=== PATIENT | female | born 1995 | race Caucasian/White ===

== ENCOUNTER 2022-01-15 17:16 | Outpatient (CLI) | payer OTHER, SELFPAY ==
[2022-01-15 17:41] LABS: Amphetamine Urine VISTA NEGATIVE (<1000 ng/mL); Barbiturate Urine VISTA NEGATIVE (< 200 ng/mL); Benzodiazepine Urine VISTA NEGATIVE (< 200 ng/mL); Cocaine Urine VISTA NEGATIVE (< 300 ng/mL); Ecstacy Urine VISTA NEGATIVE (< 500 ng/mL); Methadone Urine VISTA NEGATIVE (< 300 ng/mL); PCP Urine VISTA NEGATIVE (< 25 ng/mL); THC Urine VISTA NEGATIVE (< 50 ng/mL); Vista UDS pH Range 6
[2022-01-18 09:08] LABS: Chlamydia By Nucleic Acid AMP Negative (Negative)
[2022-01-18 10:21] LABS: Gonococcus By Nucleic Acid AMP Negative (Negative)
[2022-01-21 16:43] LABS: HPV Reflexed? NOT INDICATED
== END 2022-01-15 23:59 | disposition home or self-care (01) ==
PROVIDERS: PCP Family Medicine; Visit Provider Obstetrics & Gynecology
DX: Z34.91 Encounter for supervision of normal pregnancy, unspecified, first trimester (principal); Z12.4 Encounter for screening for malignant neoplasm of cervix
CPT/HCPCS: 80307; 87086; 87088; 87491; 87591; 88175; G0145

== ENCOUNTER 2022-01-29 16:17 | Outpatient (CLI) | payer OTHER, SELFPAY ==
[2022-01-29 16:43] LABS: Absolute Lymphocyte Count 1.58 X10^3/uL (0.83-4.51); Absolute Neutrophil Count 4.1 X10^3/uL (2.0-7.7); Basophil# 0.04 X10^3/uL; Basophil% 0.6 % (0-1); Eosinophil# 0.05 X10^3/uL; Eosinophils% 0.8 % (0-5); Hematocrit 34.9 % (37-47); Hemoglobin 11.7 g/dL (12.0-15.0); Lymphocyte # 1.58 X10^3/ul (0.83-4.51); Lymphocyte % 25.5 % (19-41); Mean Corp Hgb Conc 33.5 g/dL (32-36); Mean Corpuscular Hgb 30.2 pg (27.0-32.0); Mean Corpuscular Volume 90.2 fL (81-99); Mean Platelet Vol. 10.4 fl (6.2-12.0); Monocyte# 0.39 X10^3/uL; Monocyte% 6.3 % (0-10); NRBC Flagged by Analyzer 0 % (0-5); Neutrophil # 4.12 X10^3/uL (2.7-7.7); Neutrophil % 66.5 % (47-70); Platelet Count 183 K/mm3 (150-450); RBC Distribution Width CV 12.6 % (11.6-14.6); RBC Distribution Width SD 41.3 fl (35.1-43.9); Red Blood Count 3.87 M/mm3 (4.2-5.4); White Blood Count 6.2 K/mm3 (4.4-11.0)
[2022-01-29 17:24] LABS: NATERA MAILED SPECIMEN
[2022-01-30 09:08] LABS: HIV - WCH Non-Reactive (Nonreactive); Hepatitis B Surface Antigen Preliminary Reactive (Nonreactive); Hepatitis C Antibody Non-Reactive (Nonreactive); Rubella IgG Reactive (Nonreactive); Syphilis Antibodies Non-reactive
== END 2022-01-29 23:59 | disposition home or self-care (01) ==
PROVIDERS: PCP Family Medicine; Visit Provider Obstetrics & Gynecology
DX: Z34.81 Encounter for supervision of other normal pregnancy, first trimester (principal); Z31.430 Encounter of female for testing for genetic disease carrier status for procreative management; Z82.8 Family history of other disabilities and chronic diseases leading to disablement, not elsewhere classified
CPT/HCPCS: 36415; 85025; 86703; 86762; 86780; 86803; 86850; 86900; 86901; 87340

== ENCOUNTER → 2022-03-13 | Outpatient (CLI) | payer OTHER, SELFPAY ==
[2022-03-17 18:07] LABS: Dilute Prothrombin Time (dPT) 34.3 sec (0.0-47.6); Dilute Russell Viper Venom 33.4 sec (0.0-47.0); PTT-LA 34.4 sec (0.0-51.9); Thrombin Time 14.9 sec (0.0-23.0); dPT Confirm Ratio 1.09 Ratio (0.00-1.34)
[2022-03-18 09:07] LABS: Anti-Cardiolipin Ab, IgA, Qn < 9 APL U/mL (0-11); Anti-Cardiolipin Ab, IgG, Qn < 9 GPL U/mL (0-14); Anti-Cardiolipin Ab, IgM, Qn < 9 MPL U/mL (0-12); Beta-2-Glycoprotein I IgA <9 (0-25); Beta-2-Glycoprotein I IgG <9 (0-20); Beta-2-Glycoprotein I IgM <9 (0-32); Interpretation Comment: (.)
== END | disposition home or self-care (01) ==
LOC: LAB 15:38
PROVIDERS: PCP Family Medicine; Visit Provider Nurse Practitioner Women's Health
DX: N96 Recurrent pregnancy loss (principal)
CPT/HCPCS: 36415; 86146; 86147

== ENCOUNTER → 2022-03-26 | Outpatient (CLI) | payer OTHER, SELFPAY ==
--- NOTE | 2022-03-26 07:56 | US_ITS ---
STUDY: SECOND AND THIRD TRIMESTER OBSTETRICAL ULTRASOUND REASON FOR EXAM: Female, 26 years old LMP: 11/13/2021. TECHNIQUE: Transabdominal and Transvaginal TECHNICAL QUALITY: Adequate. PRIOR ULTRASOUND: None. FINDINGS: There is a single intrauterine fetus. The fetus is in a cephalic presentation. There is demonstrated cardiac activity with a heart rate of 157 bpm. There is a normal amniotic fluid volume. The largest amniotic fluid pocket measures 3.7 cm x 7.3 cm. The amniotic fluid index (KEIRY) is normal limits. The placenta is posterior and low lying but not previa in location. The tip of the placenta is 1.5 cm from the internal cervical os. There are Grade 0 placental changes. The cervix measures 4.8 cm in length. The bilateral adnexal regions are normal. BIOMETRY: BPD: 4.1 cm: 18 weeks, 2 days HC: 15.4 cm: 18 weeks, 2 days AC: 13.2 cm: 18 weeks, 4 days FL: 2.8 cm: 18 weeks, 3 days CI: 78% FL/BPD: 68% FL/HC: FL/AC: 21% HC/AC: 1.16 age by current US: 18 weeks, 2 days. ESTEFANI by current US: 08/25/2022. Estimated weight: 247 grams, +/- 37 grams, 24 %. Age by LMP: 19 weeks, 0 days. ESTEFANI by LMP: 08/20/2022. ANATOMY: Gender: Female Cranium: Normal lateral ventricles. Normal choroid plexus. Normal cerebellum. Normal cisterna magna. Normal face, nose and lips. Chest: Normal 4-chamber heart. Abdomen/Pelvis: Normal diaphragm. Normal stomach. Normal abdominal wall. Normal cord insertion. Normal 3 vessel cord. Normal kidneys. Normal bladder. Spine: Normal cervical spine. Normal thoracic spine. Normal lumbar spine. Normal sacrum. Extremities: Normal bilateral upper extremities. Normal bilateral lower extremities. IMPRESSION: Single live intrauterine gestation with mean gestational age of 18 weeks and 2 days. Electronically Signed: Nghia Mansfield MD at 11:01 EDT , STUDY: FIRST TRIMESTER OBSTETRICAL ULTRASOUND REASON FOR EXAM: Female, 26 years old . Cervical length measurement. LMP: 11/13/2021. TECHNIQUE: Transvaginal TECHNICAL QUALITY: Adequate. PRIOR ULTRASOUND: None. FINDINGS: The cervical length measures 4.8 cm US/OB Anatomy Scan IMPRESSION: Cervical length measures 4.8 cm. Electronically Signed: Nghia Mansfield MD at 11:02 EDT ,
== END | disposition home or self-care (01) ==
PROVIDERS: PCP Family Medicine; Referring Provider Nurse Practitioner Women's Health; Visit Provider Nurse Practitioner Women's Health
DX: Z34.92 Encounter for supervision of normal pregnancy, unspecified, second trimester (principal)
CPT/HCPCS: 76805; 76830

== ENCOUNTER 2022-05-14 11:49 | Outpatient (CLI) | payer OTHER, SELFPAY ==
[2022-05-14 12:27] LABS: Absolute Lymphocyte Count 1.22 X10^3/uL (0.83-4.51); Absolute Neutrophil Count 5.9 X10^3/uL (2.0-7.7); Basophil# 0.02 X10^3/uL; Basophil% 0.3 % (0-1); Eosinophil# 0.03 X10^3/uL; Eosinophils% 0.4 % (0-5); Hematocrit 30.9 % (37-47); Hemoglobin 10.2 g/dL (12.0-15.0); Lymphocyte # 1.22 X10^3/ul (0.83-4.51); Lymphocyte % 15.5 % (19-41); Mean Corpuscular Hgb 29.6 pg (27.0-32.0); Mean Corpuscular Volume 89.6 fL (81-99); Mean Platelet Vol. 10.3 fl (6.2-12.0); Monocyte# 0.69 X10^3/uL; Monocyte% 8.8 % (0-10); NRBC Flagged by Analyzer 0 % (0-5); Neutrophil # 5.85 X10^3/uL (2.7-7.7); Neutrophil % 74.4 % (47-70); Platelet Count 194 K/mm3 (150-450); RBC Distribution Width CV 12.5 % (11.6-14.6); RBC Distribution Width SD 40.3 fl (35.1-43.9); Red Blood Count 3.45 M/mm3 (4.2-5.4); White Blood Count 7.9 K/mm3 (4.4-11.0)
[2022-05-14 12:54] LABS: Anion Gap 5 (5-15); BUN 7 mg/dL (7-18); BUN/Creat Ratio 11.8 RATIO (10-20); Calcium,Total 8.6 mg/dL (8.5-10.1); Chloride 107 mmol/L (98-107); Creatinine, Serum 0.59 mg/dL (0.55-1.02); EST Glomerular Filtration Rate 132 mL/min (>60); Est Glom Filt Rate - Afr Amer 159 mL/min (>60); Glucose 96 mg/dL (74-106); Potassium 3.7 mmol/L (3.5-5.1); Sodium Level 138 mmol/L (136-145)
== END 2022-05-14 23:59 | disposition home or self-care (01) ==
LOC: LAB 11:50
PROVIDERS: Obstetrics & Gynecology; PCP Family Medicine; Referring Provider Nurse Practitioner Women's Health; Visit Provider Nurse Practitioner Women's Health
DX: Z34.92 Encounter for supervision of normal pregnancy, unspecified, second trimester (principal)
CPT/HCPCS: 36415; 80048; 85025; 86900; 86901

== ENCOUNTER → 2022-05-28 | Outpatient (CLI) | payer OTHER, SELFPAY ==
--- NOTE | 2022-05-28 17:31 | US_ITS ---
STUDY: LIMITED TRIMESTER OBSTETRICAL ULTRASOUND EXAMINATION FOR PLACENTA IS 1737 HOURS AND 05/28/2022 REASON FOR EXAM: Female, 26 years old placenta follow-up LMP: Not given. PRIOR ULTRASOUND: None. TECHNIQUE: Transabdominal and endovaginal ultrasound examination was performed per protocol. TECHNICAL QUALITY: Adequate. FINDINGS: A single fetus in cephalic presentation. There is a heartbeat of 158 bpm. There is a gestational age of 18 weeks and 3 days. There is a posterior grade 2 placenta lying 4.1 cm from the os (not low lying). US/OB Limited (No Biometrics) IMPRESSION: 1. Posterior grade 2 placenta lying 4.1 cm from the os (not low-lying). 2. Single fetus in cephalic presentation with a gestational age of 18 weeks and 3 days and a heart rate of 158 bpm. Electronically Signed: Sam West MD at 23:20 EDT ,
== END | disposition home or self-care (01) ==
PROVIDERS: PCP Family Medicine; Visit Provider Nurse Practitioner Women's Health
DX: O44.42 Low lying placenta NOS or without hemorrhage, second trimester (principal); Z3A.18 18 weeks gestation of pregnancy
CPT/HCPCS: 76815

== ENCOUNTER → 2022-06-04 | Outpatient (CLI) | payer OTHER, SELFPAY ==
[2022-06-04 18:13] LABS: Glucose Challenge Gest 1H 50g 113 mg/dL (70-140)
== END | disposition home or self-care (01) ==
LOC: LAB 16:21
PROVIDERS: PCP Family Medicine; Referring Provider Obstetrics & Gynecology; Visit Provider Obstetrics & Gynecology
DX: Z34.91 Encounter for supervision of normal pregnancy, unspecified, first trimester (principal); Z13.1 Encounter for screening for diabetes mellitus
CPT/HCPCS: 36415; 82950

== ENCOUNTER → 2022-06-12 | Outpatient (CLI) | payer OTHER, SELFPAY | END | disposition home or self-care (01) | LOC: LAB 16:39 | PROVIDERS: PCP Family Medicine; Visit Provider Obstetrics & Gynecology | DX: Z34.92 Encounter for supervision of normal pregnancy, unspecified, second trimester (principal) | CPT/HCPCS: 36415; 86900; 86901 ==

== ENCOUNTER → 2022-07-24 | Outpatient (CLI) | payer OTHER, SELFPAY | END | disposition home or self-care (01) | PROVIDERS: PCP Family Medicine; Visit Provider Obstetrics & Gynecology | DX: Z34.90 Encounter for supervision of normal pregnancy, unspecified, unspecified trimester (principal) | CPT/HCPCS: 87081 ==

== ENCOUNTER 2022-08-26 09:10 | Outpatient (CLI) | payer OTHER, SELFPAY ==
[2022-08-26 09:35] VITALS: BP 123/91; PULSE 103
[2022-08-26 09:36] VITALS: PULSE 101; O2SAT 94
[2022-08-26 09:48] VITALS: BMI 33.5
[2022-08-26 10:13] LABS: ROM Internal Control Test YES-OK TO RESULT pt. (Internal QC); ROM Patient Test Negative (Negative)
--- NOTE | 2022-08-26 11:06 | OB.TRI.HP_ITS ---
HPI - General HPI Narrative MRAQUES RUVALCABA, is a 26 y/o G1 who presents to L&D with thought that she may be ruptured. Nurses were given an order to collect a ROM + and this was negative. She is scheduled fro IOL tomorrow if no active labor. Maternal Data Information ESTEFANI Calculator Estimated Delivery Date Method Current WG Current Estimate 08/20/22 LMP (Certain) 40w 6d PFSH PFSH Medical History Anemia Low lying placenta nos or without hemorrhage, second trimester Palpitations Patent foramen ovale Home Medications escitalopram oxalate 10 mg tablet (Lexapro) 10 mg PO DAILY 01/07/22 [History Last Taken 08/25/22 22:00] famotidine 40 mg tablet 40 mg PO DAILY 01/07/22 [History Last Taken 08/26/22 09:00] lansoprazole 30 mg capsule,delayed release 30 mg PO DAILY 01/07/22 [History Last Taken 08/25/22 22:00] prenat.vits,pooja,[id number]-blrzc 1 tab PO DAILY 01/07/22 [History Last Taken 08/25/22 22:00] Flucelvax Quad [id number] (PF) 60 mcg (15 mcg x 4)/0.5 mL IM syringe (flu vac qs 2021(6 ms up)CD(PF)) 0.5 ml IM ONCE #0.5 mL 07/10/22 [Clinic Last Taken Unknown] ferrous sulfate 27 mg iron tablet 27 mg PO DAILY 07/24/22 [History Last Taken 08/26/22 07:00] magnesium 200 mg tablet 200 mg PO DAILY 08/14/22 [History Last Taken Unknown] docusate sodium 50 mg capsule 50 mg PO DAILY 08/26/22 [History Last Taken 08/26/22 09:00] Allergy/AdvReac Type Severity Reaction Status Date / Time No Known Allergies Allergy Verified 08/21/22 15:45 Family History Father Asthma Anxiety Surgical History S/P endoscopy S/P wisdom tooth extraction Social History adopted: No household members: spouse current occupational status: employed current occupation: [employer] pets and animals: Yes (avoid litter box) pets and animals: cat(s) Smoking Status: Never smoker alcohol intake: never substance use type: does not use do you feel safe at home: Yes additional social history: Jagjit History 1 Elective abortions Hx Para 0 Spontaneous abortions Hx # Term Pregnancies Ectopic pregnancies Hx # Pregnancies Multiple births # of living children Visit Details Expected Delivery Route/Plan Labor Preferences- CB/BF classes: did both labor support person: jagjit labor intervention preferences: deciding pain management options preferred: deciding, leaning to no cut cord/dad catch: ask first : yes PP control planned: unsure discussed possible routes of delivery and associated risks: [] special requests: tub room if availablen Plans Covid status: discussed Flu vaccine: discussed Tdap vaccine: given Rhogam: given LARC form signed: declined movement and labor precautions reviewed. Problem list reviewed and updated with the most current plan of care details and appropriate orders placed. Relevant counseling for the gestational age provided. Continue routine care and follow up unless otherwise noted in visit notes/problem list details OB Flowsheet Initial Weight: 143 lb Date -?-?-?-?-?-?-?-?-?-?-?-?- EGA Weight BP Urine Prot -?-?-?-?-?-?-?-?-?-?-?-?- Glucose FHR FuHt Pres Dilation -?-?-?-?-?-?-?-?-?-?-?-?- Effaced St Visit Note 01/15/22 -?-?-?-?-?-?-?-?-?-?-?-?- 9w 0d 163 lb (+20 lb) 100/80 -?-?-?-?-?-?-?-?-?-?-?-?- 180 -?-?-?-?-?-?-?-?-?-?-?-?- SM- CRL 2.1 cm c ons with LMP 02/20/22 -?-?-?-?-?-?-?-?-?-?-?-?- 14w 1d 142 lb (-16 oz) 114/62 Negative -?-?-?-?-?-?-?-?-?-?-?-?- Negative 163 -?-?-?-?-?-?-?-?-?-?-?-?- MH-NO VB, LOF. D enies concerns. 03/13/22 -?-?-?-?-?-?-?-?-?-?-?-?- 17w 1d 141 lb 8 oz (-1 lb 8 oz) 118/66 -?-?-?-?-?-?-?-?-?-?-?-?- -?-?-?-?-?-?-?-?-?-?-?-?- SM- no vb crampi 04/10/22 -?-?-?-?-?-?-?-?-?-?-?-?- 21w 1d 149 lb 8 oz (+6 lb 8 oz) 108/60 Negative -?-?-?-?-?-?-?-?-?-?-?-?- Negative 140 -?-?-?-?-?-?-?-?-?-?-?-?- SM- no vb crampi ng 05/06/22 -?-?-?-?-?-?-?-?-?-?-?-?- 24w 6d 151 lb (+8 lb) 100/72 -?-?-?-?-?-?-?-?-?-?-?-?- 150 28 -?-?-?-?-?-?-?-?-?-?-?-?- JV-no lof, vagin al bleeding, or dec fm. glucola given. plan for gct, rhogam, and tdap next visit. 06/12/22 -?-?-?-?-?-?-?-?-?-?-?-?- 30w 1d 163 lb 2 oz (+20 lb 2 oz) 114/72 Negative -?-?-?-?-?-?-?-?-?-?-?-?- Negative 140 31 -?-?-?-?-?-?-?-?-?-?-?-?- SM- no vb lof go od fm no regular ctx 07/10/22 -?-?-?-?-?-?-?-?-?-?-?-?- 34w 1d 169 lb (+26 lb) 105/70 Negative -?-?-?-?-?-?-?-?-?-?-?-?- Negative 135 34 -?-?-?-?-?-?-?-?-?-?-?-?- JV- no lof, vagi nal bleeding, or dec fm. no complaints. signed LARC today 07/24/22 -?-?-?-?-?-?-?-?-?-?-?-?- 36w 1d 173 lb (+30 lb) 121/79 -?-?-?-?-?-?-?-?-?-?-?-?- 145 36 Cephalic 0.5 -?-?-?-?-?-?-?-?-?-?-?-?- SM- no vb lof go od fm no regular ctx gbs done 07/31/22 -?-?-?-?-?-?-?-?-?-?-?-?- 37w 1d 177 lb (+34 lb) 130/82 Negative -?-?-?-?-?-?-?-?-?-?-?-?- Negative 145 37 Cephalic 1 -?-?-?-?-?-?-?-?-?-?-?-?- 0 -3 SM- no vb lof good fm no regular ctx 08/07/22 -?-?-?-?-?-?-?-?-?-?-?-?- 38w 1d 180 lb 8 oz (+37 lb 8 oz) 124/79 Negative -?-?-?-?-?-?-?-?-?-?-?-?- Negative 147 38 Cephalic 1 .5 -?-?-?-?-?-?-?-?-?-?-?-?- 70 -2 JV- labor precautions discussed. no lof, vaginal bleeding, or dec fm. 08/14/22 -?-?-?-?-?-?-?-?-?-?-?-?- 39w 1d 182 lb 4 oz (+39 lb 4 oz) 112/79 Negative -?-?-?-?-?-?-?-?-?-?-?-?- Negative 140 39 Cephalic 1 .5 -?-?-?-?-?-?-?-?-?-?-?-?- 70 -2 SM- no vb lof good fm no regular ctx 08/21/22 -?-?-?-?-?-?-?-?-?-?-?-?- 40w 1d 183 lb (+40 lb) 118/80 Negative -?-?-?-?-?-?-?-?-?-?-?-?- Negative 169 40 Cephalic 2 -?-?-?-?-?-?-?-?-?-?-?-?- 30 -3 JV- no lof , vaginal bleeding, or dec fm. planning IOL at 41 weeks . ROS Constitutional Constitutional: Reports systems reviewed and no addt'l complaints, except as documented Gastrointestinal Gastrointestinal: Denies bloating, constipation, cramping, diarrhea, nausea or vomiting Genitourinary Genitourinary: Reports other Details: Denies vaginal odor, vaginal bleeding, or vaginal discharge ; Denies difficulty urinating or flank pain NST FHR Rate Baby A Baseline: 140 Variability:: Moderate Accelerations:: 15 x 15 Decelerations:: None NST Reactive:: Yes FHR Category:: Category I Charges/Coding Multi Select Codes Urinary/Genital Urinary/Genital CPT Codes: 12418-85 non-stress test Interp
--- NOTE | 2022-08-26 11:06 | OB.TRI.NOTE ---
HPI - General HPI Narrative MARQUES RUVALCABA, is a 26 y/o G1 who presents to L&D with thought that she may be ruptured. Nurses were given an order to collect a ROM + and this was negative. She is scheduled fro IOL tomorrow if no active labor. Maternal Data Information ESTEFANI Calculator Estimated Delivery Date Method Current WG Current Estimate 08/20/22 LMP (Certain) 40w 6d PFSH PFSH Medical History Anemia Low lying placenta nos or without hemorrhage, second trimester Palpitations Patent foramen ovale Home Medications escitalopram oxalate 10 mg tablet (Lexapro) 10 mg PO DAILY 01/07/22 [History Last Taken 08/25/22 22:00] famotidine 40 mg tablet 40 mg PO DAILY 01/07/22 [History Last Taken 08/26/22 09:00] lansoprazole 30 mg capsule,delayed release 30 mg PO DAILY 01/07/22 [History Last Taken 08/25/22 22:00] prenat.vits,pooja,ivw-agbn-tbpel 1 tab PO DAILY 01/07/22 [History Last Taken 08/25/22 22:00] Flucelvax Quad [id number] (PF) 60 mcg (15 mcg x 4)/0.5 mL IM syringe (flu vac qs 2021(6 ms up)CD(PF)) 0.5 ml IM ONCE #0.5 mL 07/10/22 [Clinic Last Taken Unknown] ferrous sulfate 27 mg iron tablet 27 mg PO DAILY 07/24/22 [History Last Taken 08/26/22 07:00] magnesium 200 mg tablet 200 mg PO DAILY 08/14/22 [History Last Taken Unknown] docusate sodium 50 mg capsule 50 mg PO DAILY 08/26/22 [History Last Taken 08/26/22 09:00] Allergy/AdvReac Type Severity Reaction Status Date / Time No Known Allergies Allergy Verified 08/21/22 15:45 Family History Father Asthma Anxiety Surgical History S/P endoscopy S/P wisdom tooth extraction Social History adopted: No household members: spouse current occupational status: employed current occupation: [employer] pets and animals: Yes (avoid litter box) pets and animals: cat(s) Smoking Status: Never smoker alcohol intake: never substance use type: does not use do you feel safe at home: Yes additional social history: Jagjit History 1 Elective abortions Hx Para 0 Spontaneous abortions Hx # Term Pregnancies Ectopic pregnancies Hx # Pregnancies Multiple births # of living children Visit Details Expected Delivery Route/Plan Labor Preferences- CB/BF classes: did both labor support person: jagjit labor intervention preferences: deciding pain management options preferred: deciding, leaning to no cut cord/dad catch: ask first : yes PP control planned: unsure discussed possible routes of delivery and associated risks: [] special requests: tub room if availablen Plans Covid status: discussed Flu vaccine: discussed Tdap vaccine: given Rhogam: given LARC form signed: declined movement and labor precautions reviewed. Problem list reviewed and updated with the most current plan of care details and appropriate orders placed. Relevant counseling for the gestational age provided. Continue routine care and follow up unless otherwise noted in visit notes/problem list details OB Flowsheet Initial Weight: 143 lb Date <del>?</del> EGA Weight BP Urine Prot <del>?</del> Glucose FHR FuHt Pres Dilation <del>?</del> Effaced St Visit Note 01/15/22 <del>?</del> 9w 0d 163 lb (+20 lb) 100/80 <del>?</del> 180 <del>?</del> SM- CRL 2.1 cm cons with LMP 02/20/22 <del>?</del> 14w 1d 142 lb (-16 oz) 114/62 Negative <del>?</del> Negative 163 <del>?</del> MH-NO VB, LOF. Denies concerns. 03/13/22 <del>?</del> 17w 1d 141 lb 8 oz (-1 lb 8 oz) 118/66 <del>?</del> <del>?</del> SM- no vb cramping 04/10/22 <del>?</del> 21w 1d 149 lb 8 oz (+6 lb 8 oz) 108/60 Negative <del>?</del> Negative 140 <del>?</del> SM- no vb cramping 05/06/22 <del>?</del> 24w 6d 151 lb (+8 lb) 100/72 <del>?</del> 150 28 <del>?</del> JV-no lof, vaginal bleeding, or dec fm. glucola given. plan for gct, rhogam, and tdap next visit. 06/12/22 <del>?</del> 30w 1d 163 lb 2 oz (+20 lb 2 oz) 114/72 Negative <del>?</del> Negative 140 31 <del>?</del> SM- no vb lof good fm no regular ctx 07/10/22 <del>?</del> 34w 1d 169 lb (+26 lb) 105/70 Negative <del>?</del> Negative 135 34 <del>?</del> JV- no lof, vaginal bleeding, or dec fm. no complaints. signed LARC today 07/24/22 <del>?</del> 36w 1d 173 lb (+30 lb) 121/79 <del>?</del> 145 36 Cephalic 0.5 <del>?</del> SM- no vb lof good fm no regular ctx gbs done 07/31/22 <del>?</del> 37w 1d 177 lb (+34 lb) 130/82 Negative <del>?</del> Negative 145 37 Cephalic 1 <del>?</del> 0 -3 SM- no vb lof good fm no regular ctx 08/07/22 <del>?</del> 38w 1d 180 lb 8 oz (+37 lb 8 oz) 124/79 Negative <del>?</del> Negative 147 38 Cephalic 1.5 <del>?</del> 70 -2 JV- labor precautions discussed. no lof, vaginal bleeding, or dec fm. 08/14/22 <del>?</del> 39w 1d 182 lb 4 oz (+39 lb 4 oz) 112/79 Negative <del>?</del> Negative 140 39 Cephalic 1.5 <del>?</del> 70 -2 SM- no vb lof good fm no regular ctx 08/21/22 <del>?</del> 40w 1d 183 lb (+40 lb) 118/80 Negative <del>?</del> Negative 169 40 Cephalic 2 <del>?</del> 30 -3 JV- no lof, vaginal bleeding, or dec fm. planning IOL at 41 weeks . ROS Constitutional Constitutional: Reports systems reviewed and no addt'l complaints, except as documented Gastrointestinal Gastrointestinal: Denies bloating, constipation, cramping, diarrhea, nausea or vomiting Genitourinary Genitourinary: Reports other Details: Denies vaginal odor, vaginal bleeding, or vaginal discharge ; Denies difficulty urinating or flank pain NST FHR Rate Baby A Baseline: 140 Variability:: Moderate Accelerations:: 15 x 15 Decelerations:: None NST Reactive:: Yes FHR Category:: Category I Charges/Coding Multi Select Codes Urinary/Genital Urinary/Genital CPT Codes: 86584-54 non-stress test Interp
== END 2022-08-26 11:25 | disposition home or self-care (01) ==
LOC: WPOUT 09:23 → WP 09:24
PROVIDERS: PCP Family Medicine; Referring Provider Obstetrics & Gynecology; Visit Provider Obstetrics & Gynecology
DX: O47.1 False labor at or after 37 completed weeks of gestation (principal); Z3A.40 40 weeks gestation of pregnancy
CPT/HCPCS: 59025; 59050; 84112; 99218; G0378

== ENCOUNTER 2022-08-27 07:00 | Inpatient (IN) | payer OTHER, SELFPAY ==
[2022-08-27] VITALS (32 sets, daily range): BP systolic 112–157; BP diastolic 55–99; PULSE 77–111; TEMP 36.6–37.8; O2SAT 79–100; BMI 33.5
--- NOTE | 2022-08-27 07:57 | HP.PCM.OB_ITS ---
HPI - General General Date of Admission: 08/27/22 HPI Narrative MARQUES RUVALCABA, is a 26 y/o who presents to L&D at 41 weeks gestation for induction of labor Maternal Data Information ESTEFANI Calculator Estimated Delivery Date Method Current WG Current Estimate 08/20/22 LMP (Certain) 41w 0d PFS PFS Medical History (Updated 08/27/22 @ 09:00 by Chauncey Ramesh) Anemia Anxiety Low lying placenta nos or without hemorrhage, second trimester Palpitations Patent foramen ovale Home Medications escitalopram oxalate 10 mg tablet (Lexapro) 10 mg PO DAILY anxiety 01/07/22 [History Last Taken 08/26/22 22:00 10 mg] famotidine 40 mg tablet 40 mg PO DAILY gerd 01/07/22 [History Last Taken 08/27/22 06:00 40 mg] lansoprazole 30 mg capsule,delayed release 30 mg PO DAILY gerd 01/07/22 [History Last Taken 08/26/22 22:00 30 mg] prenat.vits,pooja,ouh-bccr-nnpna 1 tab PO DAILY 01/07/22 [History Last Taken 08/26/22 22:00 1 tab] ferrous sulfate 27 mg iron tablet 27 mg PO DAILY anemia 07/24/22 [History Last Taken 08/27/22 06:00 27 mg] magnesium 200 mg tablet 200 mg PO DAILY 08/14/22 [History Last Taken Unknown] docusate sodium 50 mg capsule 50 mg PO DAILY constipation 08/26/22 [History Last Taken 08/27/22 06:00 50 mg] Allergy/AdvReac Type Severity Reaction Status Date / Time No Known Allergies Allergy Verified 08/27/22 07:45 Family History Father Asthma Anxiety Surgical History S/P endoscopy S/P wisdom tooth extraction Social History adopted: No household members: spouse current occupational status: employed current occupation: [employer] pets and animals: Yes (avoid litter box) pets and animals: cat(s) Smoking Status: Never smoker alcohol intake: never substance use type: does not use do you feel safe at home: Yes additional social history: Jagjit History 1 Elective abortions Hx Para 0 Spontaneous abortions Hx # Term Pregnancies Ectopic pregnancies Hx # Pregnancies Multiple births # of living children Visit Details Expected Delivery Route/Plan Labor Preferences- CB/BF classes: did both labor support person: jagjit labor intervention preferences: deciding pain management options preferred: deciding, leaning to no cut cord/dad catch: ask first : yes PP control planned: unsure discussed possible routes of delivery and associated risks: [] special requests: tub room if availablen Plans Covid status: discussed Flu vaccine: discussed Tdap vaccine: given Rhogam: given LARC form signed: declined movement and labor precautions reviewed. Problem list reviewed and updated with the most current plan of care details and appropriate orders placed. Relevant counseling for the gestational age provided. Continue routine care and follow up unless otherwise noted in visit notes/problem list details OB Flowsheet Initial Weight: 143 lb Date -?-?-?-?-?-?-?-?-?-?-?-?- EGA Weight BP Urine Prot -?-?-?-?-?-?-?-?-?-?-?-?- Glucose FHR FuHt Pres Dilation -?-?-?-?-?-?-?-?-?-?-?-?- Effaced St Visit Note 01/15/22 -?-?-?-?-?-?-?-?-?-?-?-?- 9w 0d 163 lb (+20 lb) 100/80 -?-?-?-?-?-?-?-?-?-?-?-?- 180 -?-?-?-?-?-?-?-?-?-?-?-?- SM- CRL 2.1 cm c ons with LMP 02/20/22 -?-?-?-?-?-?-?-?-?-?-?-?- 14w 1d 142 lb (-16 oz) 114/62 Negative -?-?-?-?-?-?-?-?-?-?-?-?- Negative 163 -?-?-?-?-?-?-?-?-?-?-?-?- MH-NO LOF. Chanelle PEDRAZA enies concerns. 03/13/22 -?-?-?-?-?-?-?-?-?-?-?-?- 17w 1d 141 lb 8 oz (-1 lb 8 oz) 118/66 -?-?-?-?-?-?-?-?-?-?-?-?- -?-?-?-?-?-?-?-?-?-?-?-?- SM- no vb crampi ng 04/10/22 -?-?-?-?-?-?-?-?-?-?-?-?- 21w 1d 149 lb 8 oz (+6 lb 8 oz) 108/60 Negative -?-?-?-?-?-?-?-?-?-?-?-?- Negative 140 -?-?-?-?-?-?-?-?-?-?-?-?- SM- no vb crampi ng 05/06/22 -?-?-?-?-?-?-?-?-?-?-?-?- 24w 6d 151 lb (+8 lb) 100/72 -?-?-?-?-?-?-?-?-?-?-?-?- 150 28 -?-?-?-?-?-?-?-?-?-?-?-?- JV-no lof, vagin al bleeding, or dec fm. glucola given. plan for gct, rhogam, and tdap next visit. 06/12/22 -?-?-?-?-?-?-?-?-?-?-?-?- 30w 1d 163 lb 2 oz (+20 lb 2 oz) 114/72 Negative -?-?-?-?-?-?-?-?-?-?-?-?- Negative 140 31 -?-?-?-?-?-?-?-?-?-?-?-?- SM- no vb lof go od fm no regular ctx 07/10/22 -?-?-?-?-?-?-?-?-?-?-?-?- 34w 1d 169 lb (+26 lb) 105/70 Negative -?-?-?-?-?-?-?-?-?-?-?-?- Negative 135 34 -?-?-?-?-?-?-?-?-?-?-?-?- JV- no lof, vagi nal bleeding, or dec fm. no complaints. signed LARC today 07/24/22 -?-?-?-?-?-?-?-?-?-?-?-?- 36w 1d 173 lb (+30 lb) 121/79 -?-?-?-?-?-?-?-?-?-?-?-?- 145 36 Cephalic 0.5 -?-?-?-?-?-?-?-?-?-?-?-?- SM- no vb lof go od fm no regular ctx gbs done 07/31/22 -?-?-?-?-?-?-?-?-?-?-?-?- 37w 1d 177 lb (+34 lb) 130/82 Negative -?-?-?-?-?-?-?-?-?-?-?-?- Negative 145 37 Cephalic 1 -?-?-?-?-?-?-?-?-?-?-?-?- 0 -3 SM- no vb lof good fm no regular ctx 08/07/22 -?-?-?-?-?-?-?-?-?-?-?-?- 38w 1d 180 lb 8 oz (+37 lb 8 oz) 124/79 Negative -?-?-?-?-?-?-?-?-?-?-?-?- Negative 147 38 Cephalic 1 .5 -?-?-?-?-?-?-?-?-?-?-?-?- 70 -2 JV- labor precautions discussed. no lof, vaginal bleeding, or dec fm. 08/14/22 -?-?-?-?-?-?-?-?-?-?-?-?- 39w 1d 182 lb 4 oz (+39 lb 4 oz) 112/79 Negative -?-?-?-?-?-?-?-?-?-?-?-?- Negative 140 39 Cephalic 1 .5 -?-?-?-?-?-?-?-?-?-?-?-?- 70 -2 SM- no vb lof good fm no regular ctx 08/21/22 -?-?-?-?-?-?-?-?-?-?-?-?- 40w 1d 183 lb (+40 lb) 118/80 Negative -?-?-?-?-?-?-?-?-?-?-?-?- Negative 169 40 Cephalic 2 -?-?-?-?-?-?-?-?-?-?-?-?- 30 -3 JV- no lof , vaginal bleeding, or dec fm. planning IOL at 41 weeks . 08/27/22 -?-?-?-?-?-?-?-?-?-?-?-?- 41w 0d 183 lb 6.793 oz (+40 lb 6.793 oz) 134/83 134/83 114/63 123/76 -?-?-?-?-?-?-?-?-?-?-?-?- -?-?-?-?-?-?-?-?-?-?-?-?- ROS Constitutional Constitutional: Denies change in weight, fatigue, fever(s), headache(s), poor appetite or weakness Eyes Eyes: Denies blurry vision, change in vision, seeing flashes or spots in vision ENT HEENT: Denies dizziness, headache(s), loss taste/smell or sore throat Cardiovascular Cardiovascular: Denies chest pain, dizziness, dyspnea, irregular heart rhythm, leg edema, palpitations, rapid heart rate or vomiting Respiratory/Chest Respiratory/Chest: Denies chest tightness, cough, dyspnea or breast pain Gastrointestinal Gastrointestinal: Denies abdominal pain, anorexia, constipation, cramping, diarrhea, hemorrhoids, vomiting or weight changes Genitourinary Genitourinary: Denies dysuria, flank pain, genital lesions, genital pain, urinary frequency or urinary urgency Musculoskeletal Musculoskeletal: Denies back pain, difficulty walking, joint pain, limited range of motion, muscle cramps or numbness Integumentary Integumentary: Denies lesions or unusual bruising Neurologic Neurologic: Denies abnormal movements, abnormal speech, dizziness, numbness, seizure-like activity or syncope Psychiatric Psychiatric: Denies anxiety, behavioral changes, change in appetite, change in libido, cognitive impairment, confusion, depression, difficulty concentrating, hallucinations or suicidal thoughts Endocrine Endocrinology: Denies excessive sweating, polydipsia or polyuria Hematologic/Lymphatic Hematologic/Lymphatic: Denies easy bleeding, easy bruising or lymphadenopathy Allergic/Immunologic Allergic/Immunologic: Denies itchy eyes, lip swelling, seasonal rhinorrhea, rhinitis, throat swelling, tongue swelling, eczemia, wheezing or asthma Vital Signs Vital Signs Vital Signs: 08/27/22 07:38 08/27/22 07:38 08/27/22 07:38 Temperature Temperature Source Pulse Rate 109 H Blood Pressure 134/83 H BP Systolic 134 BP Diastolic 83 Pulse Ox 94 08/27/22 07:38 08/27/22 07:38 08/27/22 07:38 Temperature Temperature Source Temporal Pulse Rate 111 H Blood Pressure BP Systolic BP Diastolic Pulse Ox 95 08/27/22 07:38 08/27/22 07:38 08/27/22 07:38 Temperature Temperature Source Pulse Rate 109 H Blood Pressure 134/83 H BP Systolic 134 BP Diastolic 83 Pulse Ox 94 08/27/22 07:38 08/27/22 08:08 08/27/22 08:08 Temperature 97.8 F Temperature Source Pulse Rate 105 H Blood Pressure BP Systolic BP Diastolic Pulse Ox 79 08/27/22 11:09 08/27/22 11:09 08/27/22 11:09 Temperature Temperature Source Temporal Pulse Rate 85 Blood Pressure 114/63 BP Systolic 114 BP Diastolic 63 Pulse Ox 08/27/22 11:09 08/27/22 12:29 08/27/22 12:30 Temperature 98.2 F Temperature Source Temporal Pulse Rate Blood Pressure 123/76 H BP Systolic 123 BP Diastolic 76 Pulse Ox 08/27/22 12:30 08/27/22 12:29 08/27/22 12:31 Temperature 97.9 F Temperature Source Pulse Rate 86 83 Blood Pressure BP Systolic BP Diastolic Pulse Ox 08/27/22 12:31 Temperature Temperature Source Pulse Rate Blood Pressure BP Systolic BP Diastolic Pulse Ox 96 Weight Weight: 183 lb 6.793 oz Body Mass Index (BMI) 33.5 Physical Exam Const alert, oriented x3, no apparent distress and healthy appearing General Appearance: cooperative; Negative for anxious HEENT normocephalic Face and Sinus: normal facial exam Eyes EOMs intact bilaterally and no scleral icterus General Eye: normal appearance of both eyes Neck full ROM and supple Lymph Lymphatic: no lymphadenopathy noted Chest Chest: abnormal inspection of the chest Resp normal respiratory effort Effort and Inspection: able to speak in complete sentences Cardio regular rate GI soft to palpation and non-tender Inspection: gravid Palpation: soft; Negative for tender external exam normal Amniotic Fluid: ROM+plus Back/Spine no CVA tenderness Extremity normal to inspection, full ROM and no clubbing, cyanosis or edema General Extremity: Negative for calf tenderness or edema Skin Lesions: no lesions Rashes: no rashes Psych mental status grossly normal Labs Labs Labs: Blood Type A NEGATIVE Antibody Screen NEGATIVE Hct 37.3 % (37-47) Hgb 12.0 g/dL (12.0-15.0) Pap Smear Negative Obstetrics US Syphilis Total Ab Non-reactive Rubella IgG Antibody Reactive (Nonreactive) Hep Bs Antigen Preliminary Reactive (Nonre active) H Chlamydia DNA ([place]) Negative (Negative) Neisseria gonorrhoeae DNA ([place]) Negative (Negative) HIV 1&2 Antibody Non-Reactive (Nonreactive) Glucose 1 Hr 50 gm 113 mg/dL (70-140) Miscellaneous Test Assessment & Plan (1) GERD (gastroesophageal reflux disease): QUALIFIERS: Esophagitis presence: without esophagitis Qualified Code(s): K21.9 - Gastro-esophageal reflux disease without esophagitis COMMENT: pepcid prilosec. (2) Anxiety: COMMENT: lexapro. counseling. (3) : QUALIFIERS: Weeks of gestation: 40 weeks Qualified Code(s): Z3A.40 - 40 weeks gestation of COMMENT: GBS Negative, APL neg., low risk NIPT, declined carrier screening, ntd screening declined. (4) Supervision of normal first : QUALIFIERS: Trimester: second trimester Qualified Code(s): Z34.02 - Encounter for supervision of normal first , second trimester COMMENT: PRR ESTEFANI:08/20/22 girl Spouse:Jagjit (5) Family history of Down syndrome: COMMENT: Jagjit's brother. NIPT low risk (6) Rh negative status during : COMMENT: rhogam given (7) Anemia: COMMENT: iron supplement (8) False-positive serological test result: COMMENT: Prelim Hep B positive, confirming test is negative. APL panel neg PLAN: Plan Patient presents IOL, plan management for with cytotec/arom, and possibily pitocin later today. Pain management: plans epidural. GBS negative. Management of any complications: none I have reviewed the [facility] and made any clinically relevant updates.
[2022-08-27] MEDS: Lactated Ringers 1,000 ML 50 ML IV (08:05)
[2022-08-27 08:27] LABS: Absolute Lymphocyte Count 1.35 X10^3/uL (0.83-4.51); Absolute Neutrophil Count 7.2 X10^3/uL (2.0-7.7); Basophil# 0.02 X10^3/uL; Basophil% 0.2 % (0-1); Eosinophil# 0.04 X10^3/uL; Eosinophils% 0.4 % (0-5); Hematocrit 37.3 % (37-47); Lymphocyte # 1.35 X10^3/ul (0.83-4.51); Lymphocyte % 14.4 % (19-41); Mean Corp Hgb Conc 32.2 g/dL (32-36); Mean Corpuscular Hgb 29.7 pg (27.0-32.0); Mean Corpuscular Volume 92.3 fL (81-99); Mean Platelet Vol. 10.4 fl (6.2-12.0); Monocyte# 0.62 X10^3/uL; Monocyte% 6.6 % (0-10); NRBC Flagged by Analyzer 0 % (0-5); Neutrophil # 7.23 X10^3/uL (2.7-7.7); Neutrophil % 77.3 % (47-70); Platelet Count 168 K/mm3 (150-450); RBC Distribution Width CV 13.7 % (11.6-14.6); RBC Distribution Width SD 46.2 fl (35.1-43.9); Red Blood Count 4.04 M/mm3 (4.2-5.4); White Blood Count 9.4 K/mm3 (4.4-11.0)
[2022-08-27] MEDS: miSOPROStol 50 MCG TABLET BUCCAL (08:55)
--- NOTE | 2022-08-27 12:59 | PN_ITS ---
Progress Note pt is feeling contractions every 2-4 minutes but able to talk through them. her family states that she is still laughing and has a good attitude. She consents to AROM if vaginal exam is favorable. current tracing: FHT: 130's Moderate variability reactive no decelerations category I tracing [place]: some coupling Contractions, overall 1-3 min apart. cx: 2/60/-1, membranes ruptured with clear fluid return reviewed tracing abnormalities since last note: no changes A/P: IOL for post dates continue monitoring. 2:30 is te 6 hr sasha for the cytotec. epidural prn.
[2022-08-27] MEDS: LACTATED RINGERS 500 ML 999 ML IV (15:44)
[2022-08-27] MEDS: fentaNYL-bupivacaine (epidural) 100 ML BAG EPIDURAL (16:58)
[2022-08-27] MEDS: Oxytocin 15 Units/NS 250ml 15 UNITS/250 ML IV.SOLN 2 UNITS IV (17:39)
[2022-08-27] MEDS: Lactated Ringers 1,000 ML 200 ML IV (17:40)
[2022-08-27] MEDS: Famotidine 20 MG Tablet PO (21:16)
[2022-08-27] MEDS: Methylergonovine 0.2 MG/ML Ampul IM (21:50)
[2022-08-27] MEDS: Oxytocin 10 UNITS/ML Vial IM (21:55)
--- NOTE | 2022-08-27 22:05 | OP.PCM_ITS ---
Assessment & Plan (1) GERD (gastroesophageal reflux disease): QUALIFIERS: Esophagitis presence: without esophagitis Qualified Code(s): K21.9 - Gastro-esophageal reflux disease without esophagitis COMMENT: africa coronel. (2) Anxiety: COMMENT: lexapro. counseling. (3) : QUALIFIERS: Weeks of gestation: 40 weeks Qualified Code(s): Z3A.40 - 40 weeks gestation of COMMENT: GBS Negative, APL neg., low risk NIPT, declined carrier screening, ntd screening declined. (4) Supervision of normal first : QUALIFIERS: Trimester: second trimester Qualified Code(s): Z34.02 - Encounter for supervision of normal first , second trimester COMMENT: PRR ESTEFANI:08/20/22 girl Spouse:Jagjit (5) Family history of Down syndrome: COMMENT: Jagjit's brother. NIPT low risk (6) False-positive serological test result: COMMENT: Prelim Hep B positive, confirming test is negative. APL panel neg (7) Rh negative status during : COMMENT: rhogam given (8) Anemia: COMMENT: iron supplement Maternal Data Information ESTEFANI Calculator Estimated Delivery Date Method Current WG Current Estimate 08/20/22 LMP (Certain) 41w 0d Final ESTEFANI: 08/20/22 Final ESTEFANI Source: LMP Gestational age: 41 weeks Vaginal Delivery Operative Information Date of Procedure: 08/27/22 Pre-Operative Diagnosis: 41 weeks , induction for post dates Post-Operative Diagnosis: 41 weeks , induction for post dates, hemorrhage Surgery / Procedure Performed: Spontaneous Vaginal Delivery Type of Anesthesia: Epidural Estimated Blood Loss: 500cc Findings Description of Procedure: Patient began pushing and delivered the head in the SHAHLA presentation. The head was delivered atraumatically. The anterior and posterior shoulders delivered without complication followed by the rest of the and the was placed on the maternal abdomen. Delayed cord clamping was employed for approximately 60 seconds. The baby was cyanotic and had a poor respiratory effort and was passed of for pediatric assessment. Cord was clamped and cut and gentle traction was applied to the cord and the placenta delivered spontaneously immediately following it was noted to be intact with three-vessel cord. The perineum and vagina were inspected and noted to have s 2nd degree laceration. This was repaired using a 3-0 vicryl rapide suture. Pitocin IV was started, however there was a kink in the line and a problem with the pump resulting in ut erine atony. The patient had a large gush of blood. Internal uterine massage was performed and a 7 cm clot was removed from the uterus. IM pitocin was then given followed by methergine. The pump then starte to work again with the help of the attending bedside nurse and the bleeding slowed drastically. EBL was 500cc. Patient and recovered well with scores of 5/6/9 Presentation: Vertex Amniotic Membrane Rupture Type: Spontaneous Amniotic Fluid Description: Clear Placental Delivery Description: Spontaneous Placenta Disposition: [facility] Cord Vessel Description: 3 Vessels Cord Entanglement: None A Gender: Female (1 minute): 5 (5 minute): 6 Delayed Cord Clamping: Yes Post Vaginal Delivery Medications Given After Delivery: IV Pitocin, IM Methergin and - (IM pitocin ) Episiotomy Description: None Laceration: 2nd degree Procedures Urinary/Genital [id number]: [id number] Vaginal Delivery [facility]
--- NOTE | 2022-08-27 22:17 | DCINST_ITS ---
Discharge Instructions Diet Discharge Diet: No restrictions Activity Discharge Activity: Return to Normal Activity, May Not Drive (while taking narcotic pain medications.) and May Shower May resume sexual activity in: 4-6 weeks Dressing / Incision Call your doctor if your incision/area has: Continuous Slow Oozing, Sudden Increased Bleeding, Increased Pain/ Swelling, Increased Redness and Foul Smelling Discharge Follow Up Care Please Follow Up With: Marcia Kennedy, When: Call [phone] to make an appointment with your doctor in 6 weeks. If you had elevated blood pressure or 4th degree laceration, you will need to be seen in 2 weeks. Test Results: Test results from this visit will be discussed in further detail at your follow- up appointment, if applicable. Discharge Plan Admission Admit Date/Time: 08/27/22 07:00 Attending Provider: Marcia Kennedy Primary Care Provider: Odette Chao Discharge Orders/Prescriptions Prescriptions: No Action prenat.vits,pooja,uoy-bvfe-svrqp Tablet 1 tab PO DAILY escitalopram oxalate [Lexapro] 10 mg tablet 10 mg PO DAILY lansoprazole 30 mg capsule,delayed release(DR/EC) 30 mg PO DAILY famotidine 40 mg tablet 40 mg PO DAILY ferrous sulfate 27 mg iron tablet 27 mg PO DAILY magnesium 200 mg tablet 200 mg PO DAILY Colace 50 mg Capsule 50 mg PO DAILY Referrals / Follow Up: Odette Chao MD [Primary Care Provider] -
[2022-08-27] MEDS: 0.9% Saline Lock 10 ML Syringe IV (22:31)
[2022-08-27] MEDS: Escitalopram Oxalate 10 MG Tablet PO (23:49)
[2022-08-27] MEDS: Lansoprazole 15 MG Capsule.DR 30 MG PO (23:49)
[2022-08-28] VITALS (7 sets, daily range): BP systolic 106–123; BP diastolic 69–79; PULSE 60–100; RESP 16; TEMP 35.8–37.2; O2SAT 96
[2022-08-28] MEDS: Acetaminophen 500 MG Tablet 1000 MG PO ×3 (01:29→20:02)
[2022-08-28] MEDS: Naproxen 500 MG Tablet PO ×2 (06:04→16:15)
[2022-08-28 06:32] LABS: Hematocrit 34.7 % (37-47); Hemoglobin 11.2 g/dL (12.0-15.0); Mean Corp Hgb Conc 32.3 g/dL (32-36); Mean Corpuscular Hgb 29.9 pg (27.0-32.0); Mean Corpuscular Volume 92.8 fL (81-99); Mean Platelet Vol. 10.2 fl (6.2-12.0); Platelet Count 154 K/mm3 (150-450); RBC Distribution Width CV 13.8 % (11.6-14.6); RBC Distribution Width SD 46.6 fl (35.1-43.9); Red Blood Count 3.74 M/mm3 (4.2-5.4); White Blood Count 15.7 K/mm3 (4.4-11.0)
[2022-08-28] MEDS: Senna/Docusate Sodium 1 Tablet PO (12:26)
[2022-08-28] MEDS: Prenatal Vits Tablet 1 TABLET PO (12:26)
[2022-08-28] MEDS: Ferrous Sulfate 325 MG Tablet 162.5 MG PO (12:26)
--- NOTE | 2022-08-28 14:11 | CASEMGMT ---
Social Work Brief Assessment Labor and Delivery Unit Patient Address: [facility] [place] [address] Phone number: [phone] Date of Referral/Notification: 08/28/2022 Time of Referral: [phone] Referred By: Dr. Le Date of Intervention: 08/28/2022 Time of Intervention: 1400 Reason for Referral: Maternal anxiety Informant: Medical record and mother of baby (TRE) Deborah Angelo; father of baby (FOB) Jagjit Angelo present. History: TRE is a 26-year-old female, to the [facility] for the last 2 and half years. TRE and FOJulian have been together for about 6 years altogether. Upon admission TRE denied any safety concerns or history of violence. TRE is 1, para 0 now 1 after delivering baby girl Cristina on 08/27/2022. weight 7 pounds 11 ounces. Apgars 5-6-9 at 1-5-10 minutes of life respectively. care started at 9 weeks gestation and regular thereafter. There is a family history of the MAKENNA's brother having Down syndrome. Maternal history of anxiety for which TRE has done counseling on and off with the last counselor being at [facility]. TRE reports to be on a low-dose of Lexapro which seems to be helping, so does plan to remain on this in the timeframe. 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 MOB and FOJulian deny any history or concerns with substances including alcohol and marijuana. Neither smoke. TRE's drug screen on 01/15/2022 was negative. Assessment: Met with MOB and FOB in room, introducing to self and social work role. Both engaged in conversation and appeared relaxed with each other. MOB and FOB report to have adequate housing, no concerns with transportation, adequate supplies for baby including safe sleep space and car seat. MOB and FOB have support from both sides of the family, hindu family, and friends. TRE admits having some worry about anxiety, but at this point reports to feel mood and anxiety are stable and overall feeling good. MOB indicates willingness to return back to counseling should symptoms arise and become distressing. Does plan to remain on Lexapro in the timeframe. MOB and FOB both agree they do pretty well talking with each other when needed. MOB excepted information on mood and anxiety disorders, reviewed risk factors, and provided at the counseling list should MOB need in the future. MOB denies any needs with home-going and no concerns voiced by nursing staff regarding parent-child interactions or bonding. MOB with bright affect, good eye contact, and spontaneous conversation. MOB agrees to help me grow referral. Online referral to help me grow via the [facility] secure website completed this date. Plan: MOB and infant will discharge home when medically stable. Support in place and FOB reports plan to be at home for 2 weeks to help with the transition. Resources for mood and anxiety disorders provided. Help me grow referral made. No further needs requested or indicated. -JOSE ANTONIO Stacy, THADDEUS *This note was generated with Cloud[employer] dictation software. It may contain incorrect words, spelling, and punctuation that were not noted in review of the chart prior to signing*
--- NOTE | 2022-08-28 18:01 | PCM.PN.OB ---
Subjective Subjective Patient doing well without complaints. Tolerating PO. Ambulating and voiding without difficulty. Feeding well. Denies chest pain, shortness of breath, calf pain/swelling, fevers, chills, lightheadedness. Objective Data Objective Data Vital Signs: Vital Signs Temp Pulse Resp BP Pulse Ox O2 Del Method 96.4 F L 60 16 106/79 96 Room Air 08/28/22 14:00 08/28/22 14:00 08/28/22 14:00 08/28/22 14:00 08/28/22 00:04 08/28/22 14:00 Oxygen Delivery Method Room Air Weight: 183 lb 6.793 oz Body Mass Index (BMI) 33.5 Intake & Output: Intake and Output for Last 24 Hours 08/26/22 08/27/22 08/28/22 23:59 23:59 23:59 Intake Total 2154.17 / 2154.17 Output Total 575 / 575 1350 / 1350 Balance 1579.17 / 1579.17 -1350 / -1350 Lab / Micro Data Result Diagrams: 08/28/22 06:20 Labs: Laboratory Results - last 24 hr 08/28/22 06:20: WBC 15.7 H, RBC 3.74 L, Hgb 11.2 L, Hct 34.7 L, MCV 92.8, MCH 29.9, MCHC 32.3, RDW Std Deviation 46.6 H, RDW Coeff of Abimael 13.8, Plt Count 154, MPV 10.2 Micro: Microbiology 08/27/22 08:10 Nasal Secretion SARS-CoV-2 Antigen (Rapid) - Final ROS Constitutional Constitutional: Denies chills, fatigue, fever(s), poor appetite or weakness Eyes Eyes: Denies blurry vision, change in vision, seeing flashes or spots in vision ENT HEENT: Denies dizziness, headache(s), loss taste/smell or sore throat Cardiovascular Cardiovascular: Denies chest pain, dizziness, dyspnea, irregular heart rhythm, palpitations or rapid heart rate Respiratory/Chest Respiratory/Chest: Denies chest tightness, cough, dyspnea or breast pain Gastrointestinal Gastrointestinal: Denies abdominal pain, constipation or vomiting Genitourinary Genitourinary: Denies dysuria or flank pain Musculoskeletal Musculoskeletal: Denies difficulty walking, joint pain, limited range of motion or numbness Neurologic Neurologic: Denies abnormal movements, abnormal speech, dizziness, numbness, seizure-like activity or syncope Psychiatric Psychiatric: Denies anxiety, behavioral changes, change in appetite, confusion, depression or suicidal thoughts Physical Exam Const alert, oriented x3 and no apparent distress General Appearance: cooperative and comfortable Resp normal respiratory effort Cardio regular rate GI normal to inspection, nondistended, normoactive bowel sounds GI Narrative: uterus is firm below umbilicus Palpation: soft Back/Spine no CVA tenderness and thoraco-lumbar ROM normal Extremity normal to inspection, no clubbing, cyanosis or edema, no calf tenderness and no pedal edema Psych mental status grossly normal, thought process normal, cooperative, affect normal, speech normal, activity/motor behavior normal, denies homicidal ideation and denies suicidal ideation Assessment & Plan (1) GERD (gastroesophageal reflux disease): QUALIFIERS: Esophagitis presence: without esophagitis Qualified Code(s): K21.9 - Gastro-esophageal reflux disease without esophagitis COMMENT: africa coronel. (2) Anxiety: COMMENT: lexapro. counseling. (3) : QUALIFIERS: Weeks of gestation: 40 weeks Qualified Code(s): Z3A.40 - 40 weeks gestation of COMMENT: GBS Negative, APL neg., low risk NIPT, declined carrier screening, ntd screening declined. (4) Supervision of normal first : QUALIFIERS: Trimester: second trimester Qualified Code(s): Z34.02 - Encounter for supervision of normal first , second trimester COMMENT: PRR ESTEFANI:08/20/22 girl Spouse:Jagjit (5) Family history of Down syndrome: COMMENT: Jagjit's brother. NIPT low risk (6) False-positive serological test result: COMMENT: Prelim Hep B positive, confirming test is negative. APL panel neg (7) Rh negative status during : COMMENT: rhogam given (8) Anemia: COMMENT: iron supplement (9) Status post vaginal delivery: PLAN: Plan s/p PPD # 1 1. routine post delivery care 2. breast feeding- support given 3. rh positive 4. rubella immune 5. plan for dc to home tomorrow
[2022-08-28] MEDS: Lansoprazole 15 MG Capsule.DR 30 MG PO (21:59)
[2022-08-28] MEDS: Escitalopram Oxalate 10 MG Tablet PO (21:59)
[2022-08-29 02:00] VITALS: BP 107/64; PULSE 78; RESP 17; TEMP 36.2
[2022-08-29] MEDS: Acetaminophen 500 MG Tablet 1000 MG PO ×2 (02:05→09:14)
[2022-08-29 09:00] VITALS: BP 121/86; PULSE 84; RESP 16; TEMP 36.4
[2022-08-29] MEDS: Benzocaine/Lanolin/Aloe Vera 1 SPRAY EACH TOPICAL (09:15)
[2022-08-29] MEDS: FLU VACC QS2022-23(6MOS UP)/PF 60 MCG/0.5 ML SYRINGE IM (09:20)
--- NOTE | 2022-08-29 09:50 | PCM.DC.SUM ---
Providers Date of Admission: 08/27/22 Primary Care Physician: Dr. Odette Chao MD Reason For Visit: VAGINAL DELIVERY Diagnosis Discharge Diagnosis (1) GERD (gastroesophageal reflux disease): Status: Acute Code(s): K21.9 - Gastro-esophageal reflux disease without esophagitis Qualifiers: Esophagitis presence: without esophagitis Qualified Code(s): K21.9 - Gastro-esophageal reflux disease without esophagitis (2) Anxiety: Status: Acute Code(s): F41.9 - Anxiety disorder, unspecified (3) : Status: Acute Code(s): Z34.90 - Encounter for supervision of normal , unspecified, unspecified trimester Qualifiers: Weeks of gestation: 40 weeks Qualified Code(s): Z3A.40 - 40 weeks gestation of (4) Supervision of normal first : Status: Acute Code(s): Z34.00 - Encounter for supervision of normal first , unspecified trimester Qualifiers: Trimester: second trimester Qualified Code(s): Z34.02 - Encounter for supervision of normal first , second trimester (5) Family history of Down syndrome: Status: Acute Code(s): Z82.79 - Family history of other congenital malformations, deformations and chromosomal abnormalities (6) False-positive serological test result: Status: Acute Code(s): R76.8 - Other specified abnormal immunological findings in serum (7) Rh negative status during : Status: Acute Code(s): O26.899 - Other specified related conditions, unspecified trimester; Z67.91 - Unspecified blood type, Rh negative (8) Anemia: Status: Acute Code(s): D64.9 - Anemia, unspecified (9) Status post vaginal delivery: Status: Acute Medications at Discharge Home Medications escitalopram oxalate 10 mg tablet (Lexapro) 10 mg PO DAILY anxiety 01/07/22 famotidine 40 mg tablet 40 mg PO DAILY gerd 01/07/22 lansoprazole 30 mg capsule,delayed release 30 mg PO DAILY gerd 01/07/22 prenat.vits,pooja,coe-wzvd-gwmry 1 tab PO DAILY 01/07/22 ferrous sulfate 27 mg iron tablet 27 mg PO DAILY anemia 07/24/22 magnesium 200 mg tablet 200 mg PO DAILY 08/14/22 docusate sodium 50 mg capsule 50 mg PO DAILY constipation 08/26/22 naproxen 250 mg tablet 500 mg PO Q8H PRN PRN Mild Pain #30 TABLETS 08/27/22 Hospital Course Procedures - (vaginal delivery ) Summary of Care Provided Minutes Spent on Discharge: 15 Hospital Course: The patient was admitted to labor and delivery for induction of labor on 08/27/22. She delivered a viable female and recovered well on ppd#1. She was observed over night on ppd#1 for a 500 cc ebl and did well over night. She was then dc'd to home on ppd #2 Physical Exam Const alert, oriented x3 and no apparent distress General Appearance: cooperative and comfortable Resp normal respiratory effort Cardio regular rate GI normal to inspection, nondistended, normoactive bowel sounds GI Narrative: uterus is firm below umbilicus Palpation: soft Back/Spine no CVA tenderness and thoraco-lumbar ROM normal Extremity normal to inspection, no clubbing, cyanosis or edema, no calf tenderness and no pedal edema Psych mental status grossly normal, thought process normal, cooperative, affect normal, speech normal, activity/motor behavior normal, denies homicidal ideation and denies suicidal ideation Weight / BMI Weight Weight: 183 lb 6.793 oz Body Mass Index (BMI) 33.5 ABG / Lab / Microbiology Data Result Diagrams: 08/28/22 06:20 Microbiology: Microbiology 08/27/22 08:10 Nasal Secretion SARS-CoV-2 Antigen (Rapid) - Final D/C Instructions Discharge Diet: No restrictions May resume sexual activity in: 4-6 weeks Call your doctor if your incision/area has: Continuous Slow Oozing, Sudden Increased Bleeding, Increased Pain/ Swelling, Increased Redness and Foul Smelling Discharge Please Follow Up With: Marcia Kennedy DO When: Call [phone] to make an appointment with your doctor in 6 weeks. If you had elevated blood pressure or 4th degree laceration, you will need to be seen in 2 weeks. Meaningful Use Info Meaningful Use Diagnoses (Choose all that apply): None applicable Discharge Plan Admission Admit Date/Time: 08/27/22 07:00 Primary Reason for Your Visit: vaginal delivery Attending Provider: Marcia Kennedy Primary Care Provider: Odette Chao Discharge Orders/Prescriptions Prescriptions: New naproxen 250 mg tablet 500 mg PO Q8H PRN PRN (Reason: Mild Pain ) Qty: 30 0RF Continued prenat.vits,pooja,ear-jdle-jcwef Tablet 1 tab PO DAILY escitalopram oxalate [Lexapro] 10 mg tablet 10 mg PO DAILY lansoprazole 30 mg capsule,delayed release(DR/EC) 30 mg PO DAILY famotidine 40 mg tablet 40 mg PO DAILY ferrous sulfate 27 mg iron tablet 27 mg PO DAILY magnesium 200 mg tablet 200 mg PO DAILY docusate sodium 50 mg Capsule 50 mg PO DAILY Referrals / Follow Up: Odette Chao MD [Primary Care Provider] - Disposition Disposition (needs filled in before D/C Order can be placed): Home, Self Care
[2022-08-29] MEDS: Prenatal Vits Tablet 1 TABLET PO (13:20)
[2022-08-29] MEDS: Ferrous Sulfate 325 MG Tablet 162.5 MG PO (13:21)
[2022-08-29 13:25] VITALS: BP 113/79; PULSE 79; RESP 16; TEMP 36.1
--- NOTE | 2022-08-29 13:43 | NURSING ---
1341 Vitals, round, and assessment documented on wrong patient
== END 2022-08-29 16:20 | disposition home or self-care (01) | DRG 806 ==
PROVIDERS: Admitting Provider Obstetrics & Gynecology; PCP Family Medicine; Visit Provider Obstetrics & Gynecology
DX: O48.0 Post-term pregnancy (principal); Z37.0 Single live birth; O72.1 Other immediate postpartum hemorrhage; F41.9 Anxiety disorder, unspecified; K21.9 Gastro-esophageal reflux disease without esophagitis; O99.344 Other mental disorders complicating childbirth; O99.62 Diseases of the digestive system complicating childbirth; O70.1 Second degree perineal laceration during delivery; Z3A.41 41 weeks gestation of pregnancy; O99.02 Anemia complicating childbirth; Z79.899 Other long term (current) drug therapy
CPT/HCPCS: 59025; 59050; 85025; 85027; 86850; 86900; 86901; 87426; 99218; J7120; 90686; A4216; G0378

== ENCOUNTER → 2024-03-06 | Outpatient (CLI) | payer MEDICAID, SELFPAY ==
[2024-03-09 06:09] LABS: Chlamydia By Nucleic Acid AMP Negative (Negative); Gonococcus By Nucleic Acid AMP Negative (Negative)
== END | disposition home or self-care (01) ==
LOC: LABSPEC 16:03
PROVIDERS: PCP Family Medicine; Referring Provider Obstetrics & Gynecology; Visit Provider Obstetrics & Gynecology
DX: O09.90 Supervision of high risk pregnancy, unspecified, unspecified trimester (principal); Z3A.00 Weeks of gestation of pregnancy not specified
CPT/HCPCS: 87086; 87491; 87591

== ENCOUNTER → 2024-03-15 | Outpatient (CLI) | payer OTHER, SELFPAY ==
[2024-03-15 14:33] LABS: Absolute Lymphocyte Count 1.96 X10^3/uL (0.83-4.51); Absolute Neutrophil Count 4.2 X10^3/uL (2.0-7.7); Basophil# 0.03 X10^3/uL; Basophil% 0.5 % (0-1); Eosinophil# 0.03 X10^3/uL; Eosinophils% 0.5 % (0-5); Hematocrit 39.8 % (37-47); Lymphocyte # 1.96 X10^3/ul (0.83-4.51); Lymphocyte % 29.7 % (19-41); Mean Corp Hgb Conc 32.7 g/dL (32-36); Mean Corpuscular Hgb 28.3 pg (27.0-32.0); Mean Corpuscular Volume 86.5 fL (81-99); Mean Platelet Vol. 9.9 fl (6.2-12.0); Monocyte# 0.39 X10^3/uL; Monocyte% 5.9 % (0-10); NRBC Flagged by Analyzer 0 % (0-5); Neutrophil # 4.17 X10^3/uL (2.7-7.7); Neutrophil % 63.2 % (47-70); Platelet Count 249 K/mm3 (150-450); RBC Distribution Width CV 13.2 % (11.6-14.6); RBC Distribution Width SD 41.3 fl (35.1-43.9); White Blood Count 6.6 K/mm3 (4.4-11.0)
[2024-03-15 15:53] LABS: HIV - WCH Non-Reactive (Nonreactive); Hepatitis B Surface Antigen Non-Reactive (Nonreactive); Hepatitis C Antibody Non-Reactive (Nonreactive); Rubella IgG Reactive (Nonreactive); Syphilis Antibodies Non-reactive
== END | disposition home or self-care (01) ==
PROVIDERS: PCP Family Medicine; Visit Provider Obstetrics & Gynecology
DX: Z34.90 Encounter for supervision of normal pregnancy, unspecified, unspecified trimester (principal); Z3A.00 Weeks of gestation of pregnancy not specified
CPT/HCPCS: 36415; 83036; 85025; 86703; 86762; 86780; 86803; 86850; 86870; 86900; 86901; 87340

== ENCOUNTER → 2024-03-20 | Outpatient (CLI) | payer OTHER, SELFPAY | END | disposition home or self-care (01) | LOC: LAB 15:05 | PROVIDERS: PCP Family Medicine; Referring Provider Obstetrics & Gynecology; Visit Provider Obstetrics & Gynecology | DX: Z34.01 Encounter for supervision of normal first pregnancy, first trimester (principal); Z3A.00 Weeks of gestation of pregnancy not specified | CPT/HCPCS: 36415 ==

== ENCOUNTER → 2024-03-27 | Outpatient (CLI) | payer OTHER, SELFPAY | END | disposition home or self-care (01) | PROVIDERS: PCP Family Medicine; Referring Provider Obstetrics & Gynecology; Visit Provider Obstetrics & Gynecology | DX: R76.0 Raised antibody titer (principal) ==

== ENCOUNTER → 2024-05-26 | Outpatient (CLI) | payer OTHER, SELFPAY ==
--- NOTE | 2024-05-26 15:31 | US_ITS ---
HISTORY: Anatomy Scan. TECHNIQUE: Transabdominal pelvic ultrasound was performed. 115 images. COMPARISON: None. FINDINGS: INTRAUTERINE GESTATION(s): Single. PRESENTATION: Breech. HEART MOTION: 144 bpm. PLACENTA: Posterior, no placenta previa. CERVIX: 4.5 cm long and closed AMNIOTIC FLUID: Maximum vertical pocket 3.8 cm. biometry- BIPARIETAL DIAMETER: 4.5 cm, corresponding to 19 weeks 3 days. HEAD CIRCUMFERENCE: 16.7 cm, corresponding to 19 weeks 2 days. ABDOMINAL CIRCUMFERENCE: 14.1 cm, corresponding to 19 weeks 3 days. FEMUR LENGTH: 2.9 cm, corresponding to 18 weeks 6 days. ESTIMATED GESTATIONAL AGE: 19 weeks 2 days. ESTIMATED DUE DATE (ESTEFANI): 10/18/2024. ESTIMATED WEIGHT: 280 g corresponding to 26th percentile ANATOMY: Anterior and posterior cranial fossa, orbits, nose/lips, facial profile, spine, upper and lower extremities, 4 chamber heart, three-vessel cord insertion, stomach, kidneys, and bladder visualized. IMPRESSION: Single living intrauterine currently in breech presentation with an estimated gestational age of 19 weeks 2 days. Unremarkable anatomic survey. Electronically Signed: Daisy Banuelos MD at 9:59 EDT , HISTORY: Anatomy Scan. TECHNIQUE: Transabdominal and transvaginal pelvic ultrasound was performed. 115 images. COMPARISON: None. FINDINGS: INTRAUTERINE GESTATION(s): Single. PRESENTATION: Breech. HEART MOTION: 144 bpm. PLACENTA: Posterior, no placenta previa. CERVIX: 4.5 cm long and closed AMNIOTIC FLUID: Maximum vertical pocket 3.8 cm. biometry- BIPARIETAL DIAMETER: 4.5 cm, corresponding to 19 weeks 3 days. HEAD CIRCUMFERENCE: 16.7 cm, corresponding to 19 weeks 2 days. ABDOMINAL CIRCUMFERENCE: 14.1 cm, corresponding to 19 weeks 3 days. FEMUR LENGTH: 2.9 cm, corresponding to 18 weeks 6 days. ESTIMATED GESTATIONAL AGE: 19 weeks 2 days. ESTIMATED DUE DATE (ESTEFANI): 10/18/2024. ESTIMATED WEIGHT: 280 g corresponding to 26th percentile ANATOMY: Anterior and posterior cranial fossa, orbits, nose/lips, facial profile, spine, upper and lower extremities, 4 chamber heart, three-vessel cord insertion, stomach, kidneys, and bladder visualized. US/OB Anatomy w/ Transvaginal
== END | disposition home or self-care (01) ==
LOC: US 15:28
PROVIDERS: PCP Family Medicine; Referring Provider Advanced Practice Midwife; Visit Provider Advanced Practice Midwife
DX: O09.90 Supervision of high risk pregnancy, unspecified, unspecified trimester (principal); Z3A.00 Weeks of gestation of pregnancy not specified
CPT/HCPCS: 76805; 76817

== ENCOUNTER → 2024-06-01 | Outpatient (CLI) | payer OTHER, SELFPAY | END | disposition home or self-care (01) | LOC: LAB 10:19 | PROVIDERS: PCP Family Medicine; Referring Provider Obstetrics & Gynecology; Visit Provider Obstetrics & Gynecology | DX: Z00.00 Encounter for general adult medical examination without abnormal findings (principal) ==

== ENCOUNTER → 2024-07-03 | Outpatient (CLI) | payer OTHER, SELFPAY | END | disposition home or self-care (01) | PROVIDERS: Obstetrics & Gynecology; PCP Family Medicine; Referring Provider Obstetrics & Gynecology; Visit Provider Obstetrics & Gynecology | DX: R76.0 Raised antibody titer (principal) | CPT/HCPCS: 36415 ==

== ENCOUNTER → 2024-07-26 | Outpatient (CLI) | payer OTHER, SELFPAY ==
[2024-07-26 09:51] LABS: Absolute Lymphocyte Count 1.51 X10^3/uL (0.83-4.51); Absolute Neutrophil Count 5.6 X10^3/uL (2.0-7.7); Basophil# 0.01 X10^3/uL; Basophil% 0.1 % (0-1); Eosinophil# 0.06 X10^3/uL; Eosinophils% 0.8 % (0-5); Hematocrit 35.6 % (37-47); Hemoglobin 11.6 g/dL (12.0-15.0); Lymphocyte # 1.51 X10^3/ul (0.83-4.51); Lymphocyte % 19.8 % (19-41); Mean Corp Hgb Conc 32.6 g/dL (32-36); Mean Corpuscular Hgb 29.5 pg (27.0-32.0); Mean Corpuscular Volume 90.6 fL (81-99); Mean Platelet Vol. 9.7 fl (6.2-12.0); Monocyte# 0.46 X10^3/uL; NRBC Flagged by Analyzer 0 % (0-5); Neutrophil # 5.55 X10^3/uL (2.7-7.7); Neutrophil % 72.9 % (47-70); Platelet Count 220 K/mm3 (150-450); RBC Distribution Width CV 13.3 % (11.6-14.6); RBC Distribution Width SD 43.8 fl (35.1-43.9); Red Blood Count 3.93 M/mm3 (4.2-5.4); White Blood Count 7.6 K/mm3 (4.4-11.0)
[2024-07-26 10:12] LABS: Glucose Challenge Gest 1H 50g 165 mg/dL (70-140)
[2024-07-26 10:45] LABS: HIV - WCH Non-Reactive (Nonreactive); Syphilis Antibodies Non-reactive
== END | disposition home or self-care (01) ==
LOC: LAB 09:21
PROVIDERS: PCP Family Medicine; Referring Provider Obstetrics & Gynecology; Visit Provider Obstetrics & Gynecology
DX: O26.899 Other specified pregnancy related conditions, unspecified trimester (principal); Z67.91 Unspecified blood type, Rh negative; Z3A.00 Weeks of gestation of pregnancy not specified; Z13.1 Encounter for screening for diabetes mellitus
CPT/HCPCS: 36415; 82950; 85025; 86703; 86780; 86850; 86870; 86900; 86901

== ENCOUNTER → 2024-08-01 | Outpatient (CLI) | payer OTHER, SELFPAY ==
[2024-08-01 09:18] LABS: Glucose GTT-Gestation. Fasting 101 mg/dL (<105)
== END | disposition home or self-care (01) ==
LOC: LAB 07:02
PROVIDERS: PCP Family Medicine; Referring Provider Obstetrics & Gynecology; Visit Provider Obstetrics & Gynecology
DX: O99.810 Abnormal glucose complicating pregnancy (principal); Z3A.00 Weeks of gestation of pregnancy not specified
CPT/HCPCS: 36415; 82951; 82952

== ENCOUNTER → 2024-08-09 | Outpatient (CLI) | payer OTHER, SELFPAY ==
--- OUTSIDE RECORDS SUMMARY | 2024-08-09 11:11 | XMS RPT_ITS | CCD ---
Author Organization [facility] Care Team Providers Care Machine Operator Hop Worker Name Role Phone Silvia Schmid Unavailable Unavailable Redick, Clara A Unavailable Unavailable Wadena, Sidra Unavailable Unavailable Wadena, Sidra Unavailable Unavailable Vonsdorf, Odette Unavailable Unavailable Vonsdorf, Odette A Unavailable Unavailab le Redick, Clara A Unavailable Unavailable VONSDORF ODETTE A Primary Care Unavailab DIONTE Ramirez Referring Unavailable Chinedu Reynoldsine A Primary Care Provider Jignesh Painting Unavailable Unavailable Unavailable Primary Care Provider Unavailabl e Odette Reynolds Primary Care Provider Odette Reynolds Unavailable Unavailable Unavailable Odette Reynolds MD Primary Care Provider Odette Reynolds MD Unavailable LILIBETH ROMERO Referring Unavailable LONGSDORF, ODETTE A Primary Care Unavailab le LONGLENOREORF, ODETTE A Attending Unavailab le LONGSDORF, ODETTE A Primary Care Unavailab DANIKA Dinero Attending Unavailable LONGSDORF, ODETTE A Referring Unavailab le LONGSDORF, ODETTE A Primary Care Unavailab le LONGSDORF, ODETTE A Attending Unavailab le RODOLFO, ODETTE A Primary Care Unavailab LILIBETH Kong Attending Unavailable LONGSDORF, ODETTE A Primary Care Unavailab le LONGSDORF, ODETTE A Referring Unavailab le LONGSDORF, ODETTE A Primary Care Unavailab DANIKA Dinero Referring Unavailable LONGSDORF, ODETTE A Primary Care Unavailab DANIKA Dinero Referring Unavailable ODETTE REYNOLDS Primary Care Unavailab DANIKA Dinero Referring Unavailable ODETTE REYNOLDS Primary Care Unavailab DANIKA Dinero Referring Unavailable ODETTE REYNOLDS Primary Care Unavailab flynn Medications Current Medications Medication Drug Class(es) Dates Sig (Normalized) Sig (Original) escitalopram 10 mg oral tablet (18 sources) Serotonin Reuptake Inhibitor Start: 08-16-2023 End: 11-08-2023 take 1 tablet by mouth once daily escitalopram (Lexapro) 10 mg tablet Indications: Generalized anxiety disorder Take 1 tablet (10 mg) by mouth once daily. 90 tablet 1 11/08/2023 Active Start: 08-06-2021 End: 02-16-2023 take 1 tablet by mouth once daily escitalopram (Lexapro) 10 mg tablet Indications: Generalized anxiety disorder Take 1 tablet (10 mg) by mouth once daily. 90 tablet 1 02/16/2023 Active famotidine 40 mg oral tablet (17 sources) Histamine-2 Receptor Antagonist Start: 12-23-2021 End: 11-08-2023 take 1 tablet by mouth once daily famotidine (Pepcid) 40 mg tablet Indications: Gastroesophageal reflux disease, unspecified whether esophagitis present Take 1 tablet (40 mg) by mouth once daily. 90 tablet 1 11/08/2023 Active Start: 12-23-2021 Famotidine 40 MG Oral Tablet Quantity: 90 Refills: 0 Ordered: 31-May-2022 DO Start : 23-Dec-2021 Active Start: 08-06-2021 Famotidine 20 MG Oral Tablet Quantity: 0 Refills: 0 Ordered: 06-Aug-2021 Odette Reynolds MD Start : 06-Aug-2021 Active lansoprazole 30 mg delayed release oral capsule (17 sources) Proton Pump Inhibitor Start: 07-30-2020 End: 11-08-2023 take 1 capsule by mouth once daily lansoprazole (Prevacid) [address] capsule Indications: Gastroesophageal reflux disease, unspecified whether esophagitis present Take 1 capsule (30 mg) by mouth once daily. 90 capsule 1 11/08/2023 Active meloxicam 15 mg oral tablet (6 sources) Nonsteroidal Anti-inflammatory Drug Start: 11-08-2023 End: 11-07-2024 take 1 tablet by mouth once daily meloxicam (Mobic) 15 mg tablet Indications: Bilateral hip pain , Acetabular dysplasia Take 1 tablet (15 mg) by mouth once daily. 30 tablet 1 11/08/2023 11/07/2024 Active Completed/Discontinued Medications Medication Drug Class(es) Dates Sig (Normalized) Sig (Original) Norgestim-Eth Estrad Triphasic 0.18/0.215/0.25 MG-25 MCG Oral Tablet (5 sources) Progestin, Estrogen Start: 10-02-2019 take 1 tablet by mouth once daily Norgestim-Eth Estrad Triphasic 0.18/0.215/0.25 MG-25 MCG Oral Tablet TAKE 1 TABLET BY MOUTH EVERY DAY Quantity: 1 Refills: 3 Sidra Ross DO Start : 02-Oct-2019 Active 28 Tablet Pack Start: 10-02-2019 take 1 tablet by denise th once daily Norgestim-Eth Estrad Triphasic 0.18/0.215/0.25 MG-25 MCG Oral Tablet TAKE 1 TABLET DAILY. Quantity: 1 Refills: 11 Sidra Ross DO Start : 02-Oct-2019 Active 28 Tablet Pack fluticasone propionate 0.05 mg/actuat metered dose nasal spray (2 sources) Corticosteroid Start: 08-21-2020 take 2 spray(s) nasal route once daily Fluticasone Propionate 50 MCG/ACT Nasal Suspension SPRAY 2 SPRAY Daily in each nostril Quantity: 1 Refills: 11 Odette Reynolds MD Start : 21-Aug-2020 Active 16 GM Bottle Omeprazole (5 sources) Proton Pump Inhibitor Omeprazole CPDR Refills: 0 DO Active Omeprazole CPDR Refills: 0 Active RABEprazole sodium 20 mg delayed release oral tablet (1 source) Proton Pump Inhibitor Start: 09-07-2019 take 1 tablet by mouth twice daily RABEprazole Sodium 20 MG Oral Tablet Delayed Release TAKE 1 TABLET TWICE DAILY. Quantity: 60 Refills: 5 Silvia Schmid DO Start : 07-Sep-2019 Active Problems Active Problems Problem Classification Problem Date Documented Da te Episodic/Chronic Anxiety disorders (20 sources) Anxiety disorder; Translations: [Anxiety state, unspecified] Onset: 3 02-16-2023 Chronic Cardiac and circulatory congenital anomalies (17 sources) Patent foramen ovale; Translations: [Ostium secundum type atrial septal defect] Onset: 3 02-16-2023 Chronic Cardiac dysrhythmias (11 sources) Palpitations; Translations: [Palpitations] Episodic Esophageal disorders (20 sources) Gastroesophageal reflux disease; Translations: [Esophageal reflux] Onset: 3 02-16-2023 Chronic Menstrual disorders (5 sources) Amenorrhea; Translations: [Absence of menstruation] Chronic Other congenital anomalies (6 sources) Disorder of hip joint; Translations: [Other specified congenital deformities of hip] Onset: 4 11-08-2023 Chronic Other congenital anomalies (4 sources) Other specified congenital deformities of hip; Translations: [Other specified congenital deformities of hip] Onset: 4 Chronic Other endocrine disorders (5 sources) Menarche; Translations: [History of Menarche] Chronic Other gastrointestinal disorders (1 source) Burping; Translations: [Eructation] Episodic Other non-traumatic joint disorders (11 sources) Hip pain; Translations: [Pain in right hip] Onset: 4 02-16-2023 Episodic Other and delivery including normal (1 source) ; Translations: [ state, incidental] Episodic Other screening for suspected conditions (not mental disorders or infectious disease) (20 sources) Cancer cervix screening status; Translations: [Screening for malignant neoplasms of cervix] Episodic Comment on above: 10/02/2019-NEGATIVE; Past or Other Problems Problem Classification Problem Date Documented Da te Episodic/Chronic Gastrointestinal hemorrhage (11 sources) Hematochezia; Translations: [Blood in stool] Resolved: 09-11-2020 Episodic Other ear and sense organ disorders (9 sources) Ear sensations - finding; Translations: [Other disorders of ear] Resolved: 09-11-2020 Episodic Other non-traumatic joint disorders (4 sources) Pain in right hip joint; Translations: [Pain in right hip] Onset: 11-11-2023 11-04-2023 Episodic Other non-traumatic joint disorders (3 sources) Pain in right hip; Translations: [Pain in right hip] Onset: 11-11-2023 Episodic Other non-traumatic joint disorders (6 sources) Pain in left hip; Translations: [Pain in left hip] Onset: 11-11-2023 Episodic Unclassified (5 sources) Cancer cervix screening status; Translations: [Screening for cervical cancer] Unclassified (13 sources) Patient encounter status; Translations: [Screening for breast cancer] Unclassified (2 sources) Ear sensations - finding; Translations: [Ear fullness] Unclassified (3 sources) Onset: 11-25-2023 11-25-2023 NEGATED: Highlighted row has not occurred!Residual codes; unclassified (15 sources) Disease Episodic Results Test Name Value Interpretation Reference Range Facility XR HIPS BILATERAL 5+ VW WITH PELVIS WHEN PERFORMEDon 01-04-2024 XR HIPS BILATERAL 5+ VW WITH PELVIS WHEN PERFORMED Interpreted By: Miguel Potts, STUDY: XR HIPS BILATERAL 5+ VW WITH PELVIS WHEN PERFORMED INDICATION: Signs/Symptoms:bilateral hip pain. COMPARISON: November 04, 2023 ACCESSION NUMBER(S): [id number] ORDERING CLINICIAN: LILIBETH ROMERO FINDINGS: Slight uncovering bilateral femoral heads unchanged suggesting a component of dysplasia. No other osseous, articular, or soft tissue abnormality. IMPRESSION: No acute findings bilateral hips. Signed by: Miguel Potts 01/06/2024 5:33 AM Dictation workstation: [id number] [facility] XR HIPS BILATERAL 3 OR 4 VW WITH PELVIS WHEN PERFORMEDon 11-04-2023 XR HIPS BILATERAL 3 OR 4 VW WITH PELVIS WHEN PERFORMED Interpreted By: Trista Hicks, STUDY: Single view pelvis. Two views right hip. Two views left hip. INDICATION: Signs/Symptoms:Bilateral hip pain. COMPARISON: None. ACCESSION NUMBER(S): [id number] ORDERING CLINICIAN: ODETTE REYNOLDS FINDINGS: No acute fracture or malalignment. Bilateral hip joint spaces are well preserved. Bilateral acetabular dysplasia with lateral uncovering of the femoral heads. Soft tissues are within normal limits. IMPRESSION: 1. Bilateral acetabular dysplasia. 2. No significant degenerative changes or acute radiographic findings of the hips. MACRO: None. Signed by: Trista Hicks 11/06/2023 7:18 AM Dictation workstation: [id number] [facility] Tobacco Screening.on 022 Fall risk assessment a) No falls within the last year -[facility] and Work Phone: Tobacco use status [facility] b) No -[facility] and Work Phone: HCG, Serum - Qualitativeon 0 12-15-2021 HCG ( test) Ql Positive Abnormal Negative -[facility] Work Phone: HCG,SERUM QUALITATIVEon 02- HCG,SERUM QUALITATIVE Positive Abnormal Negative [facility] Comment on above: Performed By: #### HCGS #### [facility] [address] [place] [address] Office Visiton 08-21-2021 Follow-up visit Diagnoses/Problems GERD (gastroesophageal reflux disease) (530.81) (K21.9) Anxiety disorder (300.00) (F41.9) Provider Impressions F/u in 3-4 months, if she decided she wants to increase the lexapro she will call. Chief Complaint 2 week check up, no concerns History of Present IllnessHere for f/u anxiety. She states that she is feeling much better with her stomach symptoms. She is still having a lot of anxiety though. We discussed giving it some more time vs increasing the dose of the lexapro and she would like to give it a little more time. Review of Systems Constitutional: Negative except as documented in history of present illness. Respiratory: Negative except as documented in history of present illness. Cardiovascular: Negative except as documented in history of present illness. Active Problems Anxiety disorder (300.00) (F41.9) GERD (gastroesophageal reflux disease) (530.81) (K21.9) Palpitations (785.1) (R00.2) Patent foramen ovale (745.5) (Q21.1) Screening for breast cancer (V76.10) (Z12.39) Screening for cervical cancer (V76.2) (Z12.4) Women's annual routine gynecological examination (V72.31) (Z01.419) Past Medical History History of Blood in stool (578.1) (K92.1) Resolved Date: 11 Sep 2020 History of Ear fullness (388.8) (H93.8X9) Resolved Date: 11 Sep 2020 History of Menarche (V21.8) AGE 12 History of Vaginal Pap smear (V76.47) (Z12.72) 10/02/2019-NEGATIVE Surgical History History of Esophagogastroduodenoscopy History of [place] tooth extraction Social History Denies alcohol consumption (V49.89) (Z78.9) Does not have living will Never a smoker No caffeine use No illicit drug use Sexually active Allergies No Known Drug Allergies Recorded By: Valarie Guadalupe; 09/07/2019 3:34:55 PM Current Meds Medication NameInstruction Escitalopram Oxalate 10 MG Oral TabletTake 1 tablet daily Famotidine 20 MG Oral Tablet Lansoprazole 30 MG Oral Capsule Delayed ReleaseTAKE 1 CAPSULE BY MOUTH EVERY DAY Vitals Vital Signs Recorded: 21Aug2021 04:39PM Xgfzejwecpv00.3 F Heart Rate66 Itthkbio468 Bmmyxhesc00 Height5 ft 2 in Asmjdz871 lb 2 oz BMI Cnmpcopijq91.26 kg/m2 BSA Calculated1.63 Tobacco Useb) No O2 Wurresyeyr56 Physical Exam General: Alert and oriented, No acute distress. Neurologic: Alert, Oriented, No focal deficits. Psychiatric: Cooperative, Appropriate mood AND affect. Signatures Electronically signed by : Odette Reynolds MD; Aug 22 2021 10:11PM EST (Author) Normal Touchwork s Tobacco Screening.on 021 Tobacco use status [facility] b) No [facility] and Work Phone: Office Visiton 08-06-2021 Follow-up visit Diagnoses/Problems Anxiety disorder (300.00) (F41.9) Orders Anxiety disorder Start: Escitalopram Oxalate 10 MG Oral Tablet; Take 1 tablet daily Provider Impressions Will start lexapro for the anxiety, f/u in 2 weeks, sooner if needed. Chief Complaint anxiety History of Present IllnessHere c/o worsening anxiety. She states that her GERD is worse and her GI specialist suggested that her stress may be contributing to it. She states that she has had some anxiety her whole life, thinks she may have some OCD. SHe has not been on medication for anxiety in the past. She is trying to get in to counselling right now. She states that she really doesn't feel depressed, just finds herself ruminating on things. Review of Systems Constitutional: Negative except as documented in history of present illness. Respiratory: Negative except as documented in history of present illness. Cardiovascular: Negative except as documented in history of present illness. Active Problems GERD (gastroesophageal reflux disease) (530.81) (K21.9) Palpitations (785.1) (R00.2) Patent foramen ovale (745.5) (Q21.1) Screening for breast cancer (V76.10) (Z12.39) Screening for cervical cancer (V76.2) (Z12.4) Women's annual routine gynecological examination (V72.31) (Z01.419) Past Medical History History of Blood in stool (578.1) (K92.1) Resolved Date: 11 Sep 2020 History of Ear fullness (388.8) (H93.8X9) Resolved Date: 11 Sep 2020 History of Menarche (V21.8) AGE 12 History of Vaginal Pap smear (V76.47) (Z12.72) 10/02/2019-NEGATIVE Surgical History History of Esophagogastroduodenoscopy History of [place] tooth extraction Social History Denies alcohol consumption (V49.89) (Z78.9) Does not have living will Never a smoker No caffeine use No illicit drug use Sexually active Allergies No Known Drug Allergies Recorded By: Valarie Guadalupe; 09/07/2019 3:34:55 PM Current Meds Medication NameInstruction Famotidine 20 MG Oral Tablet Lansoprazole 30 MG Oral Capsule Delayed ReleaseTAKE 1 CAPSULE BY MOUTH EVERY DAY Vitals Vital Signs Recorded: 06Aug2021 08:12AM Onnhadggtde54.7 F Heart Rate84 Bmxtuuyb380 Acpyismez64 Height5 ft 2 in Vivlhx737 lb 2 oz BMI Nrvhfwxlpy36.08 kg/m2 BSA Calculated1.63 Tobacco Useb) No O2 Vlqndtpwnt21 Physical Exam General: Alert and oriented, No acute distress. Neurologic: Alert, Oriented, No focal deficits. Psychiatric: Cooperative, Appropriate mood AND affect. Signatures Electronically signed by : Odette Reynolds MD; Aug 06 2021 8:35AM EST (Author) Normal Touchwork s Tobacco Screening.on [address] [facility] b) No -[facility] and Work Phone: NM HEPATOBILIARY W EF AND/OR RXon 01-15-2021 NM HEPATOBILIARY W EF AND/OR RX * * *Final Report* * * DATE OF EXAM: Jan 15 2021 3:49PM ALEX 0021 - NM HEPATOBILIARY W EF AND/OR RX / PROCEDURE REASON: R14.2 ERUCTATION K30 FUNCTIONAL,DYSPEPSIA * * * * Physician Interpretation * * * * HEPATOBILIARY SCAN WITH GALLBLADDER EJECTION FRACTION: CLINICAL HISTORY: Right upper quadrant pain. TECHNIQUE: 5.6 mCi Tc-99m Choletec IV followed by 60 minutes of abdominal imaging This was followed by 1.2 mcg CCK, and additional imaging to calculate a gallbladder ejection fraction FINDINGS: There is prompt and homogeneous uptake by the liver, which appears grossly normal in size and shape. Gallbladder, and proximal small bowel activity are visualized, indicating cystic duct and common bile duct patency. After CCK, the calculated gallbladder ejection fraction is 89% (normal > 35%). IMPRESSION: * Normal gallbladder functional response/EF is not a typical scintigraphic finding of chronic cholecystitis. Clinical correlation is recommended. * Patent CBD. Ship Laborer: PETE Transcribe Date/Time: Jan 15 2021 4:11P Dictated by : NADINE PATEL MD This examination was interpreted and the report reviewed and electronically signed by: NADINE PATEL MD on Jan 15 2021 4:12PM EST [id number] Normal [facility] Otheron 01-15-2021 [facility] PROGRESSon 01-15-2021 PROGRESS HNO ID: [id number] [facility]: [facility] MEGAN Kenny Service: Radiology Author Type: Clinical Marketing Intelligence Manager Type: Progress Notes Filed: 01/15/2021 2:33 PM Note Text: RADIOLOGY SERVICE PROGRESS NOTE SERVICE DATE: 01/15/2021 SERVICE TIME: 2:32 PM PATIENT IDENTITY VERIFICATION COMPLETED USING TWO (2) STANDARD IDENTIFIERS: Name and Date of confirmed by patient verbally and Name and Date of confirmed by identification band FALL SCREENING: Has the patient had 2 falls in the last year or 1 fall with injury or currently using an Ambulatory Assistive Device (Walker, Cane, Wheelchair, Crutches, etc.)? No PATIENT GENDER DATA: .female : No ALLERGIES: Reviewed and unchanged MEDICATIONS REVIEWED: Not applicable PATIENT RELEVANT IMPLANT DATA REVIEWED: Not Applicable CREATININE: No results found for: CREAT, EGFROTH, EGFRAA P.O.C.T. RESULTS: N/A January 15, [address] PERFORMED: No IV SITE: Ambulatory: A peripheral IV was started in the Right antecubital site with a Angio cath: 24 gauge. POST EXAM PIV STATUS: Discontinued PROCEDURE TYPE: NM INJECT: HIDA. 5.6 mCi Tc99m CHOLETEC. CCK 1.24 micrograms intravenous at 15:10. ADMINISTRATION TIME: 14:03 PATIENT DISCHARGED TO: Ambulatory patient, left [place] department area. A Diagnostic radioactive procedure has taken place, with no further precautions necessary other than routine body substance precautions. More information regarding radiation safety can be found using this link: [email or web address] [email or web address] SIGNATURE: Jeannie Kenny [facility] PATIENT NAME: Marques Ruvalcaba DATE: January 15, 2021 TIME: 2:32 PM PAGER/CONTACT #: [facility] DISTRIBUTION AGENT - Office Visiton 11-19 DISTRIBUTION AGENT - Office Visit Provider Impressions Reviewed alternative contraceptive options including diaphragm and Paragard. Pt. is specifically interested in natural family planning and we discussed methods including symptothermal and calendar. Pt. is most interested in using the FDA approved kim associated with the calendar method. We discussed using condoms for the first three months in order to establish a baseline pattern for the kim to use to calculate the fertile window and using condoms or abstaining during the fertile window after that time. Advised starting women's multivitamin with folic acid in case of unintended and reviewed plan to return to office for pre-conception counseling when she does desire . Pt. verbalized understanding. RTO 1 year and PRN Chief Complaint PT IS HERE TODAY FOR HER ANNUAL EXAM. LAST PAP WAS 10/02/19, WNL. HAS NO CONCERNS. LIKE TO DISCUSS B/C OPTIONS. DOES NOT DO A SELF BREAST CHECK. LMP: 12/05/2020 History of Present IllnessPt. presents for annual exam and discuss contraceptive use Normal pap last year right before she was , pt. also started OCP at that time. Pt. has no complaints today but wants to discuss contraceptive options.Reviewed guidelines for breast and pelvic exams and pt. declines these today. She does not desire at this time, but states she would not be devastated if it occurred. Pt. is concerned that OCP is affecting her mental health and she is also experiencing a jew conflict with taking it. Pt. asks to know more about fertility awareness methods. States her cycles were roughly 28 days long prior to using OCP Review of Systems Constitutional: no fever and no chills. Respiratory: no shortness of breath. Active Problems Problems GERD (gastroesophageal reflux disease) (530.81) (K21.9) Palpitations (785.1) (R00.2) Patent foramen ovale (745.5) (Q21.1) Screening for breast cancer (V76.10) (Z12.39) Screening for cervical cancer (V76.2) (Z12.4) Women's annual routine gynecological examination (V72.31) (Z01.419) Past Medical History Problems History of Blood in stool (578.1) (K92.1) Resolved Date: 11 Sep 2020 History of Ear fullness (388.8) (H93.8X9) Resolved Date: 11 Sep 2020 History of Menarche (V21.8) AGE 12 History of Vaginal Pap smear (V76.47) (Z12.72) 10/02/2019-NEGATIVE Surgical History Problems History of Esophagogastroduodenoscopy History of [place] tooth extraction Family History Father Family history of gastroesophageal reflux disease (V18.59) (Z83.79) Family history of hypertension (V17.49) (Z82.49) Social History Problems Denies alcohol consumption (V49.89) (Z78.9) Does not have living will Never a smoker No caffeine use No illicit drug use Sexually active Allergies Medication No Known Drug Allergies Recorded By: Valarie Guadalupe; 09/07/2019 3:34:55 PM Current Meds Medication NameInstruction Lansoprazole 30 MG Oral Capsule Delayed ReleaseTAKE 1 CAPSULE BY MOUTH EVERY DAY Norgestim-Eth Estrad Triphasic 0.18/0.215/0.25 MG-25 MCG Oral TabletTAKE 1 TABLET BY MOUTH EVERY DAY Vitals Vital Signs Recorded: [id number] 03:17PM Geqhaydvwso52.7 F Hpulqszx877 Qjylwgmuc89 Height5 ft 2 in Gxrwjv144 lb 11.52 oz BMI Rdwywhywdv80.28 BSA Calculated1.61 [id number] Physical Exam Constitutional: Alert and in no acute distress. Well developed, well nourished Pulmonary: No respiratory distress Psychiatric: alert and oriented x 3., affect normal to patient baseline, mood: appropriate and judgment and insight: intact Signatures Electronically signed by : Malaika Desouza, DOPEMAN-CNM DOPEMAN-BIOINFORMATICIST; Dec 10 2020 3:49PM EST (Author) Normal Touchworks US GALLBLADDER RUQon 020 US GALLBLADDER RUQ US GALLBLADDER RUQ CLINICAL HISTORY:R14.2 Eructation ICD10 COMPARISONS: NONE FINDINGS: TECHNIQUE: TRANSABDOMINAL ULTRASOUND OF THE RIGHT UPPER QUADRANT WAS PERFORMED. The liver shows no focal parenchymal abnormalities. No intrahepatic biliary dilatation. The gallbladder shows no pericholecystic fluid. The gallbladder wall is not thickened. It measures 1.1 millimeters. No sludge or stones. Common bile duct measures 4.4 millimeters. Visualized portions of the pancreas are unremarkable IMPRESSION: UNREMARKABLE SONOGRAPHIC EXAMINATION OF THE LIVER AND GALLBLADDER. Interpreted by: Wali Gandhi MD Signed by: Wali Gandhi MD 09/26/20 Final result Normal [facility] UNREMARKABLE SONOGRA PHIC EXAMINATION OF THE LIVER AND GALLBLADDER. [place], [place] US GALLBLADDER RUQ C LINICAL HISTORY:R14.2 Eructation ICD10 COMPARISONS: NONE FINDINGS: TECHNIQUE: TRANSABDOMINAL ULTRASOUND OF THE RIGHT UPPER QUADRANT WAS PERFORMED. The liver shows no focal parenchymal abnormalities. No intrahepatic biliary dilatation. The gallbladder shows no pericholecystic fluid. The gallbladder wall is not thickened. It measures 1.1 millimeters. No sludge or stones. Common bile duct measures 4.4 millimeters. Visualized portions of the pancreas are unremarkable [place], [place] Darron, Chpo Incoming R adiant Results From [email or web address] - 09/26/2020 9:23 AM EST US GALLBLADDER RUQ CLINICAL HISTORY:R14.2 Eructation ICD10 COMPARISONS: NONE FINDINGS: TECHNIQUE: TRANSABDOMINAL ULTRASOUND OF THE RIGHT UPPER QUADRANT WAS PERFORMED. The liver shows no focal parenchymal abnormalities. No intrahepatic biliary dilatation. The gallbladder shows no pericholecystic fluid. The gallbladder wall is not thickened. It measures 1.1 millimeters. No sludge or stones. Common bile duct measures 4.4 millimeters. Visualized portions of the pancreas are unremarkable IMPRESSION: UNREMARKABLE SONOGRAPHIC EXAMINATION OF THE LIVER AND GALLBLADDER. [place], [place] Office Visit (Cardiology)on 09-19-2020 Follow-up visit Diagnoses/Problems Assessed Palpitations (785.1) (R00.2) Patent foramen ovale (745.5) (Q21.1) Orders Patent foramen ovale IO EKG Electrocardiogram- 12 Lead; Status:Complete; Done: 38Cot4440 08:55AM Chief Complaint Patent foramen ovale. States she has occasional palpitations. History of Present Pzbqixv11-ldpj-zry white female with no significant cardiac history here for evaluation of a patent foramen ovale seen on echocardiogram dated 08/22/2020: #1.patent foramen ovale -Patient currently denies any chest pain/shortness of breath/orthopnea/PND/leg swelling -Denies any stroke-like symptoms Problem #2 palpitations. -Patient knows that she has been having hesitations almost every day for the past 3 months. -She says that she can almost always feel it if she pays attention Active Problems Problems GERD (gastroesophageal reflux disease) (530.81) (K21.9) Palpitations (785.1) (R00.2) Patent foramen ovale (745.5) (Q21.1) Screening for breast cancer (V76.10) (Z12.39) Screening for cervical cancer (V76.2) (Z12.4) Women's annual routine gynecological examination (V72.31) (Z01.419) Surgical History Problems History of Esophagogastroduodenoscopy History of [place] tooth extraction Past Medical History Problems History of Blood in stool (578.1) (K92.1) Resolved Date: 11 Sep 2020 History of Ear fullness (388.8) (H93.8X9) Resolved Date: 11 Sep 2020 History of Menarche (V21.8) AGE 12 History of Vaginal Pap smear (V76.47) (Z12.72) 10/02/2019-NEGATIVE Current Meds Medication NameInstruction Fluticasone Propionate 50 MCG/ACT Nasal SuspensionSPRAY 2 SPRAY Daily in each nostril Norgestim-Eth Estrad Triphasic 0.18/0.215/0.25 MG-25 MCG Oral TabletTAKE 1 TABLET DAILY. Omeprazole CPDR Allergies Medication No Known Drug Allergies Recorded By: Valarie Guadalupe; 09/07/2019 3:34:55 PM Family History Father Family history of gastroesophageal reflux disease (V18.59) (Z83.79) Family history of hypertension (V17.49) (Z82.49) Social History Problems Denies alcohol consumption (V49.89) (Z78.9) Does not have living will Never a smoker No caffeine use No illicit drug use Not currently sexually active Review of Systems Constitutional: no fever and no chills. Eyes: no eye pain and no purulent discharge from the eyes. ENT: no earache and no sore throat. Cardiovascular: no chest pain and no tightness or heavy pressure. Gastrointestinal: no constipation and no nausea. Genitourinary: no dysuria and no incontinence. Musculoskeletal: no joint swelling and no joint stiffness. Neurological: no dizziness and no tingling. Psychiatric: no memory lapses or loss and no anxiety. Endocrine: no excessive thirst and no dry skin. Vitals Vital Signs Recorded: 22Nxv6401 09:02AM Glnunaypgoa09.3 F Heart Rate86 Pbdlxccs359, RUE Tofxnaryd01, RUE Height5 ft 2 in Cvvmyu751 lb 2 oz BMI Kczvvyulin36.35 BSA Calculated1.61 O2 Vvozgwyelf69 Physical Exam General: AANDOx3 HEENT: NC/AT; EOMI; PERRLA Neck: supple; no JVD Chest: CTAB; no wheezing CVS: S1S2 normal, no murmurs Abdomen: Soft, NT/ND, no organomegaly Extremities: no clubbing/cyanosis/edema Neuro: Grossly intact Results/Data Milpvmczdnpjff41Taa1689 07:55AMOdette Reynolds [Sep 04, 2020 8:49PM Odette Reynolds] appt 09/11 [Aug 21, 2020 11:10AM [facility] AMA Intake Activity Log Entry by Bella Fuentes ([email or web address]) on 08/21/2020 11:05 AM Status Change: To Confirmed - N/A [Aug 21, 2020 11:10AM [facility], [facility] AMA Intake updated by Bella Fuentes ([email or web address]) on 08/21/2020 11:05 AM New Appointment Date: 08/22/2020 7:00 AM [Aug 21, 2020 11:05AM [facility] AMA Intake Activity Log Entry by Bella Fuentes ([email or web address]) on 08/21/2020 11:04 AM Status Change: To Scheduling in Process - First Call, called pt to schedule her echo Test NameResultFlagReference Echocardiogram(Report) [id number] [place] [address] ext-2528, TRANSTHORACIC ECHOCARDIOGRAM REPORT Patient Name: MARQUES Barger Reading Physician: [id number] Leela Carrero MD PEG Study Date: 08/22/2020 Referring Physician: [id number] Odette Reynolds MD MRN/PID: [id number] PCP: Accession/Order#: [id number] Department Location: [facility] Echo Lab Date of : 1995 Fellow: Gender: F Nurse: Admit Date: Institution Director: LEFTY Joyce RVT Admission Status: Outpatient Additional Staff: Height: 157.48 cm CC Report to: Weight: 58.97 kg Study Type: Echocardiogram BSA: 1.59 m2 Blood Pressure: 110 /76 mmHg Diagnosis/ICD: R00.2-Palpitations Indication: Palps Procedure/CPT: Echo Complete w Full Doppler-49594 Patient History: Pertinent History: No previous echo done. Study Detail: The following Echo studies were performed: 2D, M-Mode, Doppler and color flow. Agitated saline used as a contrast agent for intraseptal flow evaluation. The patient was awake. PHYSICIAN INTERPRETATIO (more content not included)... Normal [facility] Office Visiton 09-11-2020 Follow-up visit Chief Complaint Reviewing Echo results today History of Present IllnessHere to go over recent testing. She states that overall she is feeling ok, still has some occasional palpitations. Her Holter was ok, but her ECHO did show moderate patent foramen ovale so we will refer to cardiology for evaluation of that. Review of Systems Constitutional: Negative except as documented in history of present illness. Respiratory: Negative except as documented in history of present illness. Cardiovascular: Negative except as documented in history of present illness. Active Problems GERD (gastroesophageal reflux disease) (530.81) (K21.9) Palpitations (785.1) (R00.2) Screening for breast cancer (V76.10) (Z12.39) Screening for cervical cancer (V76.2) (Z12.4) Women's annual routine gynecological examination (V72.31) (Z01.419) Past Medical History History of Blood in stool (578.1) (K92.1) History of Ear fullness (388.8) (H93.8X9) History of Menarche (V21.8) AGE 12 History of Vaginal Pap smear (V76.47) (Z12.72) 10/02/2019-NEGATIVE Surgical History History of Esophagogastroduodenoscopy History of [place] tooth extraction Social History Denies alcohol consumption (V49.89) (Z78.9) Does not have living will Never a smoker No caffeine use No illicit drug use Not currently sexually active Allergies No Known Drug Allergies Recorded By: Valarie Guadalupe; 09/07/2019 3:34:55 PM Current Meds Fluticasone Propionate 50 MCG/ACT Nasal Suspension; SPRAY 2 SPRAY Daily in each nostril; Therapy: 21Aug2020 to (Last Rx:21Aug2020) Requested for: 21Aug2020 Ordered Rx By: Odette Reynolds; Dispense: 0 Days ; #:1 X 16 GM Bottle; Refill: 11;For: PMH: Ear fullness; LAURIE = N; Verified Transmission to [facility] [address]; Last Updated By: [employer]; 08/21/2020 8:56:42 AM Norgestim-Eth Estrad Triphasic 0.18/0.215/0.25 MG-25 MCG Oral Tablet; TAKE 1 TABLET DAILY; Therapy: 84Qvp1414 to (Evaluate:02Sep2020) Requested for: 14Ogi6949; Last Rx:02Oct2019 Ordered Rx By: Sidra Ross; Dispense: 28 Days ; #:1 X 28 Tablet Pack; Refill: 11;For: Women's annual routine gynecological examination; LAURIE = N; Verified Transmission to [employer] [facility]; Last Updated By: [employer] Author[employer]; 10/02/2019 5:08:04 PM Omeprazole CPDR; Therapy: (Recorded:66Mcl7893) to Recorded Dispense: 0 Days ; #: Sufficient; Refill: 0; LAURIE = N; Record; Last Updated By: Angie Vidales; 10/02/2019 3:05:15 PM Vitals Vital Signs Recorded: 11Sep2020 08:37AM Apyonapwtza43.9 F Heart Zxsb885 Smtwujxv326 Euwvwfgyt37 Height5 ft 2 in Slfswv799 lb 1 oz BMI Unjzrizgzi09.15 BSA Calculated1.6 Tobacco Useb) No Physical Exam General: Alert and oriented, No acute distress. Respiratory: Respirations are non-labored. Neurologic: Alert, Oriented. Psychiatric: Cooperative, Appropriate mood AND affect. Results/Data Hjtpmwlarxdegu60Pmt2118 07:55AMOdette Reynolds [Sep 04, 2020 8:49PM Odette Reynolds] appt 09/11 [Aug 21, 2020 11:10AM AMA, [facility]] AMA Intake Activity Log Entry by Bella Fuentes ([email or web address]) on 08/21/2020 11:05 AM Status Change: To Confirmed - N/A [Aug 21, 2020 11:10AM AMA, [facility]] AMA Intake updated by Bella Fuentes ([email or web address]) on 08/21/2020 11:05 AM New Appointment Date: 08/22/2020 7:00 AM [Aug 21, 2020 11:05AM [facility] AMA Intake Activity Log Entry by Bella Fuentes ([email or web address]) on 08/21/2020 11:04 AM Status Change: To Scheduling in Process - First Call, called pt to schedule her echo Test NameResultFlagReference Echocardiogram(Report) [id number] [place] [address] ext-2528, TRANSTHORACIC ECHOCARDIOGRAM REPORT Patient Name: MARQUES Davenport Physician: [id number] Leela Carrero MD PEG Study Date: 08/22/2020 Referring Physician: [id number] Odette Reynolds MD MRN/PID: [id number] PCP: Accession/Order#: [id number] Department Location: [facility] Echo Lab Date of : 1995 Fellow: Gender: F Nurse: Admit Date: Institution Director: LEFTY Joyce RVT Admission Status: Outpatient Additional Staff: Height: 157.48 cm CC Report to: Weight: 58.97 kg Study Type: Echocardiogram BSA: 1.59 m2 Blood Pressure: 110 /76 mmHg Diagnosis/ICD: R00.2-Palpitations Indication: Palps Procedure/CPT: Echo Complete w Full Doppler-42402 Patient History: Pertinent History: No previous echo done. Study Detail: The following Echo studies were performed: 2D, M-Mode, Doppler and color flow. Agitated saline used as a contrast agent for intraseptal flow evaluation. The patient was awake. PHYSICIAN INTERPRETATION: Left Ventricle: The left ventricular systolic function is normal, with an estimated ejection fraction of 55-60%. There are no regional wall motion abnormalities. The left ventricular cavity size is normal. Spectral Doppler shows a normal pattern of left ventricular diastolic filling. Left Atrium: The left atrium is normal in size. There is a moderately (more content not included)... Normal [facility] Narrative Note - Outpatient- CPS for bubbleson 08-22-2020 Narrative Note - Outpatient-CPS for bubbles Narrative Note: Discipline/ClinicCPS for bubbles Description Was called to CPS department to give Bubbles. Started a 22g IV in the left AC. Flushed the IV with normal saline. Then the ophthalmic medical technologist instructed to give 2 rounds of Bubbles. Exam completed and IV flushed with normal saline and d/c. Band aide applied to IV location. Electronic Signatures: Rodger Mir (RN) (Signed 22-Aug-2020 07:59) Authored: Narrative Note - OP Last Updated: 22-Aug-2020 07:59 by Rodger Mir ([email or web address]) [facility] Otheron 11-21-2019 Name MARQUES CHAUHAN Pathologist: TIMO BARON M.D., PhD.Date of Procedure: 11/21/2019Date Received: 11/21/2019Date Reported 11/22/2019Submitting Physician: LUCAS GARDNERocation: [facility] Copy To/Referring/Attending:SILVIA SCHIMD DO Other External # FINAL DIAGNOSISA. ANTRUM, BIOPSY:--REACTIVE GASTROPATHY.--NEGATIVE FOR HELICOBACTER PYLORI. B. DUODENUM, BIOPSY:--DUODENAL MUCOSA WITH NO SIGNIFICANT PATHOLOGIC FINDINGS. C. ESOPHAGUS, BIOPSY:--SQUAMOCOLUMNAR JUNCTION WITH NO SIGNIFICANT PATHOLOGIC FINDINGS. The gross and/or microscopic findings were reviewed in conjunction withpathology resident, Daisy Lentz DO. Electronically Signed Out By TIMO BARON M.D., PhD./Alecia the signature on this report, the individual or group listed as making theFinal Interpretation/Diagnosis certifies that they have reviewed this case. Clinical History:Physician Contact Number: [id number] (A): FormalinFixative (B): FormalinFixative (C): FormalinClinical Diagnosis History GERDSpecimens Submitted As:A: ANTRAL BX B: DUODENAL BX C: ESOPHAGEAL BX Gross Description:A: Received in formalin, labeled with the patient's name and hospital numberand antral biopsy , are 2 fragments of jackson, soft tissue aggregating to 0.7 x0.2 x 0.1 cm. The specimen is submitted in toto in one cassette.DPGB: Received in formalin, labeled with the patient's name and hospital numberand duodenal biopsy , are 2 fragments of jackson, soft tissue aggregating to 0.3 x0.2 x 0.1 cm. The specimen is submitted in toto in one cassette.DPGC: Received in formalin, labeled with the patient's name and hospital numberand esophagus biopsy , are 2 fragments of jackson, soft tissue aggregating to 0.6x 0.2 x 0.1 cm. The specimen is submitted in toto in one cassette.DPGdpg/11/21/2019 [place] [address] Work Phone: Patient Name: Marques Smith Date: 11/21/2019 7:17 AMMRN: [id number] Number: [id number] of : 1995Admit Type: OutpatientSite[facility]Ethnicity: Not or LatinoRace: Cindy MD: Silvia Schmid DOProcedure: Upper GI endoscopyIndications: Functional DyspepsiaProviders: Silvia Schmid DO (Doctor), Smueet Sandra RN (Nurse), Hilaria Dela Cruz, TechnicianReferring: Silvia Schmid DOMedicines: Fentanyl 100 micrograms IV, Midazolam 5 mg IV, Diphenhydramine 25 mg IVComplications: No immediate complications.Procedure: Pre-Anesthesia Assessment: - Prior to the procedure, a History and Physical was performed, and patient medications and allergies were reviewed. The patient is competent. The risks and benefits of the procedure and the sedation options and risks were discussed with the patient. All questions were answered and informed consent was obtained. Patient identification and proposed procedure were verified by the physician in the pre-procedure area. Mental Status Examination: alert and oriented. Airway Examination: normal oropharyngeal airway and neck mobility. Respiratory Examination: clear to auscultation. CV Examination: normal. Prophylactic Antibiotics: The patient does not require prophylactic antibiotics. Prior Anticoagulants: The patient has taken no previous anticoagulant or antiplatelet agents. ASA Grade Assessment: II - A patient with mild systemic disease. After reviewing the risks and benefits, the patient was deemed in satisfactory condition to undergo the procedure. The anesthesia plan was to use moderate sedation / analgesia (conscious sedation). Immediately prior to administration of medications, the patient was re-assessed for adequacy to receive sedatives. The heart rate, respiratory rate, oxygen saturations, blood pressure, adequacy of pulmonary ventilation, and response to care were monitored throughout the procedure. The physical status of the patient was re-assessed after the procedure. After obtaining informed consent, the endoscope was passed under direct vision. Throughout the procedure, the patient's blood pressure, pulse, and oxygen saturations were monitored continuously. The endoscope was introduced through the mouth, and advanced to the third part of duodenum. The upper GI endoscopy was accomplished without difficulty. The patient tolerated the procedure well.Findings: The nasopharynx was normal. LA Grade A (one or more mucosal breaks less than 5 mm, not extending between tops of 2 mucosal folds) esophagitis with no bleeding was found 38 cm from the incisors. Biopsies were taken with a cold forceps for histology. Diffuse moderately erythematous mucosa without bleeding was found in the prepyloric region of the stomach. Biopsies were taken with a cold forceps for histology. The examined duodenum was normal. Biopsies for histology were taken with a cold forceps for evaluation of celiac disease.Moderate Sedation: Moderate (conscious) sedation was administered by the endoscopy nurse and supervised by the endoscopist. The patient's oxygen saturation, heart rate, blood pressure and response to care were monitored. Total physician intraservice time was 11 minutes.Estimated Blood Loss: Estimated blood loss: none.Impression: - Normal nasopharynx. - LA Grade A reflux esophagitis. Biopsied. - Erythematous mucosa in the prepyloric region of the stomach. Biopsied. - Normal examined duodenum. Biopsied.Recommendation: - Patient has a contact number available for emergencies. The signs and symptoms of potential delayed complications were discussed with the patient. Return to normal activities tomorrow. Written discharge instructions were provided to the patient. - Resume previous diet. - Continue present medications. - Await pathology results. - Return to my office as previously scheduled.Procedure Code(s): --- Professional --- 08770, Esophagogastroduodenoscopy, flexible, transoral; with biopsy, single or multiple G0500, Moderate sedation services provided by the same physician or other qualified health sub acute care nurse performing a gastrointestinal endoscopic service that sedation supports, requiring the presence of an independent trained observer to assist in the monitoring of the patient's level of consciousness and physiological status; initial 15 minutes of intra-service time; patient age 5 years or older (additional time may be reported with 02680, as appropriate)Diagnosis Code(s): --- Professional --- K21.0, Gastro-esophageal reflux disease with esophagitis K31.89, Other diseases of stomach and duodenum K30, Functional dyspepsiaCPT copyright 2017 [employer]. All rights reserved.The codes documented in this report are preliminary and upon automotive upholsterer review may be revised to meet current compliance requirements.Attending Participation: I personally performed the entire procedure.Silvia Schmid, DO11/21/2019 8:08:13 AMThis report has been signed electronically.Number of Addenda: 0Note Initiated On: 11/21/2019 7:17 AMScope Withdrawal Time 0 hours 0 minutes 29 seconds Total Procedure Duration Time 0 hours 4 minutes 50 seconds [facility] Work Phone: [email or web address]} [facility] 120 Work Phone: Imm/Pathon 10-02-2019 Cytology report Cyto stain.thin prep Doc (Cvx/Vag) [address] Work Phone: Otheron 10-02-2019 49 Date of Procedure: 10/02/2019 Pathologist: [facility], CytologyDate Reported: 10/12/2019Date Received: 10/03/2019Submitting Physician: SIDRA ROSS DO FINAL CYTOLOGICAL INTERPRETATIONA. THINPREP PAP CERVICAL Reflex - Ascus only: Specimen adequacy: SATISFACTORY FOR EVALUATION. Quality Indicator: Endocervical/transformation zone component is present. Quality Indicator: Partially obscuring inflammation. General Categorization: NEGATIVE FOR INTRAEPITHELIAL LESION OR MALIGNANCY. Ancillary Testing: Specimen does not meet the requisition-stated criteria for HPV testing.See Pap test interpretation above. This specimen has been analyzed by the [employer] System ([employer]an automated imaging and review system, which assists the laboratory inevaluating cells on ThinPrep Pap tests. Following automated imaging, selectedfields from every slide were reviewed by a structural biologist and/or pathologist.Electronically Signed Out By [facility], Cytology//NCK By the signature on this report, the individual or group listed as making theFinal Interpretation/Diagnosis certifies that they have reviewed this case.Educational Note:Cervical cytology is a screening procedure primarily for squamous cancers andprecursors and has associated false-negative and false-positive results asevidenced by published data. Your patient's test should be interpreted in thiscontext, together with patient's history and clinical findings. Regularsampling and follow-up of unexplained clinical signs and symptoms arerecommended to minimize false negative results. Clinical HistoryDate of Last Menstrual Period: 10/05Other Clinical Conditions:HPV Reflex for ASC-US only - Include HPV Genotype Source of SpecimenA: THINPREP PAP CERVICAL Reflex - Ascus only [facility]-[address] Work Phone: XR Esophaguson 03-07-2019 XR Esophagus Exam Date/Time: 03/07/2019 08:28 EDT Reason for Exam: ESOPHAGEAL SPASM CHRONIC GERD;Esophageal spasm Report STUDY: XR Esophagus; 03/07/2019 8:28 am INDICATION: Esophageal spasm. COMPARISON: None. ACCESSION NUMBER(S): [id number] ORDERING CLINICIAN: Silvia Schmid TECHNIQUE: Initial pump technician radiograph of the esophagus was obtained. Multiple fluoroscopic spot images were obtained after the administration of effervescent crystals and 150 mL of barium contrast. The patient tolerated the procedure well. Fluoroscopic time was 2.0 minutes. FINDINGS: Initial pump technician image is unremarkable Fluoroscopic images demonstrate normal peristalsis with free flow of barium through the pharynx and esophagus without evidence of obstruction or stricture. There is no evidence of extraluminal contrast suggestive of leak. No intraluminal mass lesions or hiatal hernia is appreciated. There is no evidence of extrinsic compression of the esophagus or pharynx. The gastroesophageal junction is grossly unremarkable. Note is made of mild gastroesophageal reflux during the examination. IMPRESSION: 1. Mild gastroesophageal reflux noted during examination. 2. Otherwise unremarkable barium esophagram, as above. FINAL REPORT Dictated: 03/07/2019 8:43 am Loc Arteaga MD Signed (Electronic Signature): 03/07/2019 8:43 am Signed by: Loc Arteaga MD Technologist: [facility] Vital Signs Date Time Vital Sign Value Performing Clinician Facility 11-08-2023 08:33-0500 Body height 157.5 cm Odette Reynolds MD Work Phone: [facility] 11-08-2023 08:33-0500 Body mass index (BMI) [Ratio] 33.38 kg/m2 Odette Reynolds MD Work Phone: [facility] 11-08-2023 08:33-0500 Body weight 82.78 kg Odette Reynolds MD Work Phone: [facility] 11-08-2023 08:33-0500 Diastolic blood pressure 80 mm[Hg] Odette Reynolds MD Work Phone: [facility] 11-08-2023 08:33-0500 Heart rate 77 /min Odette Reynolds MD Work Phone: [facility] 11-08-2023 08:33-0500 SaO2% (BldA) [Mass fraction] 98 % Odette Reynolds MD Work Phone: [facility] 11-08-2023 08:33-0500 Systolic blood pressure 118 mm[Hg] Odette Reynolds MD Work Phone: [facility] 02-16-2023 14:29-0400 Body height 157.5 cm Odette Reynolds MD Work Phone: [facility] 02-16-2023 14:29-0400 Body mass index (BMI) [Ratio] 31.5 kg/m2 Odette Reynolds MD Work Phone: [facility] 02-16-2023 14:29-0400 Body weight 78.11 kg Odette Reynolds MD Work Phone: [facility] 02-16-2023 14:29-0400 Diastolic blood pressure 76 mm[Hg] Odette Reynolds MD Work Phone: [facility] 02-16-2023 14:29-0400 Heart rate 81 /min Odette Reynolds MD Work Phone: [facility] 02-16-2023 14:29-0400 SaO2% (BldA) [Mass fraction] 99 % Odette Reynolds MD Work Phone: [facility] 02-16-2023 14:29-0400 Systolic blood pressure 116 mm[Hg] Odette Reynolds MD Work Phone: [facility] 07-14-2022 16:04-0400 Body height 157.48 cm Odette Reynolds Work Phone: [facility] Work Phone: 07-14-2022 16:04-0400 Body mass index (BMI) [Ratio] 31.28 kg/m2 Odette Reynolds Work Phone: [facility] Work Phone: 07-14-2022 16:04-0400 Body surface area Derived from formula 1.79 m2 Odette Reynolds Work Phone: [facility] Work Phone: 07-14-2022 16:04-0400 Body weight 77.57 kg Odette Reynolds Work Phone: [facility] Work Phone: 07-14-2022 16:04-0400 Diastolic blood pressure 72 mm[Hg] Odette Reynolds Work Phone: [facility] Work Phone: 07-14-2022 16:04-0400 Heart rate 86 /min Odette Reynolds Work Phone: [facility] Work Phone: 07-14-2022 16:04-0400 SaO2% (BldA) [Mass fraction] 98 % Odette Reynolds Work Phone: [facility] Work Phone: 07-14-2022 16:04-0400 Systolic blood pressure 110 mm[Hg] Odette Reynolds Work Phone: [facility] Work Phone: 08-21-2021 16:39-0400 Body height 157.48 cm Odette Reynolds Work Phone: [facility] Work Phone: 08-21-2021 16:39-0400 Body mass index (BMI) [Ratio] 25.26 kg/m2 Odette Reynolds Work Phone: [facility] Work Phone: 08-21-2021 16:39-0400 Body surface area Derived from formula 1.63 m2 Odette Reynolds Work Phone: [facility] Work Phone: 08-21-2021 16:39-0400 Body temperature 97.3 [degF] Odette Reynolds Work Phone: [facility] Work Phone: 08-21-2021 16:39-0400 Body weight 62.66 kg Odette Reynolds Work Phone: [facility] Work Phone: 08-21-2021 16:39-0400 Diastolic blood pressure 78 mm[Hg] Odette Reynolds Work Phone: [facility] Work Phone: 08-21-2021 16:39-0400 Heart rate 66 /min Odette Reynolds Work Phone: [facility] Work Phone: 08-21-2021 16:39-0400 SaO2% (BldA) [Mass fraction] 99 % Odette Reynolds Work Phone: [facility] Work Phone: 08-21-2021 16:39-0400 Systolic blood pressure 110 mm[Hg] Odette Reynolds Work Phone: [facility] Work Phone: 08-06-2021 08:12-0400 Body height 157.48 cm Odette Reynolds Work Phone: [facility] Work Phone: 08-06-2021 08:12-0400 Body mass index (BMI) [Ratio] 25.08 kg/m2 Odette Reynolds Work Phone: [facility] Work Phone: 08-06-2021 08:12-0400 Body surface area Derived from formula 1.63 m2 Odette Reynolds Work Phone: [facility] Work Phone: 08-06-2021 08:12-0400 Body temperature 97.7 [degF] Odette Reynolds Work Phone: [facility] Work Phone: 08-06-2021 08:12-0400 Body weight 62.2 kg Odette Reynolds Work Phone: [facility] Work Phone: 08-06-2021 08:12-0400 Diastolic blood pressure 70 mm[Hg] [facility] Work Phone: [facility] Work Phone: 08-06-2021 08:12-0400 Heart rate 84 /min Odette Reynolds Work Phone: [facility] Work Phone: 08-06-2021 08:12-0400 SaO2% (BldA) [Mass fraction] 99 % Odette Reynolds Work Phone: [facility] Work Phone: 08-06-2021 08:12-0400 Systolic blood pressure 120 mm[Hg] Odette Reynolds Work Phone: [facility] Work Phone: 09-19-2020 11:02-0500 BMI (Body Mass Index) 24.35 kg/m2 [facility] [address] Work Phone: 09-19-2020 11:02-0500 Body Temperature 97.3 [degF] [facility] [address] Work Phone: 09-19-2020 11:02-0500 Body weight 60.39 [facility] [address] Work Phone: 09-19-2020 11:02-0500 BP Diastolic 82 mm[Hg] [facility] [address] Work Phone: Comment on above: Location: [facility]; 09-19-2020 11:02-0500 BP Systolic 124 mm[Hg] Sidra Perez-[place] [address] Work Phone: Comment on above: Location: [facility]; 09-19-2020 11:02-0500 BSA (Body Surface Area) 1.61 m2 Sidra Ross [facility] [address] Work Phone: 09-19-2020 11:02-0500 Height 157.48 cm Sidra Ross [facility] [address] Work Phone: 09-19-2020 11:02-0500 Pulse (Heart Rate) 86 /min Sidra Ross [facility] [address] Work Phone: 09-19-2020 11:02-0500 Pulse Oximetry 99 % Sidra Ross [facility] [facility] [address] Work Phone: 08-21-2020 10:33-0500 BMI (Body Mass Index) 24.04 kg/m2 [facility] Work Phone: 08-21-2020 10:33-0500 Body Temperature 97.3 [degF] [facility]: 08-21-2020 10:33-0500 Body weight 59.62 kg [facility] Work Phone: 08-21-2020 10:33-0500 BP Diastolic 82 mm[Hg] [facility] Work Phone: 08-21-2020 10:33-0500 BP Systolic 114 mm[Hg] Sidra [facility] Work Phone: 08-21-2020 10:33-0500 BSA (Body Surface Area) 1.6 m2 Sidra [facility] Work Phone: 08-21-2020 10:33-0500 Height 157.48 cm Sidra [facility] Work Phone: 08-21-2020 10:33-0500 Pulse (Heart Rate) 82 /min [facility] Work Phone: 10-02-2019 17:13-0500 BMI (Body Mass Index) 23.15 kg/m2 [facility] [address] Work Phone: 10-02-2019 17:13-0500 Body weight 57.4 kg [facility] [address] Work Phone: 10-02-2019 17:13-0500 BP Diastolic 68 mm[Hg] [facility] [address] Work Phone: 10-02-2019 17:13-0500 BP Systolic 102 mm[Hg] [facility] [address] Work Phone: 10-02-2019 17:13-0500 BSA (Body Surface Area) 1.57 m2 [facility] [address] Work Phone: 10-02-2019 17:13-0500 Height 157.48 cm [facility] [address] Work Phone: 09-07-2019 17:31-0500 BMI (Body Mass Index) 22.86 kg/m2 Silvia Schmid [facility] 120 Work Phone: 09-07-2019 17:31-0500 Body weight 56.7 kg Silvia Schmid [facility] 120 Work Phone: 09-07-2019 17:31-0500 BP Diastolic 74 mm[Hg] Silvia Schmid [facility] 120 Work Phone: 09-07-2019 17:31-0500 BP Systolic 110 mm[Hg] Silvia Schmid [facility] 120 Work Phone: 09-07-2019 17:31-0500 BSA (Body Surface Area) 1.57 m2 Silvia Schmid [facility] 120 Work Phone: 09-07-2019 17:31-0500 Height 157.48 cm Silvia Schmid [facility] 120 Work Phone: Encounters Encounter Date Encounter Type Care Provider Facility Start: 01-04-2024 End: 01-05-2024 ambulatory LILIBETH ROMERO [facility] Start: 01-04-2024 End: 01-04-2024 Office outpatient new 45 minutes Lilibeth Romero MD Work Phone: [facility] Comment on above: Bilateral hip pain Start: 01-04-2024 End: 01-04-2024 Subsequent hospital visit by physician Sarah Ross110 X-Ray 1 [facility] Comment on above: Bilateral hip pain Start: 12-29-2023 End: 12-29-2023 ambulatory DANIKA M [facility] Start: 12-22-2023 End: 12-22-2023 ambulatory [facility] Start: 12-16-2023 End: 12-16-2023 ambulatory DANIKA M [facility] Start: 11-25-2023 End: 11-25-2023 ambulatory DANIKA M [facility] Start: 11-11-2023 End: 11-11-2023 ambulatory [facility] Start: 11-11-2023 End: 11-11-2023 Office outpatient new 45 minutes Danika Andrade DOPEMAN-BIOINFORMATICIST Work Phone: [facility] Comment on above: Bilateral hip pain; Acetabular dysplasia Start: 11-08-2023 End: 11-08-2023 ambulatory ODETTE A [facility]ulatory Start: 11-08-2023 End: 11-08-2023 Office outpatient visit 25 minutes Odette Reynolds MD Work Phone: [facility] Comment on above: Generalized anxiety disorder (Primary Dx); Bilateral hip pain; Acetabular dysplasia; Gastroesophageal reflux disease, unspecified whether esophagitis present Start: 11-04-2023 End: 11-04-2023 Subsequent hospital visit by physician Kobi X-Ray 1 [facility] Comment on above: Pain in right hip; Pain in left hip Start: 11-04-2023 End: 11-04-2023 ambulatory ODETTE Madrigal [facility] Start: 02-16-2023 End: 02-16-2023 ambulatory ODETTE Madrigal [facility] Start: 02-16-2023 End: 02-16-2023 Office outpatient visit 15 minutes Odette Reynolds MD Work Phone: [facility] Comment on above: Bilateral hip pain ( Primary Dx); Generalized anxiety disorder Start: 07-14-2022 Office outpatient vi sit 15 minutes Odette Reynolds Work Phone: [facility] Work Phone: Start: 07-14-2022 Patient encounter procedure Odette Reynolds Work Phone: [facility] Work Phone: Start: 12-18-2021 AUDIT Odette leedo Work Phone: [facility] Work Phone: Start: 12-16-2021 Chart Update Odette leedorf Work Phone: [facility] Work Phone: Start: 12-13-2021 AUDIT Odette Pacheco ngsdorf Work Phone: [facility] 205 DO Work Phone: Start: 08-21-2021 Office outpatient vi sit 15 minutes Odette Reynolds Work Phone: [facility] Work Phone: Start: 08-21-2021 Patient encounter procedure Odette Reynolds Work Phone: [facility] Work Phone: Start: 08-06-2021 Office outpatient vi sit 15 minutes Odette Reynolds Work Phone: -[facility] Work Phone: Start: 01-15-2021 End: 01-15-2021 Subsequent hospital visit by physician [facility] [place] [id number] Work Phone: [facility] Comment on above: Eructation [R14.2] Start: 01-08-2021 End: 01-08-2021 Patient encounter procedure External Provider [facility] Start: 01-08-2021 Results Only External Provider Exter nal-[facility] Start: 01-01-2021 End: 01-01-2021 Patient encounter procedure External Provider [facility] Start: 01-01-2021 Results Only External Provider Exter nal-[facility] Start: 09-26-2020 End: 09-29-2020 Patient encounter procedure ODETTE REYNOLDS [facility] Start: 09-26-2020 End: 09-28-2020 Subsequent hospital visit by physician Howell Ultrasound Room 1 [facility] Ultrasound Comment on above: Eructation Start: 08-22-2020 Patient encounter procedure Sidraarina Padronir [facility] Work Phone: Start: 08-21-2020 Patient encounter procedure Sidra [place] [facility] Work Phone: Start: 08-15-2020 Patient encounter procedure Sidra [place] [facility] Work Phone: Start: 07-16-2020 Patient encounter procedure Sidra [place] [facility] Work Phone: Start: 10-02-2019 Patient encounter procedure Sidra [place] [address] [address] Work Phone: Start: 09-07-2019 Patient encounter procedure Sidra Ross [address] Work Phone: Menarche Odette miller Work Phone: [facility] Work Phone: Comment on above: AGE 12; Patient encounter procedure Odette Reynolds Work Phone: [facility] Work Phone: Procedures Date Procedure Procedure Detail Performing Clinician Start: 01-04-2024 XR HIPS BILATERAL 5+ VW WITH PELVIS WHEN PERFORMED LILIBETH ROMERO Start: 12-29-2023 FOLLOW UP IN PHYSICAL THERAPY ODETTE REYNOLDS Start: 12-22-2023 FOLLOW UP IN PHYSICAL THERAPY ODETTE REYNOLDS Start: 12-16-2023 FOLLOW UP IN PHYSICAL THERAPY ODETTE REYNOLDS Start: 11-25-2023 AMB REFERRAL TO PHYSICAL THERAPY CAMILLE REYNOLDS Start: 11-11-2023 AMB REFERRAL TO ORTHOPAEDIC SURGERY ALEJANDRA REYNOLDS Start: 11-04-2023 XR HIPS BILATERAL 3 OR 4 VW WITH PELVIS WHEN PERFORMED ODETTE REYNOLDS Start: 11-04-2023 XR HIP LEFT WITH PELVIS WHEN PERFORMED 2 OR 3 VIEWS ODETTE REYNOLDS Start: 01-15-2021 Hepatobil syst imag inc gb w/pharma intervenj Dionte Calhoun Work Phone: Start: 01-08-2021 EXTERNAL IMAGING External Provider Start: 01-01-2021 EXTERNAL IMAGING External Provider Start: 09-26-2020 Us abdominal real time w/image limited Dionte Cutler ROBAUTOkandi Work Phone: Start: 08-23-2020 Holter Monitor 24-48 Hours Sidra Padronir Start: 08-22-2020 Echocardiography Start: 10-02-2019 Microscopic observation [Identifier] in Cervix by Cyto stain.thin prep Sidra Home Start: 10-02-2019 Microscopic observation [Identifier] in Cervix by Cyto stain Kobi 1 Start: 09-29-2019 Xray Esophagram Sidra Home Esophagogastroduodenoscopy B rett [place] Extraction of wisdom tooth B rett Home History of No history of surgery Silvia Schmid Plan of Treatment Date Care Activity Detail Author Start: 2047 Zoster Vaccines (1 o f 2) Zoster Vaccines (1 of 2) [facility] Start: 06-12-2032 DTaP/Tdap/Td Vaccine s (8 - Td or Tdap) DTaP/Tdap/Td Vaccines (8 - Td or Tdap) [facility] Start: 05-08-2024 End: 05-08-2024 Patient encounter procedure 05/08/2024 9:40 AM EDT Office Visit [address] [phone] Odette Reynolds MD [address] [place] [address] [place] [address] [facility] Start: 01-04-2024 End: 01-02-2025 XR Pelvis and Hip - bilateral Views [facility] Service Area Work Phone: Comment on above: Once for 1 Occurrenc es starting 01/04/2024 until 01/04/2024 Expected: 01/04/2024 , Expires: 01/02/2025 Start: 01-04-2024 End: 01-04-2024 Patient encounter procedure 01/04/2024 10:40 AM EDT Office Visit [facility] [address] [place] [phone] Lilibeth Romero MD [address] [place] [address] [facility] Start: 11-08-2023 End: 11-08-2023 Patient encounter procedure 11/08/2023 8:20 AM EST Office Visit [address] [phone] Odette Reynolds MD [address] [place] [address] [place] [address] [facility] Start: 06-18-2023 Influenza vaccination Influenz a Vaccine (#1) [facility] Start: 02-16-2023 End: 02-17-2024 XR Hip Views [facility] Service Area Work Phone: Comment on above: Expected: 02/16/2023 , Expires: 02/17/2024 Start: 10-02-2022 Screening for malignant neoplasm of cervix [facility] Start: 07-14-2022 EPV, Provider: Odette Reynolds, Status: Pen, Time: 4:00 PM EPV, Provider: Odette Reynolds, Status: Pen, Time: 4:00 PM [facility] Work Phone: Start: 01-01-2022 EPV, Provider: Odette Reynolds, Status: Pen, Time: 4:40 PM EPV, Provider: Odette Reynolds, Status: Pen, Time: 4:40 PM [facility] Work Phone: Start: 09-17-2021 FUV, Provider: Jignesh Painting, Status: Pen, Time: 8:30 AM FUV, Provider: Jignesh Painting, Status: Pen, Time: 8:30 AM [facility] Work Phone: Start: 08-21-2021 FUV, Provider: Odette Reynolds, Status: Pen, Time: 4:40 PM FUV, Provider: Odette Reynolds, Status: Pen, Time: 4:40 PM [facility] Work Phone: Start: 06-18-2020 Influenza vaccination [facility] [place], [place] Start: 2018 PAP TESTING PAP TESTING [facility] Start: 2018 Screening for malignant neoplasm of cervix [facility] Start: 2016 DTaP/Tdap/Td vaccine (1 - Tdap) DTaP/Tdap/Td vaccine (1 - Tdap) [place], [place] Start: 2016 Urine microalbumin profile DTAP,TDAP,TD (1 - Tdap) [facility] Start: 2015 CHLAMYDIA SCREENING (18-24) CHLAMYDIA SCREENING (18-24) [facility] Start: 2015 GC (GONORRHEA) SCREENING (18-24) GC (GONORRHEA) SCREENING (18-24) [facility] Start: 2015 HEPATITIS C SCREENING HEPATITIS C [facility] Start: 2015 Hepatitis C screening Hepatitis C [facility] Start: 2015 HIV SCREENING [facility] Start: 2013 Screening for Chlamydia trachomatis Chlamydia screen [place], [place] Start: 2012 HIV screening HIV screen [place], [place] Start: 2009 Adult depression screening assessment DEPRESSION SCREENING [facility] Start: 2008 HPV vaccine (1 - 2-dose series) HPV vaccine (1 - 2-dose series) [place], [place] Start: 1998 Varicella vaccine (1 of 2 - 2-dose childhood series) [place], [place] Start: 04-25-1998 COVID-19 Vaccine (#1) COVID-19 Vacci ne (#1) [facility] Start: 1997 HIV screening HIV Screening [facility] Start: 1997 Lipid panel Lipid Panel [facility] Start: 1997 Yearly Adult Physical Yearly Adult P hysical [facility] End: 11-04-2023 XR Hip Views XR hip left with pelvis when performed 2 or 3 views Imaging Routine Pain in right hip Pain in left hip Once for 1 Occurrences starting 11/04/2023 until 11/04/2023 [facility] Service Area Work Phone: Comment on above: Once for 1 Occurrenc es starting 11/04/2023 until 11/04/2023 End: 11-04-2023 XR Pelvis and Hip - bilateral Views [facility] Work Phone: Comment on above: Once for 1 Occurrenc es starting 11/04/2023 until 11/04/2023 NEGATED: Highlighted row has been ruled out! Planned Goals not documented [facility] Work Phone: Immunizations Immunization Date Immunization Notes Care Provider Srinivas bro 08-29-2022 influenza, seasonal, injectable Odette Reynolds MD Work Phone: [facility] Work Phone: 08-29-2022 influenza virus vacc ine, unspecified formulation [facility] 1 [facility] Work Phone: 06-12-2022 tetanus toxoid, redu jenny diphtheria toxoid, and acellular pertussis vaccine, adsorbed Odette Reynolds MD Work Phone: [facility] Work Phone: 12-09-2015 meningococcal polysaccharide (groups A, C, Y and W-135) diphtheria toxoid conjugate vaccine (MCV4P) Odette Reynolds MD Work Phone: [facility] Work Phone: 12-06-2014 human papilloma viru s vaccine, quadrivalent Odette Reynolds MD Work Phone: [facility] Work Phone: 09-05-2013 human papilloma viru s vaccine, quadrivalent Odette Reynolds MD Work Phone: [facility] Work Phone: 09-05-2013 influenza, injectabl e, quadrivalent, preservative free Odette Reynolds MD Work Phone: [facility] Work Phone: 05-02-2012 human papilloma viru s vaccine, quadrivalent Odette Reynolds MD Work Phone: [facility] Work Phone: 04-23-2011 hepatitis A vaccine, pediatric/adolescent dosage, 2 dose schedule Odette Reynolds MD Work Phone: [facility] Work Phone: 04-14-2010 hepatitis A vaccine, pediatric/adolescent dosage, 2 dose schedule Odette Reynolds MD Work Phone: [facility] Work Phone: 04-01-2009 meningococcal polysaccharide (groups A, C, Y and W-135) diphtheria toxoid conjugate vaccine (MCV4P) Odette Reynolds MD Work Phone: [facility] Work Phone: 04-01-2009 tetanus toxoid, redu jenny diphtheria toxoid, and acellular pertussis vaccine, adsorbed Odette Reynolds MD Work Phone: [facility] Work Phone: 04-01-2009 varicella virus vaccine Alejandra Reynolds MD Work Phone: [facility] Work Phone: 04-04-2003 diphtheria, tetanus toxoids and acellular pertussis vaccine, unspecified formulation Odette Reynolds MD Work Phone: [facility] Work Phone: 04-04-2003 measles, mumps and rubella virus vaccine Odette Reynolds MD Work Phone: [facility] Work Phone: 04-04-2003 poliovirus vaccine, inactivated Odette Reynolds MD Work Phone: [facility] Work Phone: 03-04-2001 pneumococcal conjuga te vaccine, 7 valent Odette Reynolds MD Work Phone: [facility] Work Phone: 04-22-1999 diphtheria, tetanus toxoids and acellular pertussis vaccine, unspecified formulation Odette Reynolds MD Work Phone: [facility] Work Phone: 04-22-1999 haemophilus influenz ae type b vaccine, HbOC conjugate Odette Reynolds MD Work Phone: [facility] Work Phone: 04-22-1999 measles, mumps and rubella virus vaccine Odette Reynolds MD Work Phone: [facility] Work Phone: 04-22-1999 trivalent poliovirus vaccine, live, oral Odette Reynolds MD Work Phone: [facility] Work Phone: 12-19-1998 varicella virus vaccine Alejandra Reynolds MD Work Phone: [facility] Work Phone: 04-26-1998 diphtheria, tetanus toxoids and acellular pertussis vaccine, unspecified formulation Odette Reynolds MD Work Phone: [facility] Work Phone: 04-26-1998 haemophilus influenz ae type b vaccine, conjugate unspecified formulation Odette Reynolds MD Work Phone: [facility] Work Phone: 04-26-1998 hepatitis B vaccine, pediatric or pediatric/adolescent dosage Odette Reynolds MD Work Phone: [facility] Work Phone: 03-01-1998 diphtheria, tetanus toxoids and acellular pertussis vaccine, unspecified formulation Odette Reynolds MD Work Phone: [facility] Work Phone: 03-01-1998 haemophilus influenz ae type b vaccine, HbOC conjugate Odette Reynolds MD Work Phone: [facility] Work Phone: 03-01-1998 poliovirus vaccine, inactivated Odette Reynolds MD Work Phone: [facility] Work Phone: 02-19-1998 diphtheria, tetanus toxoids and acellular pertussis vaccine, unspecified formulation Odette Reynolds MD Work Phone: [facility] Work Phone: 02-19-1998 haemophilus influenz ae type b vaccine, conjugate unspecified formulation Odette Reynolds MD Work Phone: [facility] Work Phone: 1997 diphtheria, tetanus toxoids and acellular pertussis vaccine, unspecified formulation Odette Reynolds MD Work Phone: [facility] Work Phone: 1997 haemophilus influenz ae type b vaccine, conjugate unspecified formulation Odette Reynolds MD Work Phone: [facility] Work Phone: 1997 poliovirus vaccine, inactivated Odette Reynolds MD Work Phone: [facility] Work Phone: 1997 hepatitis B vaccine, pediatric or pediatric/adolescent dosage Odette Reynolds MD Work Phone: [facility] Work Phone: 1997 hepatitis B vaccine, pediatric or pediatric/adolescent dosage Odette Reynolds MD Work Phone: [facility] Work Phone: Payers Date Payer Category Payer Unknown [id number] 2022 Unknown 2022 Unknown [id number] 2020 Unknown [id number] 2020 Unknown MMO MMO [employer] [id number] 2020-Present PPO [id number] 1997 Unknown [id number] 1997 Unknown [id number] 1997 Unknown [id number] 1997 Unknown [id number] 1997 Unknown [id number] 1997 Unknown [id number] 1997 Unknown [id number] 1997 Unknown [id number] 1997 Unknown [id number] 1997 Unknown [id number] 1997 Unknown [id number] Social History Date Type Detail Facility Start: 1997 Sex Assigned At Not on file [place] Start: 02-06-2023 End: 01-04-2024 Exposure to SARS-CoV-2 (event) Not sure [facility] Start: 02-16-2023 End: 11-25-2023 Never a smoker Never a smoker [facility] Work Phone: Start: 02-16-2023 Tobacco smoking status NHIS Never smoked tobacco [facility] Work Phone: Start: 02-16-2023 Tobacco use and exposure Smokeless tobacco non-user [facility] Work Phone: Start: 02-16-2023 End: 01-04-2024 Alcohol intake Ex-drinker (finding) [facility] Work Phone: Start: 02-16-2023 End: 11-25-2023 Gender identity Not on file [facility] Work Phone: NEGATED: Highlighted row - - -[facility] [address] Work Phone: Functional Status Date Assessment Result Facility NEGATED: Highlighted row Functional performance Functional status health issues are not documented Disease -[facility] [address] Work Phone: Mental Status Date Assessment Result Facility NEGATED: Highlighted row Cognitive function [Interpretation] Cognitive status health issues are not documented Disease -[facility] [address] Work Phone: Clinical Notes 11-16-2021 to 01-04-2024 Lilibeth Romero MD - 01/04/2024 10:40 AM EDTAssessment & Plan Note - AUGUST Aquino - 11/11/2023 2:21 PM AUGUST Henry - 11/11/2023 1:00 PM ESTPatient Instructions Note Date & Type Note Facility 01-04-2024 History of Presen t illness Narrative HPI This is a pleasant 28 y.o. female here today for bilateral hip pain. Patient has been having intermittent pain that began in high school but is gotten worse over the last year and a half when she delivered her baby. She has utilized anti-inflammatories and did physical therapy for about 6 weeks but it did not really help. She has currently intermittent symptoms every 3 months or so that lasted about a week to 2 weeks when they occur that are 6 sharp stabbing pain in the anterior lateral aspect of the hip. Seems to be a little bit worse with weightbearing though she cannot really determine what the triggers are. Currently she is not having daily discomfort just these intermittent episodes but when they do occur they are severe Past Medical History: Diagnosis Date Encounter for screening for malignant neoplasm of vagina Vaginal Pap smear Melena 07/16/2020 Blood in stool Other conditions influencing health status Menarche Other specified disorders of ear, unspecified ear 08/21/2020 Ear fullness Past Surgical History: Procedure Laterality Date OTHER SURGICAL HISTORY 10/02/2019 [place] tooth extraction OTHER SURGICAL HISTORY 07/16/2020 Esophagogastroduodenoscopy Social History Tobacco Use Smoking status: Never Smokeless tobacco: Never Substance Use Topics Alcohol use: Not Currently Drug use: Not Currently ROS Review of systems reviewed and pertinent positives mentioned in HPI. PHYSICAL EXAM There is not pain with a resisted situp. There is not abdominal distention or tenderness The patient's range of motion reveals that they have 90 of hip flexion on the affected side. Hip extension to 10 Abduction to 45 The patient is 5 out of 5 strength with resisted hip AB, adduction, hamstring and quadriceps testing. No pain over the hip flexor, ASIS. No pain over the proximal hamstring, piriformis Pain Provacation testing: Positive impingement sign,with a painful arc from 12 to 3:00. Negative Psoas impingement/Kelly test Negative instability, Log roll. Positive subspine impingement test, which is pain with straight hip flexion. Negative straight leg raise. Negative circumduction clunk. Peritrochanteric space examination: Tenderness over the betty-trochanteric space - Yes pain over the posterior trochanter - Yes IMAGING X-rays reviewed reveal no gross fracture or dislocation. and evidence of femoral acetabular impingement with an alpha angle of 65. Acetabular index of 12.8 with acetabular retroversion. Lateral center edge of 19. MRI reviewed reveals No MRI available for review ASSESSMENT Bilateral femoral acetabular impingement, acetabular dysplasia PLAN This is a 28 y.o. female patient here today with significant hip pain. We will have the patient initiate a course of physical therapy and continue NSAIDs and activity modification. If symptoms persist, we will see them back for re-evaluation. Lilibeth Romero MD documented in this encounter [facility] Work Phone: 11-11-2023 Evaluation + Plan note Associated Problem(s): Acetabular dysplasia We discussed symptom control. Patient to continue with meloxicam for the next 3 to 4 weeks or as written by her PCP. She may take Tylenol in addition if needed for symptom relief. Patient was provided with instruction for stretching, range of motion and strengthening exercises for hip OA strengthening. Encourage patient to begin and advance as tolerated. I also highly recommend formal PT for strengthening to see if this helps maintain regular activities and limit flares. Case was discussed with Dr. Fry on date of visit, plan will be to have patient have one-time visit with hip specialist. Referring to Dr. Romero. Patient is aware she can follow-up here on a as needed basis as this is closer to her residence. Online resources for home exercises also provided. Patient is in agreement with current plan of care. This note was generated using AMDL software. It may contain errors in wording, punctuation or spelling. [facility] Work Phone: 11-11-2023 Miscellaneous Notes Associate d Problem(s): Acetabular dysplasia We discussed symptom control. Patient to continue with meloxicam for the next 3 to 4 weeks or as written by her PCP. She may take Tylenol in addition if needed for symptom relief. Patient was provided with instruction for stretching, range of motion and strengthening exercises for hip OA strengthening. Encourage patient to begin and advance as tolerated. I also highly recommend formal PT for strengthening to see if this helps maintain regular activities and limit flares. Case was discussed with Dr. Fry on date of visit, plan will be to have patient have one-time visit with hip specialist. Referring to Dr. Romero. Patient is aware she can follow-up here on a as needed basis as this is closer to her residence. Online resources for home exercises also provided. Patient is in agreement with current plan of care. This note was generated using AMDL software. It may contain errors in wording, punctuation or spelling. documented in this encounter [facility] Work Phone: 11-11-2023 History of Presen t illness Narrative Subjective Patient ID: Marques Ruvalcaba is a 28 y.o. female. Chief Complaint Patient presents with Left Hip - Pain Right Hip - Pain HPI Marques is a pleasant 28-year-old female presenting today for new patient evaluation of bilateral hip pain for 1 yr, vag delivery 14 mo ago with epidural, had some pain in but worse since. Also reports sensations of laxity at different stages of . No injuries. Mainly to R anterior/lateral currently, does alternate between left and right. Patient also reports in high school the left hip that caused some issues better with therapy. Currently on anti inflammatory for last week and is helping Flared with step use, worse down, getting up from sitting position, walking, difficulty getting out of bed at times Occasional severe flares 3-4 times in last year No relief with OTC meds, no PT yet Review of Systems Constitutional: Negative. HENT: Negative. Respiratory: Negative. Cardiovascular: Negative. Endocrine: Negative. Musculoskeletal: Positive for arthralgias. Skin: Negative. Neurological: Negative. Hematological: Negative. Psychiatric/Behavioral: Negative. Objective Right Hip Exam Tenderness Right hip tenderness location: anterior/lateral. Range of Motion The patient has normal right hip ROM. Tests KELLY: positive Other Erythema: absent Sensation: normal Pulse: present Comments: Symptoms aggravated with external rotation and mildly with KELLY testing. No laxity appreciated. Full range of motion of distal joints with no symptom aggravation. Distal motor and sensory intact, cap refill at 2 seconds. Left Hip Exam Tenderness Left hip tenderness location: anterior/lateral. Range of Motion The patient has normal left hip ROM. Tests KELLY: negative Other Erythema: absent Sensation: normal Pulse: present Comments: Symptoms aggravated with external rotation and mildly with KELLY testing. No laxity appreciated. Full range of motion of distal joints with no symptom aggravation. Distal motor and sensory intact, cap refill at 2 seconds. Image Results: XR hips bilateral 3 or 4 VW w pelvis when performed Narrative: Interpreted By: Trista Hicks, STUDY: Single view pelvis. Two views right hip. Two views left hip. INDICATION: Signs/Symptoms:Bilateral hip pain. COMPARISON: None. ACCESSION NUMBER(S): [id number] ORDERING CLINICIAN: ODETTE REYNOLDS FINDINGS: No acute fracture or malalignment. Bilateral hip joint spaces are well preserved. Bilateral acetabular dysplasia with lateral uncovering of the femoral heads. Soft tissues are within normal limits. Impression: 1. Bilateral acetabular dysplasia. 2. No significant degenerative changes or acute radiographic findings of the hips. MACRO: None. Signed by: Trista Hicks 11/06/2023 7:18 AM Dictation workstation: [id number] Assessment/Plan Encounter Diagnoses: Problem List Items Addressed This Visit ICD-10-CM Acetabular dysplasia Q65.89 We discussed symptom control. Patient to continue with meloxicam for the next 3 to 4 weeks or as written by her PCP. She may take Tylenol in addition if needed for symptom relief. Patient was provided with instruction for stretching, range of motion and strengthening exercises for hip OA strengthening. Encourage patient to begin and advance as tolerated. I also highly recommend formal PT for strengthening to see if this helps maintain regular activities and limit flares. Case was discussed with Dr. Fry on date of visit, plan will be to have patient have one-time visit with hip specialist. Referring to Dr. Romero. Patient is aware she can follow-up here on a as needed basis as this is closer to her residence. Online resources for home exercises also provided. Patient is in agreement with current plan of care. This note was generated using AMDL software. It may contain errors in wording, punctuation or spelling. Relevant Orders Follow Up In Orthopaedic Surgery Referral to Physical Therapy Referral to Orthopaedic Surgery Bilateral hip pain M25.551, M25.552 Relevant Orders Follow Up In Orthopaedic Surgery Referral to Physical Therapy Referral to Orthopaedic Surgery documented in this encounter [facility] Work Phone: 11-08-2023 History of Presen t illness Narrative Subjective Patient ID: Marques Ruvalcaba is a 28 y.o. female who presents for right hip pain. Xray was done and wants you to go over it. Also states they have URI symptoms. n HPI Review of Systems Objective There were no vitals taken for this visit. Physical Exam Assessment/Plan Subjective Marques Ruvalcaba is a 28 y.o. female who presents for No chief complaint on file.. Here for follow up anxiety, GERD, hip pain. She did get her hip Xrays which show Bilateral acetabular dysplasia. She will have flare ups of pretty intense pain. Objective Visit Vitals BP 118/80 (BP Location: Left arm, Patient Position: Sitting, BP Cuff Size: Adult) Pulse 77 Physical Exam Vitals reviewed. Constitutional: General: She is not in acute distress. Cardiovascular: Rate and Rhythm: Normal rate and regular rhythm. Heart sounds: No murmur heard. Pulmonary: Effort: Pulmonary effort is normal. No respiratory distress. Breath sounds: Normal breath sounds. Skin: General: Skin is warm and dry. Neurological: General: No focal deficit present. Mental Status: She is alert. Mental status is at baseline. Assessment/Plan Problem List Items Addressed This Visit Anxiety disorder - Primary Relevant Medications escitalopram (Lexapro) 10 mg tablet Other Relevant Orders Follow Up In Primary Care - Established GERD (gastroesophageal reflux disease) Relevant Medications lansoprazole (Prevacid) [address] capsule famotidine (Pepcid) 40 mg tablet Other Relevant Orders Follow Up In Primary Care - Established Other Visit Diagnoses Bilateral hip pain Relevant Medications meloxicam (Mobic) 15 mg tablet Other Relevant Orders Referral to Orthopaedic Surgery Follow Up In Primary Care - Established Acetabular dysplasia Relevant Medications meloxicam (Mobic) 15 mg tablet Other Relevant Orders Referral to Orthopaedic Surgery Follow Up In Primary Care - Established Odette Reynolds MD documented in this encounter [facility] Work Phone: 11-08-2023 Instructions Odette Reynolds MD - 11/08/2023 8:20 AM EST Will refer to ortho for her hips and start meloxicam. Continue other medications. Follow up in 6 months, sooner if needed. documented in this encounter [facility] Work Phone: 02-16-2023 History of Presen t illness Narrative Pt is here today with the C/O bilat hip pain. Subjective Marques E Peg is a 27 y.o. female who presents for No chief complaint on file.. Here for f/u anxiety, GERD. Overall she is doing well but she is having issues with her hip - started shortly after her daughter was born 5-6 months ago. Started on the left side - would be so bad she couldn't walk on it, then it would get better. More recently it was the right hip. Will go for a while with no pain then it will start and lasts about a week, not able to identify a specific trigger - thought it may have been related to a chair she was sitting in, but hasn't been using that chair and it is still happening. Objective Visit Vitals BP 116/76 Pulse 81 Physical Exam Vitals reviewed. Constitutional: General: She is not in acute distress. Cardiovascular: Rate and Rhythm: Normal rate and regular rhythm. Heart sounds: No murmur heard. Pulmonary: Effort: Pulmonary effort is normal. No respiratory distress. Breath sounds: Normal breath sounds. Musculoskeletal: General: Normal range of motion. Skin: General: Skin is warm and dry. Neurological: General: No focal deficit present. Mental Status: She is alert. Mental status is at baseline. Assessment/Plan Problem List Items Addressed This Visit Other Anxiety disorder Relevant Medications escitalopram (Lexapro) 10 mg tablet Other Relevant Orders Follow Up In Primary Care Other Visit Diagnoses Bilateral hip pain - Primary Relevant Orders XR hip left 2 or 3 views XR hip right 2 or 3 views Follow Up In Primary Care Odette Reynolds MD documented in this encounter [facility] Work Phone: 02-16-2023 Instructions Odette Reynolds MD - 02/16/2023 2:20 PM EDT Will get Xrays and go from there. documented in this encounter [facility] Work Phone: 11-16-2021 History of Presen t illness Narrative Here for f/u anxiety, GERD. She is doing well - 35 weeks . She is tolerating her medications well and they are working well for her. No concerns at this time. [facility] Work Phone: 11-16-2021 History of Presen t illness Narrative Here for f/u anxiety, GERD. She is doing well - 35 weeks . [facility] Work Phone: Evaluation note Diagnosis Bilateral hip pain- Primary Pain in joint, pelvic region and thigh Generalized anxiety disorder documented in this encounter [facility] Work Phone: Evaluation note* Diagnosis Pain in right hip Pain in left hip documented in this encounter [facility] Work Phone: Evaluation note* Diagnosis Generalized anxiety disorder- Primary Bilateral hip pain Pain in joint, pelvic region and thigh Acetabular dysplasia Other congenital deformity of hip (joint) Gastroesophageal reflux disease, unspecified whether esophagitis present documented in this encounter [facility] Work Phone: Evaluation note* Diagnosis Bilateral hip pain Pain in joint, pelvic region and thigh Acetabular dysplasia Other congenital deformity of hip (joint) documented in this encounter [facility] Work Phone: Evaluation note* Diagnosis Bilateral hip pain Pain in joint, pelvic region and thigh documented in this encounter [facility] Work Phone: Evaluation note* Diagnosis Bilateral hip pain Pain in joint, pelvic region and thigh documented in this encounter [facility] Work Phone: History of Present illness NarrativeHere c/o worsening anxiety. She states that her GERD is worse and her GI specialist suggested that her stress may be contributing to it. She states that she has had some anxiety her whole life, thinks she may have some OCD. SHe has not been on medication for anxiety in the past. She is trying to get in to counselling right now. She states that she really doesn't feel depressed, just finds herselfruminating on things.[facility] Work Phone: History of Present illness NarrativeHere for f/u anxiety. She states that she is feeling much better with her stomach symptoms. She is still having a lot of anxiety.[facility] Work Phone: History of Present illness NarrativeHere for f/u anxiety. She states that she is feeling much better with her stomach symptoms. She is still having a lot of anxiety though. We discussed giving it some more time vs increasing the dose of the lexapro and she would like to give it a little more time.[facility] Work Phone: History of Present illness NarrativeHere for f/u anxiety. She states that she is feeling much better with her stomach symptoms. She is still having a lot of anxiety though. We discussed giving it some more time vs increasing the dose of the lexapro and she would like to give it a little more time.[facility] Work Phone: Reason for referral (narrative)* Consultation (Routine) - Authorized Specialty Diagnoses / Procedures Referred By Vance beach Referred To Contact Primary Care Diagnoses Bilateral hip pain Generalized anxiety disorder Procedures Follow Up In Primary Care Odette Reynolds MD [address] [facility] [place] [address] Referral ID Status Reason Start Date Expiration Date V isits Requested Visits Authorized [id number] Authorized 02/16/2023 08/15/2023 1 1 * Imaging (Routine) - Authorized Specialty Diagnoses / Procedures Referred By Vance beach Referred To Contact Radiology Diagnoses Bilateral hip pain Procedures XR hip right 2 or 3 views Odette Reynolds MD [address] [place] [id number] Referral ID Status Reason Start Date Expiration Date Visits Requested Visits Authorized [id number] Authorized Perform Procedure 02/16/2023 08/15/2023 1 1 * Imaging (Routine) - Authorized Specialty Diagnoses / Procedures Referred By Contac t Referred To Contact Radiology Diagnoses Bilateral hip pain Procedures XR hip left 2 or 3 views Odette Reynolds MD [address] [place] [address] Referral ID Status Reason Start Date Expiration Date Visits Requested Visits Authorized [id number] Authorized Perform Procedure 02/16/2023 08/15/2023 1 1 [facility] Work Phone: Reason for referral (narrative)* Consultation (Routine) - Authorized Specialty Diagnoses / Procedures Referred By Contac t Referred To Contact Primary Care Diagnoses Bilateral hip pain Acetabular dysplasia Generalized anxiety disorder Gastroesophageal reflux disease, unspecified whether esophagitis present Procedures Follow Up In Primary Care - Established Odette Reynolds MD [address] [place] [address] Referral ID Status Reason Start Date Expiration Date V isits Requested Visits Authorized [id number] Authorized 11/08/2023 11/07/2024 1 1 * Consultation (Routine) - Authorized Specialty Diagnoses / Procedures Referred By Contac t Referred To Contact Orthopaedic Surgery / Orthopedic Surgery Diagnoses Bilateral hip pain Acetabular dysplasia Odette Reynolds MD [address] [place] [address] Referral ID Status Reason Start Date Expiration Date Visits Requested Visits Authorized [id number] Authorized Specialty Services Required 11/08/2023 11/07/2024 1 1 [facility] Work Phone: Reewte for referral (narrative)* Consultation (Routine) - Authorized Specialty Diagnoses / Procedures Referred By Contac t Referred To Contact Orthopaedic Surgery / Orthopedic Surgery Diagnoses Bilateral hip pain Acetabular dysplasia Danika Andrade, DOPEMAN-BIOINFORMATICIST [address] [facility] [place] [facility] [place] [address] [address] Lilibeth Romero MD [address] [address] Referral ID Status Reason Start Date Expiration Date Visits Requested Visits Authorized [id number] Authorized Specialty Services Required 11/11/2023 11/10/2024 1 1 * Consultation (Routine) - Pending Review Specialty Diagnoses / Procedures Referred By Vance beach Referred To Contact Physical Therapy Diagnoses Bilateral hip pain Acetabular dysplasia Danika Andrade APRN-CNP [address] [facility] [place] [facility] [place], [place] [id number] Referral ID Status Reason Start Date Expiration Date Visits Requested Visits Authorized [id number] Pending Review Specialty Services Required 11/11/2023 11/10/2024 1 1 Scheduling Instructions Bilat hip dysplasia * Consultation (Routine) - Authorized Specialty Diagnoses / Procedures Referred By Vance beach Referred To Contact Orthopaedic Surgery / Orthopedic Surgery Diagnoses Bilateral hip pain Acetabular dysplasia Procedures Follow Up In Orthopaedic Surgery Danika Andrade APRN-CNP [address] [facility] [place] [facility]– [place], [place] [id number] Enoc Fry MD [address] [address] Referral ID Status Reason Start Date Expiration Date V isits Requested Visits Authorized [id number] Authorized 11/11/2023 11/10/2024 1 1 [facility] Work Phone: Summary Purpose Family History No Family History Records Found Father Name Dates Details Family history of gastroesop hageal reflux disease(V18.59, Z83.79) Status:Active Father Name Dates Details Family history of gastroesop hageal reflux disease(V18.59, Z83.79) Status:Active Father Name Dates Details Family history of gastroesop hageal reflux disease(V18.59, Z83.79) Status:Active Father Name Dates Details Family history of gastroesop hageal reflux disease(V18.59, Z83.79) Status:Active Father Name Dates Details Family history of gastroesop hageal reflux disease(V18.59, Z83.79) Status:Active Family history of hypertensi on(V17.49, Z82.49) Status:Active Father Name Dates Details Family history of gastroesop hageal reflux disease(V18.59, Z83.79) Status:Active Family history of hypertensi on(V17.49, Z82.49) Status:Active Unknown Family Member Name Dates Details Family history of gastroesop hageal reflux disease: Father(V18.59, Z83.79) Status:Active Family history of hypertensi on: Father(V17.49, Z82.49) Status:Active Unknown Family Member Name Dates Details Family history of gastroesop hageal reflux disease: Father(V18.59, Z83.79) Status:Active Family history of hypertensi on: Father(V17.49, Z82.49) Status:Active Unknown Family Member Name Dates Details Family history of gastroesop hageal reflux disease: Father(V18.59, Z83.79) Status:Active Family history of hypertensi on: Father(V17.49, Z82.49) Status:Active Unknown Family Member Name Dates Details Family history of hypertensi on: Father(V17.49, Z82.49) Status:Active Family history of gastroesop hageal reflux disease: Father(V18.59, Z83.79) Status:Active Unknown Family Member Name Dates Details Family history of gastroesop hageal reflux disease: Father(V18.59, Z83.79) Status:Active Family history of hypertensi on: Father(V17.49, Z82.49) Status:Active Unknown Family Member Name Dates Details Family history of gastroesop hageal reflux disease: Father(V18.59, Z83.79) Status:Active Family history of hypertensi on: Father(V17.49, Z82.49) Status:Active Unknown Family Member Name Dates Details Family history of gastroesop hageal reflux disease: Father(V18.59, Z83.79) Status:Active Family history of hypertensi on: Father(V17.49, Z82.49) Status:Active Unknown Family Member Name Dates Details Family history of gastroesop hageal reflux disease: Father(V18.59, Z83.79) Status:Active Family history of hypertensi on: Father(V17.49, Z82.49) Status:Active Unknown Family Member Name Dates Details Family history of gastroesop hageal reflux disease: Father(V18.59, Z83.79) Status:Active Family history of hypertensi on: Father(V17.49, Z82.49) Status:Active Advance Directives No Advanced Directives Records FoundNo Advanced Directives Records FoundNo Advanced Directives Records FoundNo Advanced Directives Records FoundNo Advanced Directives Records FoundNo Advanced Directives Records FoundNo Advanced Directives Records FoundNo Advanced Directives Records FoundNo Advanced Directives Records Found Reason for Referral Status Reason Specialty Diagnoses / Procedures Referred By Contact Referred To Contact Pending Review Radiology Diagnoses Eructation Procedures US GALLBLADDER RUQ Basclaytonr, Dion[address] [place] [address] Specialty Diagnoses / Procedures Referred By Contac t Referred To Contact Radiology Diagnoses Pain in right hip Pain in left hip Procedures XR hip left with pelvis when performed 2 or 3 views Odette Reynolds MD [address] [facility] [place] [address] Referral ID Status Reason Start Date Expiration Date Visits Requested Visits Authorized [id number] Authorized Perform Procedure 11/04/2023 11/03/2024 1 1 Specialty Diagnoses / Procedures Referred By Contac t Referred To Contact Radiology Diagnoses Bilateral hip pain Procedures XR hips bilateral 5+ VW w pelvis when performed Lilibeth Romero MD [address] [place] [id number] Referral ID Status Reason Start Date Expiration Date Visits Requested Visits Authorized [id number] Authorized Perform Procedure 01/03/2024 01/02/2025 1 1 Assessments Diagnosis Eructation Flatulence, eructation, and gas pain History of Present Illness * Jeannie Kenny (Orthotic FitterGaby, MEGAN - 01/15/2021 2:00 PM EDT RADIOLOGY SERVICE PROGRESS NOTE SERVICE DATE: 01/15/2021 SERVICE TIME: 2:32 PM PATIENT IDENTITY VERIFICATION COMPLETED USING TWO (2) STANDARD IDENTIFIERS: Name and Date of confirmed by patient verbally and Name and Date of confirmed by identification band FALL SCREENING: Has the patient had 2 falls in the last year or 1 fall with injury or currently using an Ambulatory Assistive Device (Walker, Cane, Wheelchair, Crutches, etc.)? No PATIENT GENDER DATA: .female : No ALLERGIES: Reviewed and unchanged MEDICATIONS REVIEWED: Not applicable PATIENT RELEVANT IMPLANT DATA REVIEWED: Not Applicable CREATININE: No results found for: CREAT, EGFROTH, EGFRAA P.O.C.T. RESULTS: N/A January 15, [address] PERFORMED: No IV SITE: Ambulatory: A peripheral IV was started in the Right antecubital site with a Angio cath: 24 gauge. POST EXAM PIV STATUS: Discontinued PROCEDURE TYPE: NM INJECT: HIDA. 5.6 mCi Tc99m CHOLETEC. CCK 1.24 micrograms intravenous at 15:10. ADMINISTRATION TIME: 14:03 PATIENT DISCHARGED TO: Ambulatory patient, left NM department area. A Diagnostic radioactive procedure has taken place, with no further precautions necessary other than routine body substance precautions. More information regarding radiation safety can be found usingthis link: [email or web address] SIGNATURE: JENS Dexter PATIENT NAME: Marques Ruvalcaba DATE: January 15, 2021 TIME: 2:32 PM PAGER/CONTACT #: documented in this encounter Chief Complaint anxiety2 week check up, no concerns2 week check up, no concerns2 week check up, no concernsckup,ckup, Additional Source Comments INFORMATION SOURCE (unrecogn ized section and content) DATE CREATED AUTHOR 03/30/2019 [facility] DATE CREATED AUTHOR AUTHOR'S ORGANIZ ATION 08/30/2020 [facility] DATE CREATED AUTHOR AUTHOR'S ORGANIZ ATION 09/29/2020 [facility] DATE CREATED AUTHOR AUTHOR'S ORGANIZ ATION 01/16/2021 [facility] DATE CREATED AUTHOR AUTHOR'S ORGANIZ ATION 08/24/2021 [facility] DATE CREATED AUTHOR AUTHOR'S ORGANIZ ATION 12/16/2021 [facility] DATE CREATED AUTHOR AUTHOR'S ORGANIZ ATION 01/07/2024 [facility] DATE CREATED AUTHOR AUTHOR'S ORGANIZ ATION 01/09/2024 [facility] DATE CREATED AUTHOR AUTHOR'S ORGANIZ ATION 06/26/2024 [facility] Reason for Visit (unrecogniz ed section and content) Status Reason Specialty Diagnoses / Procedures Referred By Contact Referred To Contact Pending Review Diagnoses Eructation Procedures HC US ABDOMEN COMPLETE RUQ Lesia Calhouni [address] [place] [address] Specialty Diagnoses / Procedures Referred By [place] Referred To Contact Radiology Diagnoses Pain in right hip Pain in left hip Procedures XR hips bilateral 3 or 4 VW w pelvis when performed XR hip right with pelvis when performed 2 or 3 views Odette Reynolds MD [address] [place] [id number] Referral ID Status Reason Start Date Expiration Date Visits Requested Visits Authorized [id number] Authorized Perform Procedure 11/04/2023 11/03/2024 1 1 Reason Comments Pain Specialty Diagnoses / Procedures Referred By [place]ance [place] Referred To Contact Orthopaedic Surgery / Orthopedic Surgery Diagnoses Bilateral hip pain Acetabular dysplasia Odette Reynolds MD [address] [facility] [place] [phone] Referral ID Status Reason Start Date Expiration Date Visits Requested Visits Authorized [id number] Authorized Specialty Services Required 11/08/2023 11/07/2024 1 1 Specialty Diagnoses / Procedures Referred By Contac t Referred To Contact Radiology Diagnoses Bilateral hip pain Procedures XR hips bilateral 5+ VW w pelvis when performed Lilibeth Romero MD [address] [place] [address] [place] [address] Referral ID Status Reason Start Date Expiration Date Visits Requested Visits Authorized [id number] Authorized Perform Procedure 01/03/2024 01/02/2025 1 1 Reason Comments Pain Source Comments (unrecognize d section and content) In the event this informatio n is protected by the Federal Confidentiality of Alcohol and Drug Abuse Patient Records regulations: The Federal rules restrict any use of the information to criminally investigate or prosecute any alcohol or drug abuse patient.[facility] the event this information is protected by the Federal Confidentiality of Alcohol and Drug Abuse Patient Records regulations: The Federal rules restrict any use of the information to criminally investigate or prosecute any alcohol or drug abuse patient.[facility] the event this information is protected by the Federal Confidentiality of Alcohol and Drug Abuse Patient Records regulations: The Federal rules restrict any use of the information to criminally investigate or prosecute any alcohol or drug abuse patient.[facility] Care Teams (unrecognized sec tion and content) Machine Operator Hop Worker Relationship Specialty Start Date End Date Odette Reynolds MD [address] [facility] [place] [address] PCP - General 07/09/20 Machine Operator Hop Worker Relationship Specialty Start Date End Date Odette Reynolds MD [address] [facility] [place] [address] PCP - General 07/09/20 Odette Reynolds MD [address] [facility] [place] [address] PCP - MMO ACO PCP 03/18/23 Machine Operator Hop Worker Relationship Specialty Start Date End Date Odette Reynolds MD [address] [place] [address] [facility] [place] [address] PCP - General 07/09/20 Odette Reynolds [facility] [address] [facility] [place] [address] PCP - MMO ACO PCP 03/18/23 Machine Operator Hop Worker Relationship Specialty Start Date End Date Odette Reynolds MD [address] [facility] [place] [address] PCP - General 07/09/20 Odette Reynolds MD [address] [facility] [place] [id number] PCP - MMO ACO PCP 03/18/23 Machine Operator Hop Worker Relationship Specialty Start Date End Date Odette Reynolds MD [facility] [place] [address] PCP - General 07/09/20 Machine Operator Hop Worker Relationship Specialty Start Date End Date dOette Reynolds MD [address] [place] [id number] PCP - General 07/09/20 FOR RECORDS PERTAINING TO PATIENTS WHO ARE OR HAVE BEEN ENROLLED IN A CHEMICAL DEPENDENCY/SUBSTANCEABUSE PROGRAM, SOME INFORMATION MAY BE OMITTED. This clinical summary was aggregated from multiple sources. Caution should be exercised in using it in the provision of clinical care. This summary normalizes information from multiple sources, and as a consequence, information in this document may materially change the coding, format and clinical context of patient data. In addition, data may be omitted in some cases. CLINICAL DECISIONS SHOULD BE BASED ON THE PRIMARY CLINICAL RECORDS. [facility] [employer] [facility]. provides no warranty or guarantee of the accuracy or completeness of information in this document.
== END | disposition home or self-care (01) ==
PROVIDERS: PCP Family Medicine; Referring Provider Nurse Practitioner Women's Health; Visit Provider Nurse Practitioner Women's Health
DX: R76.0 Raised antibody titer (principal)
CPT/HCPCS: 36415

== ENCOUNTER → 2024-08-25 | Outpatient (CLI) | payer OTHER, SELFPAY | END | disposition home or self-care (01) | LOC: US 07:55 | PROVIDERS: PCP Family Medicine; Referring Provider Advanced Practice Midwife; Visit Provider Advanced Practice Midwife | DX: O24.419 Gestational diabetes mellitus in pregnancy, unspecified control (principal); Z3A.00 Weeks of gestation of pregnancy not specified | CPT/HCPCS: 76816 ==

== ENCOUNTER → 2024-09-19 | Outpatient (CLI) | payer OTHER, SELFPAY | END | disposition home or self-care (01) | PROVIDERS: Nurse Practitioner Women's Health; PCP Family Medicine; Referring Provider Advanced Practice Midwife; Visit Provider Advanced Practice Midwife | DX: O09.93 Supervision of high risk pregnancy, unspecified, third trimester (principal); Z3A.00 Weeks of gestation of pregnancy not specified | CPT/HCPCS: 36415; 87081 ==

== ENCOUNTER → 2024-09-22 | Outpatient (CLI) | payer OTHER, SELFPAY ==
--- NOTE | 2024-09-22 11:34 | US_ITS ---
EXAM: US , LIMITED CLINICAL INDICATION: GDM, GROWTH TECHNIQUE: Real-time limited ultrasound of the maternal uterus with image documentation. COMPARISON: 08/25/2024 FINDINGS: FETUS: Estimated age: 37 weeks, 1 day. ESTEFANI: 10/12/2024. EFW: Estimated weight: 2750 g (32%). BPD: 9.47 cm, 38 weeks, 4 days (97%). HC: 34.07 cm, 39 weeks, 2 days (83%). AC: 31.46 cm, 35 weeks, 3 days (20%). FL: 6.63 cm, 34 weeks, 1 day (4%). POSITION: Cephalic presentation. HEART RATE: heart rate: 143 bpm. PLACENTA: Posterior placenta. AMNIOTIC FLUID: Amniotic fluid volume is 10.1 cm with a maximal vertical pocket of 4.9 cm. CERVIX: The cervix is closed measuring 3.8 cm. US/OB Limited With Biometrics IMPRESSION: Single viable IUP measuring 37 weeks, 1 day. Interval growth. Estimated weight is 2750 g (32 percentile). Electronically Signed: Kendall Landers DO at 22:01 EST ,
== END | disposition home or self-care (01) ==
LOC: US 11:34
PROVIDERS: PCP Family Medicine; Referring Provider Advanced Practice Midwife; Visit Provider Advanced Practice Midwife
DX: O24.419 Gestational diabetes mellitus in pregnancy, unspecified control (principal); Z3A.00 Weeks of gestation of pregnancy not specified
CPT/HCPCS: 76816

== ENCOUNTER 2024-10-08 19:00 | Inpatient (IN) | payer OTHER, SELFPAY ==
[2024-10-08 19:38] VITALS: BP 136/83; PULSE 90; RESP 16; TEMP 36.6; O2SAT 96
[2024-10-08 19:58] VITALS: BMI 36.4
--- NOTE | 2024-10-08 20:09 | HP.PCM.OB_ITS ---
HPI - General General Date of Admission: 10/08/24 HPI Narrative MARQUES RUVALCABA, is a 28 F @ 39 weeks presents for IOL secondary to gestational diabetes, confrtolled with metformin. no vb lof good fm on regular ctx Maternal Data Information ESTEFANI Calculator Estimated Delivery Date Method Current WG Current Estimate 10/16/24 LMP (Certain) 39w 0d Other Estimates 10/16/24 Ultrasound #1 39w 0d PFSH PFSH Medical History hemorrhage Gestational diabetes Anxiety Anemia Patent foramen ovale Palpitations Low lying placenta nos or without hemorrhage, second trimester False-positive serological test result Home Medications ?Medication ?Instructions ?Recorded ?Last Taken ?Type escitalopram oxalate 10 mg tablet 10 mg PO DAILY anxiety 01/07/22 10/08/24 History (Lexapro) lansoprazole 30 mg capsule,delayed 30 mg PO DAILY gerd 01/07/22 10/08/24 History release famotidine 40 mg tablet 40 mg PO DAILY 02/29/24 10/08/24 History multivit-min no.71-iron fum 28 cap PO 02/29/24 10/08/24 History mg-folate no.1 1 mg-dha 300 mg capsule (PNV-[place]) metformin 500 mg tablet 500 mg PO QDAY diabetes #60 tabs 08/22/24 10/08/24 Rx blood sugar diagnostic (Blood #120 ea 08/28/24 Unknown Rx Glucose Test strips) blood-glucose meter #1 ea 08/28/24 Unknown Rx lancets #200 ea 08/28/24 Unknown Rx Allergy/AdvReac Type Severity Reaction Status Date / Time No Known Allergies Allergy Verified 10/05/24 10:09 Family History Father Asthma Anxiety Surgical History S/P wisdom tooth extraction S/P endoscopy Social History adopted: No household members: spouse and children number of children: 1 current occupational status: employed 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 current occupational exposures/hazards: No pets and animals: Yes (avoid litter box) pets and animals: cat(s) history of recent travel: Yes ([employer]- January 2024) out of state: Yes sexually active: Yes Smoking Status: Never smoker alcohol intake: current alcohol intake frequency: holidays/special occasions only details: Not while substance use type: does not use well-balanced diet: daily or most days caffeine: Yes Type: coffee Number of servings: 1 eating out: 1-3 times/week during the past year weight has: increased > 10 lbs what type of physical activity do you participate in: none seatbelt use: always do you feel safe at home: Yes additional social history: Jagjit - [employer] History 2 Elective abortions Hx Para 1 Spontaneous abortions Hx # Term Pregnancies Ectopic pregnancies Hx # Pregnancies Multiple births # of living children 1 Past Pregnancies Del. Date Name GA/Weeks Outcome Route Bth Weight Infant Gen Labor Lgth Anesthesia Del Locatn Provider FOB 08/27/22 Cristina 41 live - full term 7#11oz Female epi dural [facility] Marcia Weaver Visit Details Expected Delivery Route/Plan Labor Preferences- CB/BF classes: [] labor support person: [] labor intervention preferences: [] pain management options preferred: [] cut cord/dad catch: [] : [] PP control planned: [] discussed possible routes of delivery and associated risks: [] special requests: [] Plans Covid status: [] Flu vaccine: Tdap vaccine: given Rhogam: given LARC form signed: yes Problem list reviewed and updated with the most current plan of care details and appropriate orders placed. Relevant counseling for the gestational age provided. Continue routine care and follow up unless otherwise noted in visit notes/problem list details OB Flowsheet Initial Weight: Not Recorded Date -?-?-?-?-?-?-?-?-?-?-?-?- EGA Weight BP Urine Prot -?-?-?-?-?-?-?-?-?-?-?-?- Glucose FHR FuHt Pres Dilation -?-?-?-?-?-?-?-?-?-?-?-?- Effaced St Visit Note 03/06/24 -?-?-?-?-?-?-?-?-?-?-?-?- 8w 0d 181 lb 6 oz 112/76 -?-?-?-?-?-?-?-?-?-?-?-?- 147 -?-?-?-?-?-?-?-?-?-?-?-?- JV- CRL consiste nt with LMP. large yolk sac. plan for NIPT. small RAJIV 7mm 04/03/24 -?-?-?-?-?-?-?-?-?-?-?-?- 12w 0d 175 lb 113/77 Negative -?-?-?-?-?-?-?-?-?-?-?-?- Negative 160 -?-?-?-?-?-?-?-?-?-?-?-?- KW- no vb/crampi ng. US ordered 05/01/24 -?-?-?-?-?-?-?-?-?-?-?-?- 16w 0d 174 lb 102/62 -?-?-?-?-?-?-?-?-?-?-?-?- 156 -?-?-?-?-?-?-?-?-?-?-?-?- KW- no vb/crampi ng. to call and schedule US. declines AFP. 06/01/24 -?-?-?-?-?-?-?-?-?-?-?-?- 20w 3d 174 lb 106/69 Trace -?-?-?-?-?-?-?-?-?-?-?-?- Negative 150 -?-?-?-?-?-?-?-?-?-?-?-?- SM- no vb lof cr amping. SM- no vb lof cramping. plan monthly titers SM- no vb lof cramping. disc ussed with patient will repeat titer today to make sure it is stable at low, and will review with other providers plan of care 07/03/24 -?-?-?-?-?-?-?-?-?-?-?-?- 25w 0d 181 lb 4 oz 100/67 Nega tive -?-?-?-?-?-?-?-?-?-?-?-?- Negative 161 26 -?-?-?-?-?-?-?-?-?-?-?-?- JV- no lof, vagi nal bleeding, or cramping. still needs titers. will go with FOB 07/26/24 -?-?-?-?-?-?-?-?-?-?-?-?- 28w 2d 185 lb 2 oz 111/78 Nega tive -?-?-?-?-?-?-?-?-?-?-?-?- Negative 150 28 -?-?-?-?-?-?-?-?-?-?-?-?- JV- yola titer is 2 now, was 1. repeat in 30 days. Rhogam given. glucola is pending. 08/09/24 -?-?-?-?-?-?-?-?-?-?-?-?- 30w 2d 186 lb 6 oz 110/70 Nega tive -?-?-?-?-?-?-?-?-?-?-?-?- Negative 161 30 -?-?-?-?-?-?-?-?-?-?-?-?- MH-No Vb, LOF. G ood FM. Tdap. Larc. Rpt titer. 08/22/24 -?-?-?-?-?-?-?-?-?-?-?-?- 32w 1d 188 lb 112/75 -?-?-?-?-?-?-?-?-?-?-?-?- 100 g/dL 140 -?-?-?-?-?-?-?-?-?-?-?-?- KW- no vb/lof/ct x. félix quintana. BS over protocol and discussed with FREDDY to start Metformin 500 at HS. start NSTs and growth US ordered. 08/25/24 -?-?-?-?-?-?-?-?-?-?-?-?- 32w 4d 187 lb 4 oz 113/80 -?-?-?-?-?-?-?-?-?-?-?-?- 130 -?-?-?-?-?-?-?-?-?-?-?-?- KW- NST only-kai ctive 08/29/24 -?-?-?-?-?-?-?-?-?-?-?-?- 33w 1d 187 lb 4 oz 123/75 Nega tive -?-?-?-?-?-?-?-?-?-?-?-?- Negative 135 -?-?-?-?-?-?-?-?-?-?-?-?- KW- no vb/lof/ct x. good fm. BS reviewed and controlled. warm compress for groin abscess. KW- no vb/lof/ctx. good fm. BS reviewed and controlled. warm compress for groin abscess. US reviewed 09/01/24 -?-?-?-?-?-?-?-?-?-?-?-?- 33w 4d 188 lb 4 oz 126/80 Nega tive -?-?-?-?-?-?-?-?-?-?-?-?- Negative 135 -?-?-?-?-?-?-?-?-?-?-?-?- KW-NST only reac tive 09/05/24 -?-?-?-?-?-?-?-?-?-?-?-?- 34w 1d 190 lb 4 oz 118/84 Nega tive -?-?-?-?-?-?-?-?-?-?-?-?- Negative 140 -?-?-?-?-?-?-?-?-?-?-?-?- MH-reactive NST. Good FM. No VB. She has draining lump on buttocks-examined to be resolving occlusion cyst inner left buttocks/warm soaks. Call with worsening sx 09/08/24 -?-?-?-?-?-?-?-?-?-?-?--?- 34w 4d 192 lb 2 oz 124/86 124/86 Negative -?-?-?-?-?-?-?-?-?-?-?-?- Negative 135 -?-?-?-?-?-?-?-?-?-?-?-?- LC- nst only. gl ucose stable. 09/13/24 -?-?-?-?-?-?-?-?-?-?-?-?- 35w 2d 190 lb 6 oz 114/72 Nega tive -?-?-?-?-?-?-?-?-?-?-?-?- Negative 130 -?-?-?-?-?-?-?-?-?-?-?-?- MH-No VB, LOF> G ood FM. Reactive NST. Glucose stable 09/19/24 -?-?-?-?-?-?-?-?-?-?-?-?- 36w 1d 192 lb 107/73 -?-?-?-?-?-?-?-?-?-?-?-?- 125 0 -?-?-?-?-?-?-?-?-?-?-?-?- KW- no vb/lof/ct x. good fm. reactive NST. GBS and antibody titer today. growth US on wednesday09/22/24 -?-?-?-?-?-?-?-?-?-?-?-?- 36w 4d 193 lb 8 oz 114/76 Nega tive -?-?-?-?-?-?-?-?-?-?-?-?- Negative 130 -?-?-?-?-?-?-?-?-?-?-?-?- LC- no vb/ctx/lo f. good fm. reactive nst. glucose controlled. fasting was 6 hours and 97 all others normal. gbs neg. 09/25/24 -?-?-?-?-?-?-?-?-?-?-?-?- 37w 0d 194 lb 113/83 Negative -?-?-?-?-?-?-?-?-?-?-?-?- Negative 115 Cephalic 1.5 -?-?-?-?-?-?-?-?-?-?-?-?- 60 -3 KW- no vb/ lof/ctx. good fm. BS controlled growth US reviewed. 39 week IOL discussed. 09/28/24 -?-?-?-?-?-?-?-?-?-?-?-?- 37w 3d 197 lb 2 oz 114/76 Nega tive -?-?-?-?-?-?-?-?-?-?-?-?- Negative 130 -?-?-?-?-?-?-?-?-?-?-?-?- KW- NST only. re active. will need IOL set up for 10/0910/02/24 -?-?-?-?-?-?-?-?-?-?-?-?- 38w 0d 197 lb 131/84 Negative -?-?-?-?-?-?-?-?-?-?-?-?- Negative 150 Cephalic 0 -?-?-?-?-?-?-?-?-?-?-?-?- -3 JV_ nst reactive. I am unable to get a finger up through the internal os. plan cytotec on 10/08/24. glucoe log is normal. 10/05/24 -?-?-?-?-?-?-?-?-?-?-?-?- 38w 3d 197 lb 6 oz 120/77 Nega tive -?-?-?-?-?-?-?-?-?-?-?-?- Negative 130 -?-?-?-?-?-?-?-?-?-?-?-?- KW NST only reac tive. has IOL set up NST FHR Rate Baby A Baseline: 130 Variability:: Moderate Accelerations:: 15 x 15 Decelerations:: None NST Reactive:: Yes FHR Category:: Category I Uterine Activity:: irregular ROS Constitutional Constitutional: Reports systems reviewed and no addt'l complaints, except as documented Eyes Eyes: Denies change in vision ENT HEENT: Reports systems reviewed and no addt'l complaints, except as documented; Denies headache(s) Cardiovascular Cardiovascular: Reports systems reviewed and no addt'l complaints, except as documented; Denies chest pain or dyspnea Respiratory/Chest Respiratory/Chest: Reports systems reviewed and no addt'l complaints, except as documented Gastrointestinal Gastrointestinal: Reports systems reviewed and no addt'l complaints, except as documented; Denies abdominal pain Genitourinary Genitourinary: Reports systems reviewed and no addt'l complaints, except as documented, contractions Details: present (irregular) and movement Details: present; Denies dysuria or genital lesions Musculoskeletal Musculoskeletal: Reports systems reviewed and no addt'l complaints, except as documented Neurologic Neurologic: Reports systems reviewed and no addt'l complaints, except as documented Endocrine Endocrinology: Reports systems reviewed and no addt'l complaints, except as documented Vital Signs Vital Signs Vital Signs: 10/08/24 19:38 10/08/24 19:38 10/08/24 19:38 Temperature Temperature Source Pulse Rate 90 Blood Pressure 136/83 H BP Systolic 136 BP Diastolic 83 Pulse Ox 96 10/08/24 19:38 10/08/24 19:38 10/08/24 19:38 Temperature 97.9 F Temperature Source Temporal Temporal Pulse Rate Blood Pressure BP Systolic BP Diastolic Pulse Ox 10/08/24 19:38 Temperature 97.9 F Temperature Source Pulse Rate Blood Pressure BP Systolic BP Diastolic Pulse Ox Weight Weight: 199 lb 3.2 oz Body Mass Index (BMI) 36.4 Physical Exam Const alert, oriented x3, no apparent distress and healthy appearing HEENT normocephalic and moist oral mucous membranes Head and Scalp: atraumatic Neck full ROM, no lymphadenopathy, supple and thyroid normal General: trachea midline Lymph Lymphatic: no lymphadenopathy noted Chest inspection of chest normal Resp normal respiratory effort Cardio regular rate GI soft to palpation and non-tender GI Narrative: gravid Inspection: gravid external exam normal Manual OB Exam: estimated gestational size appropriate, presentation cephalic, dilated, effaced and station Extremity normal to inspection General Extremity: Negative for edema Skin no rashes or lesions noted Neuro no focal motor deficits and deep tendon reflexes 2+ bilaterally Motor Exam: strength 5/5 throughout and clonus absent Psych mental status grossly normal Labs Labs Labs: Blood Type A NEGATIVE Antibody Screen POSITIVE H Hct 35.7 % (37-47) L Hgb 11.7 g/dL (12.0-15.0) L Pap Smear Negative Obstetrics Ultrasound Syphilis Total Ab Non-reactive Rubella IgG Antibody Reactive (Nonreactive) Hep Bs Antigen Non-Reactive (Nonreactive) Hepatitis C Antibody Non-Reactive (Nonreactive) Chlamydia DNA ([place]) Negative (Negative) N.gonorrhoeae DNA ([place]) Negative (Negative) HIV 1&2 Antibody Non-Reactive (Nonreactive) Glucose 1 Hr 50 gm 165 mg/dL (70-140) H Gest Glucose Tolerance MG/DL Miscellaneous Test Assessment & Plan (1) Gestational diabetes mellitus (GDM) affecting , antepartum: COMMENT: >90% BS readings wnl, metformin (2) Abnormal glucose affecting : COMMENT: QID testing: checking X 1 wk: 50% abnormal. Not watching diet. Discussed carbs/glucose. QID testing X 2 wk and see again. Ref dietitian. (3) Abnormal antibody titer: COMMENT: anti - M antibody, increased from 1:1 to 1:2 (june), rpt in mid july 27:stable at 2. 12/6: to low to titer. Rpt Q4wk Anti-M is an unpredictable antibody and serial antibody titers are not very reliable. serial titers should still be collected. offer FOB testing for m antibody next visit:will consider after her next level done. After delivery the infant's MN antigen status should be determined (4) Rh negative state in antepartum period: COMMENT: Rhogam @28 wks & PRN bleeding (5) Obesity (BMI 30.0-34.9): COMMENT: HgbA1c ordered with NOB labs (6) Supervision of high-risk : QUALIFIERS: Trimester: third trimester Qualified Code(s): O09.93 - Supervision of high risk , unspecified, third trimester COMMENT: PRR, , ESTEFANI 10/16/24, PC Cristina, Jagjit (7) : QUALIFIERS: Weeks of gestation: 38 weeks Qualified Code(s): Z3A.38 - 38 weeks gestation of COMMENT: GBS neg, elects NIPT, normal anatomy (8) Family history of Down syndrome: COMMENT: Jagjit's brother. NIPT low risk (9) Anxiety: COMMENT: lexapro. counseling. (10) GERD (gastroesophageal reflux disease): QUALIFIERS: Esophagitis presence: without esophagitis Qualified Code(s): K21.9 - Gastro-esophageal reflux disease without esophagitis COMMENT: [place] coronel. PLAN: Plan Patient presents IOL, plan management for with cytotec then pit. Pain management: plans epidural. GBS negative. Management of any complications: gdm I have reviewed the [facility] and made any clinically relevant updates.
[2024-10-08] MEDS: miSOPROStol 25 MCG TABLET VAGINAL (20:47)
[2024-10-08 20:54] VITALS: BP 113/62; PULSE 86
[2024-10-08 20:55] VITALS: PULSE 86; RESP 18; TEMP 36.5; O2SAT 97
[2024-10-08 20:58] LABS: Absolute Lymphocyte Count 1.72 X10^3/uL (0.83-4.51); Absolute Neutrophil Count 6.1 X10^3/uL (2.0-7.7); Basophil# 0.01 X10^3/uL; Basophil% 0.1 % (0-1); Eosinophil# 0.05 X10^3/uL; Eosinophils% 0.6 % (0-5); Hematocrit 35.7 % (37-47); Hemoglobin 11.7 g/dL (12.0-15.0); Lymphocyte # 1.72 X10^3/ul (0.83-4.51); Mean Corp Hgb Conc 32.8 g/dL (32-36); Mean Corpuscular Hgb 29.3 pg (27.0-32.0); Mean Corpuscular Volume 89.3 fL (81-99); Mean Platelet Vol. 10.4 fl (6.2-12.0); Monocyte# 0.74 X10^3/uL; Monocyte% 8.6 % (0-10); NRBC Flagged by Analyzer 0 % (0-5); Neutrophil # 6.05 X10^3/uL (2.7-7.7); Neutrophil % 70.1 % (47-70); Platelet Count 177 K/mm3 (150-450); RBC Distribution Width CV 14.1 % (11.6-14.6); RBC Distribution Width SD 46.1 fl (35.1-43.9); White Blood Count 8.6 K/mm3 (4.4-11.0)
[2024-10-08 21:23] LABS: Bedside Glucose 156 mg/dL (74-106)
[2024-10-08 21:23] LABS: Bedside Glucose 110 mg/dL (74-106)
[2024-10-08] MEDS: 0.9% Saline Lock 10 ML Syringe IV (21:37)
[2024-10-08 22:15] LABS: Syphilis Antibodies Non-reactive
[2024-10-09] VITALS (84 sets, daily range): BP systolic 67–142; BP diastolic 43–95; PULSE 53–119; RESP 16–18; TEMP 36.1–36.8; O2SAT 92–100
--- NOTE | 2024-10-09 00:49 | NURSING ---
Late entry from 10/08/24 @ 2019. Dr. Hernandez on unit and informed by this RN of pt's initial BGT result of 156. Glucose was taken at [address]. Hernandez, RN to continue to check BGT's per protcol (1 more q1 hour, then q4 hours in latent labor). JOSHUA Cleary
[2024-10-09] MEDS: miSOPROStol 25 MCG TABLET VAGINAL ×2 (00:52→05:05)
[2024-10-09 01:21] LABS: Bedside Glucose 98 mg/dL (74-106)
[2024-10-09 05:30] LABS: Bedside Glucose 90 mg/dL (74-106)
--- NOTE | 2024-10-09 08:26 | PCM.PN.BLA ---
Progress Note /-2 plan pitocin and epidural, arom when able. cat I tracing
[2024-10-09] MEDS: Lactated Ringers 1,000 ML 50 ML IV (09:05)
[2024-10-09] MEDS: Lactated Ringers 1,000 ML 999 ML IV (09:05)
[2024-10-09] MEDS: Oxytocin 15 Units/NS 250ml 15 UNITS/250 ML IV.SOLN 2 UNITS IV (09:10)
[2024-10-09 09:30] LABS: Bedside Glucose 86 mg/dL (74-106)
[2024-10-09] MEDS: fentaNYL-bupivacaine (epidural) 100 ML BAG EPIDURAL (10:01)
[2024-10-09 12:08] LABS: Bedside Glucose 68 mg/dL (74-106)
[2024-10-09] MEDS: Oxytocin 15 Units/NS 250ml 15 UNITS/250 ML IV.SOLN 334 UNITS IV (12:22)
[2024-10-09 13:09] LABS: Bedside Glucose 75 mg/dL (74-106)
[2024-10-09 13:09] LABS: Bedside Glucose 113 mg/dL (74-106)
--- NOTE | 2024-10-09 13:20 | OB.VAGDELI_ITS ---
Assessment & Plan (1) Gestational diabetes mellitus (GDM) affecting , antepartum: COMMENT: >90% BS readings wnl, metformin (2) Abnormal glucose affecting : COMMENT: QID testing: checking X 1 wk: 50% abnormal. Not watching diet. Discussed carbs/glucose. QID testing X 2 wk and see again. Ref dietitian. (3) Abnormal antibody titer: COMMENT: anti - M antibody, increased from 1:1 to 1:2 (june), rpt in mid july 27:stable at 2. 12/6: to low to titer. Rpt Q4wk Anti-M is an unpredictable antibody and serial antibody titers are not very reliable. serial titers should still be collected. offer FOB testing for m antibody next visit:will consider after her next level done. After delivery the 's [place] antigen status should be determined (4) Rh negative state in antepartum period: COMMENT: Rhogam @28 wks & PRN bleeding (5) Obesity (BMI 30.0-34.9): COMMENT: HgbA1c ordered with NOB labs (6) Supervision of high-risk : QUALIFIERS: Trimester: third trimester Qualified Code(s): O09.93 - Supervision of high risk , unspecified, third trimester COMMENT: PRR, , ESTEFANI 10/16/24, NAEEM Evans, Jagjit (7) : QUALIFIERS: Weeks of gestation: 38 weeks Qualified Code(s): Z3A.38 - 38 weeks gestation of COMMENT: GBS neg, elects NIPT, normal anatomy (8) Family history of Down syndrome: COMMENT: Jagjit's brother. NIPT low risk (9) Vaginal delivery: COMMENT: SM IOL GDM boy [place] 39 Maternal Data Information ESTEFANI Calculator Estimated Delivery Date Method Current WG Current Estimate 10/16/24 LMP (Certain) 39w 0d Other Estimates 10/16/24 Ultrasound #1 39w 0d Vaginal Delivery Maternal Presentation Maternal Presentation: see assessment and plan Vaginal Delivery Information Procedure Performed: Spontaneous Vaginal Delivery Surgeon/Practitioner: Alexandra Hernandez Date of Procedure: 10/09/24 Pre-Procedure Diagnosis: see assessment and plan Post-Procedure Diagnosis: same Type of anesthesia: Epidural Estimated Blood Loss: 200 Findings Description of procedure: Patient began pushing and delivered the head in the SHUBHAM presentation. The head was delivered atraumatically. The anterior and posterior shoulders delivered without complication followed by the rest of the infant and the was placed on the maternal abdomen. Delayed cord clamping was employed for approximately 60 seconds. Cord was clamped and cut and gentle traction was applied to the cord and the placenta delivered spontaneously immediately following it was noted to be intact with three-vessel cord. The perineum and vagina were inspected and was noted to have a first -degree laceration that was repaired in the usual fashion with 3-0 vicryl rapide . EBL was 200. Patient and tolerated delivery well. 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
--- NOTE | 2024-10-09 13:22 | DCINST_ITS ---
Discharge Instructions Diet Discharge Diet: No restrictions DC O2, CPAP, BIPAP needs Home O2 Discharge instructions: No Dressing / Incision Discharge Activity: Return to Normal Activity, May Not Drive (while taking narcotic pain medications.) and May Shower May resume sexual activity in: 4-6 weeks Dressing / Incision Call your doctor if your incision/area has: Continuous Slow Oozing, Sudden Increased Bleeding, Increased Pain/ Swelling, Increased Redness and Foul Smelling Discharge Follow Up Care Please Follow Up With: Alexandra Hernandez MD When: Call [phone] to make an appointment with your doctor in 6 weeks. If you had elevated blood pressure or 4th degree laceration, you will need to be seen in 2 weeks. Test Results: Test results from this visit will be discussed in further detail at your follow- up appointment, if applicable. Discharge Plan Admission Admit Date/Time: 10/08/24 19:00 Attending Provider: Alexandra Hernandez Primary Care Provider: Odette Chao Discharge Orders/Prescriptions Prescriptions: No Action escitalopram oxalate [Lexapro] 10 mg tablet 10 mg PO DAILY lansoprazole 30 mg capsule,delayed release(DR/EC) 30 mg PO DAILY PNV-[place] 28-1-300 mg capsule PO famotidine 40 mg tablet 40 mg PO DAILY metformin 500 mg tablet 500 mg PO QDAY Qty: 60 3RF (DME) Blood Glucose Test Strip See Rx Instructions .MEDSUPPLY Qty: 120 5RF Rx Instructions: As directed-fasting & 2 hr post meals (DME) blood-glucose meter Misc See Rx Instructions .MEDSUPPLY Qty: 1 0RF Rx Instructions: As directed- Test fasting and 2 hours after meals (DME) lancets Misc See Rx Instructions .MEDSUPPLY Qty: 200 5RF Rx Instructions: As directed-fasting & 2 hr post meals Referrals / Follow Up: Odette Chao MD [Primary Care Provider] - Disposition Disposition (needs filled in before D/C Order can be placed): Home, Self Care
[2024-10-09] MEDS: Methylergonovine 0.2 MG/ML Ampul IM (15:05)
[2024-10-09] MEDS: miSOPROStol 200 MCG Tablet 1000 MCG RC (15:15)
[2024-10-09] MEDS: Lactated Ringers 500 ML 999 ML IV (15:15)
[2024-10-09] MEDS: TRANEXAMIC ACID 1,000 MG in 0.9% Normal Saline (100mL Bag) 100 ML 440 MG IV (15:20)
[2024-10-09] MEDS: Ondansetron 4 MG/2 ML Vial IV (15:20)
--- NOTE | 2024-10-09 15:21 | PCM.PN.BLA ---
Progress Note delayed hemorrhage due to uterine atony. given methergine, hemabate, txa, cytotec, massage, cleared out clot and total EBL including delivery 1500 cc. second iv and labs drawn and sent, 2 units blood on hold. us done no retained POC seen. stable now, continue to monitor. Assessment & Plan Assessment/Plan (1) Delayed hemorrhage:
[2024-10-09 15:23] LABS: Absolute Lymphocyte Count 1.62 X10^3/uL (0.83-4.51); Absolute Neutrophil Count 10.8 X10^3/uL (2.0-7.7); Basophil# 0.03 X10^3/uL; Basophil% 0.2 % (0-1); Hematocrit 35.2 % (37-47); Hemoglobin 11.5 g/dL (12.0-15.0); Lymphocyte # 1.62 X10^3/ul (0.83-4.51); Lymphocyte % 12.1 % (19-41); Mean Corp Hgb Conc 32.7 g/dL (32-36); Mean Corpuscular Hgb 29.1 pg (27.0-32.0); Mean Corpuscular Volume 89.1 fL (81-99); Mean Platelet Vol. 10.8 fl (6.2-12.0); Monocyte# 0.85 X10^3/uL; Monocyte% 6.3 % (0-10); NRBC Flagged by Analyzer 0 % (0-5); Neutrophil % 80.7 % (47-70); Platelet Count 206 K/mm3 (150-450); RBC Distribution Width CV 14.4 % (11.6-14.6); RBC Distribution Width SD 46.3 fl (35.1-43.9); Red Blood Count 3.95 M/mm3 (4.2-5.4); White Blood Count 13.4 K/mm3 (4.4-11.0)
[2024-10-09 15:34] LABS: Partial Thromboplast Time 23.9 Seconds (24.1-36.2); Prothrombin Time (Protime)PT. 13.5 SECONDS (11.7-14.9)
[2024-10-09] MEDS: Carboprost Tromethamine 250 MCG/ML Ampul IM (15:40)
[2024-10-09] MEDS: Cefazolin 2 GM in 0.9% Normal Saline (100mL Bag) 100 ML IV (17:27)
[2024-10-09] MEDS: Loperamide 2 MG Capsule 4 MG PO (17:32)
[2024-10-09] MEDS: Cefazolin 2 GM in Syringe IV (17:33)
[2024-10-09 19:01] LABS: Hematocrit 33.4 % (37-47); Hemoglobin 10.9 g/dL (12.0-15.0); Mean Corp Hgb Conc 32.6 g/dL (32-36); Mean Corpuscular Hgb 29.5 pg (27.0-32.0); Mean Corpuscular Volume 90.5 fL (81-99); Mean Platelet Vol. 10.5 fl (6.2-12.0); Platelet Count 159 K/mm3 (150-450); RBC Distribution Width CV 14.4 % (11.6-14.6); RBC Distribution Width SD 46.6 fl (35.1-43.9); Red Blood Count 3.69 M/mm3 (4.2-5.4); White Blood Count 15.1 K/mm3 (4.4-11.0)
[2024-10-09] MEDS: 0.9% Saline Lock 10 ML Syringe IV (21:52)
[2024-10-10] VITALS (7 sets, daily range): BP systolic 109–130; BP diastolic 61–76; PULSE 85–104; RESP 14–16; TEMP 36.6–37.6; O2SAT 93–96
[2024-10-10 06:39] LABS: Bedside Glucose 82 mg/dL (74-106)
[2024-10-10] MEDS: FLU VACC 2024-25(6MOS UP)/PF 45 MCG/0.5 ML SYRINGE IM (08:20)
[2024-10-10] MEDS: Benzocaine/Lanolin/Aloe Vera 85 GM Spray 1 SPRAY TOPICAL (08:21)
[2024-10-10 08:25] LABS: Absolute Neutrophil Count 6.8 X10^3/uL (2.0-7.7); Basophil# 0.02 X10^3/uL; Basophil% 0.2 % (0-1); Eosinophil# 0.04 X10^3/uL; Eosinophils% 0.4 % (0-5); Hematocrit 26.1 % (37-47); Hemoglobin 8.6 g/dL (12.0-15.0); Lymphocyte % 16.6 % (19-41); Mean Corpuscular Hgb 29.9 pg (27.0-32.0); Mean Corpuscular Volume 90.6 fL (81-99); Monocyte% 6.7 % (0-10); NRBC Flagged by Analyzer 0 % (0-5); Neutrophil # 6.82 X10^3/uL (2.7-7.7); Neutrophil % 75.7 % (47-70); Platelet Count 136 K/mm3 (150-450); RBC Distribution Width CV 14.5 % (11.6-14.6); RBC Distribution Width SD 47.3 fl (35.1-43.9); Red Blood Count 2.88 M/mm3 (4.2-5.4)
--- NOTE | 2024-10-10 08:47 | PN.OBGYN_ITS ---
Subjective Subjective Patient doing well without complaints. Tolerating PO. Ambulating and voiding without difficulty. Feeding well. Denies chest pain, shortness of breath, calf pain/swelling, fevers, chills, lightheadedness.did have event overnight of feeling dizzy, cold. since showering she has not had any further symptoms, ambulating without symptoms. Objective Data Objective Data Vital Signs: Vital Signs Temp Pulse Resp BP Pulse Ox O2 Del Method 97.9 F 92 16 109/64 96 Room Air 10/10/24 08:10 10/10/24 08:11 10/10/24 08:10 10/10/24 08:11 10/10/24 08:11 10/10/24 08:10 Oxygen Delivery Method Room Air Weight: 199 lb 3.2 oz Body Mass Index (BMI) 36.4 Intake & Output: Intake and Output for Last 24 Hours 10/08/24 10/09/24 10/10/24 23:59 23:59 23:59 Intake Total 2157.10 / 2157.10 Output Total 1800 / 1800 400 / 400 Balance 357.10 / 357.10 -400 / -400 Lab / Micro Data 10/10/24 08:15 Labs: Laboratory Results - last 24 hr 10/08/24 21:35: Blood Type A NEGATIVE, Antibody Screen POSITIVE H, Antibody Identification Cancelled, Crossmatch See Detail 10/09/24 09:12: POC Glucose 86 10/09/24 11:41: POC Glucose 68 L 10/09/24 12:02: POC Glucose 75 10/09/24 12:50: POC Glucose 113 H 10/09/24 15:10: WBC 13.4 H, RBC 3.95 L, Hgb 11.5 L, Hct 35.2 L, MCV 89.1, MCH 29.1, MCHC 32.7, RDW Std Deviation 46.3 H, RDW Coeff of Abimael 14.4, Plt Count 206, MPV 10.8, Immature Gran % (Auto) 0.700, Neut % (Auto) 80.7 H, Lymph % (Auto) 12.1 L, [place] % (Auto) 6.3, Eos % (Auto) 0.0, Baso % (Auto) 0.2, Absolute Neuts (auto) 10.8 H, Absolute Lymphs (auto) 1.62, Nucleated RBC % 0, PT 13.5, INR 1.0, APTT 23.9 L 10/09/24 18:50: WBC 15.1 H, RBC 3.69 L, Hgb 10.9 L, Hct 33.4 L, MCV 90.5, MCH 29.5, MCHC 32.6, RDW Std Deviation 46.6 H, RDW Coeff of Abimael 14.4, Plt Count 159, MPV 10.5 10/10/24 06:10: POC Glucose 82 10/10/24 08:15: WBC 9.0, RBC 2.88 L, Hgb 8.6 L, Hct 26.1 L, MCV 90.6, MCH 29.9, MCHC 33.0, RDW Std Deviation 47.3 H, RDW Coeff of Abimael 14.5, Plt Count 136 L, MPV 10.0, Immature Gran % (Auto) 0.400, Neut % (Auto) 75.7 H, Lymph % (Auto) 16.6 L, [place] % (Auto) 6.7, Eos % (Auto) 0.4, Baso % (Auto) 0.2, Absolute Neuts (auto) 6.8, Absolute Lymphs (auto) 1.50, Nucleated RBC % 0 Physical Exam Const alert and oriented x3 HEENT normocephalic Neck full ROM Lymph Lymphatic: no lymphadenopathy noted Chest inspection of chest normal and palpation of chest normal Resp normal respiratory effort and normal air movement Cardio regular rate and regular rhythm GI normal to inspection, nondistended, normoactive bowel sounds Uterus Palpation: uterus fundus firm Extremity normal to inspection, full ROM and no pedal edema Skin no rashes or lesions noted Psych mental status grossly normal Assessment & Plan (1) Delayed hemorrhage: COMMENT: CBC this AM. asymptomatic now. iron supplements. (2) Vaginal delivery: COMMENT: SM IOL GDM boy Shah[place] 39 (3) GERD (gastroesophageal reflux disease): QUALIFIERS: Esophagitis presence: without esophagitis Qualified Code(s): K21.9 - Gastro-esophageal reflux disease without esophagitis COMMENT: pepcid, prilosec. (4) Anxiety: COMMENT: lexapro. counseling. PLAN: Plan s/p PPD #1 1. routine post delivery care 2. breast feeding- support given 3. rh positive 4. rubella immune 5. follow cbc today, resume home medications for anxiety/ gerd. IV venofer vs PO iron based on H&H. currently asymptomatic. reviewed with SM, agrees with CBC and plan.
[2024-10-10] MEDS: Iron Sucrose Complex 200 MG in 0.9% Normal Saline (100mL Bag) 100 ML 220 MG IV (09:50)
[2024-10-10] MEDS: 0.9% Saline Lock 10 ML Syringe IV (09:50)
[2024-10-10] MEDS: Famotidine 20 MG Tablet PO (09:51)
[2024-10-10] MEDS: Escitalopram Oxalate 10 MG Tablet PO (09:51)
--- NOTE | 2024-10-10 12:39 | CASEMGMT ---
Social Work Assessment Labor and Delivery Unit Patient Address: [address] [place] [address] [place] [address] Phone number: [phone] Date of Referral: 10/09/24 Time of Referral:?[id number] Referred By: Dr. Hernandez Date of Intervention: ??10/10/24 Time of Intervention:? 1200 Reason for Referral:? anxiety Sw completed chart review and acknowledges social work consult due to maternal mental health history positive for anxiety. Sw presented to bedside and introduced self to mother of baby (TRE- Deborah) and father of baby (FOJulian- Jagjit). Sw explained reason for sw involvement and completed psychosocial assessment. History obtained from: medical records, MOB and FOB. Household composition: Currently residing in the family home is MAKENNA TOLEDO, their two year old daughter, Cristina. baby to be added to household when ready for discharge. Parents deny any housing concerns at this time. Patient's parent/guardian status:? TRE states that she and MAKENNA have been together for 10 years after meeting each other in high school. This is second baby for parents together. No reports of domestic violence or intimate partner violence. ? Medical History: ?TRE is 28 year old female who is 2, para 1- now 1 following labor and delivery of . TRE received routine care during with [place]. TRE presented to hospital for induction of labor due to gestational diabetes. Baby was born on 10/09/24 at 39 weeks gestation. Baby boy, named Shahram Levi, was born weighing 7lb 17oz with apgars of 8 and 9 at one and five minutes of life, respectfully. TRE states that she is breast feeding and it goes well. Baby will be followed by Dr. Layton for pediatrics. Educational Status:? Both parents graduated high school. MOB obtained her Bachelor's degree and MAKENNA obtained his associates degree. NO concerns with reading, learning or comprehension. 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 Infant Supplies: Parents have obtained all necessary baby supplies, including: car seat, safe sleep space, clothes, diapers and wipes. Childcare/Caregiver(s):? TRE will be the primary caregiver to baby, along with BLAKEB when he is not at work. Transportation:??Both parents have their drivers license and reliable means of transportation, no barriers. Programs/Agencies Involved: ???Parents are not connected to any community resources that assist them financially. Children Services/Legal Issues:??No history of children services involvement, no issues or concerns warranting referral to be made at this time. ? Behavioral Health Issues: ??Mental Health History:?FOB denies mental health history or diagnoses. TRE states that she has been diagnosed with anxiety. MOB reports to being prescribed Lexapro by her PCP (Jeremie) to help manage her mental health symptoms. ?? Substance Use History:?Parents deny substance use prior to and during . ? Family History:Parents deny family history of addiction/ substance use or significant mental health diagnoses. ? Drug Screens: No drug screens observed during chart review. Family/Social Stressors:? Parents deny any issues, concerns or stressors. Support Systems: Parents report that they have a lot of supports found in both sides of the family, Depression/Shaken Baby/Safe Sleeping: Sw educated parents on signs and symptoms of baby blues and mood and anxiety disorders to be mindful of. MOB states that she is familiar with what to be on the lookout for, and denies experiencing any symptoms after the delivery of her first baby. FOB states that if MOB were able to struggle during this period he would be able to recognize that and would know how to support her. Sw educated parents on shaken baby prevention and ABCs of safe sleep, parents express understanding. ASSESSMENT:? MOB and baby admitted following labor and delivery of . Sw met with parents at bedside introducing self and role. MOB was sitting on couch and attentive to baby in loving and appropraite manner. FOB sitting in chair and attentive to conversation. MOB open and talkative, engaging throughout assessment, FOB more reserved and only answered questions when directly asked to him. MOB with mental health history positive for anxiety, denies symptoms after the delivery of her first baby. MOB prescribed lexapro to help manage her mental health symptoms. Parents have obtained all necessary baby supplies and have natural supports in place. PLAN:?? No other services requested or indicated. MOB and baby to be discharged when medically ready. Parents were provided literature regarding: signs and symptoms of baby blues and mood and anxiety disorders, Help Me Grow, shaken baby prevention, ABCs of safe sleep and a list of county resources that are available for them should any needs present themselves. Conor Winslow, BILINGUAL OFFICE ASSISTANT, STATISTICAL ENGINEER
[2024-10-10] MEDS: Lansoprazole 15 MG Capsule.DR 30 MG PO (14:32)
== END 2024-10-10 16:35 | disposition home or self-care (01) | DRG 806 ==
PROVIDERS: Registered Nurse; Admitting Provider Obstetrics & Gynecology; PCP Family Medicine; Visit Provider Obstetrics & Gynecology
DX: O24.425 Gestational diabetes mellitus in childbirth, controlled by oral hypoglycemic drugs (principal); Z37.0 Single live birth; O72.1 Other immediate postpartum hemorrhage; O99.214 Obesity complicating childbirth; F41.9 Anxiety disorder, unspecified; K21.9 Gastro-esophageal reflux disease without esophagitis; E66.9 Obesity, unspecified; O99.344 Other mental disorders complicating childbirth; O99.62 Diseases of the digestive system complicating childbirth; O70.0 First degree perineal laceration during delivery; Z3A.39 39 weeks gestation of pregnancy
CPT/HCPCS: 59025; 59050; 82962; 85025; 85027; 85610; 85730; 86780; 86850; 86870; 86900; 86901; 86902; 86920; 86921; 86922; 90656; 99221; J1756; A4216; G0378; J2405

== ENCOUNTER → 2024-11-22 | Outpatient (CLI) | payer OTHER, SELFPAY ==
[2024-11-29 08:23] LABS: HPV Reflexed? NOT INDICATED
== END | disposition home or self-care (01) ==
PROVIDERS: PCP Family Medicine; Referring Provider Obstetrics & Gynecology; Visit Provider Obstetrics & Gynecology
DX: Z12.4 Encounter for screening for malignant neoplasm of cervix (principal); O72.2 Delayed and secondary postpartum hemorrhage; Z3A.00 Weeks of gestation of pregnancy not specified
CPT/HCPCS: 36415; 81241; 88175; G0145

== ENCOUNTER → 2025-09-04 | Outpatient (CLI) | payer OTHER, SELFPAY | END | disposition home or self-care (01) | LOC: LABSPEC 16:14 | PROVIDERS: PCP Family Medicine; Visit Provider Obstetrics & Gynecology | DX: K61.0 Anal abscess (principal) | CPT/HCPCS: 87070; 87077; 87186; 87205 ==